=== PATIENT | male | born 1965 | race Caucasian/White ===

== ENCOUNTER 2020-12-07 13:44 | Observation (INO) | payer SELFPAY ==
[2020-12-07] VITALS (11 sets, daily range): BP systolic 128–179; BP diastolic 92–122; PULSE 101–128; RESP 17–23; TEMP 36.9–37.1; O2SAT 93–97; BMI 30.9; BMI 31.1
--- NOTE | 2020-12-07 13:50 | CM.ED ---
SOCIAL WORK Referral Source: [place] [employer] Informed by Officer Yamile, police were called for welfare check due to foul odor coming from the home. When officer entered home there was a dog that had been there for 3 weeks. Patient not caring for self, dog feces and flies throughout the home. Patient fell while officer in the home, unsteady gait, and infections to legs. Nursing staff has been updated. Plan: Anticipate admission Gentry Lowery MSW, PARTS CLERK
--- NOTE | 2020-12-07 14:25 | EX.ED.DYSGE1 ---
HPI History of Present Illness Chief Complaint: Fall Informant: patient and EMS Narrative Narrative: Patient is a 55-year-old male with no known past medical history who presents to the emergency department for wounds on his bilateral lower legs. Somebody called the police because a foul odor was coming from his apartment. They thought that somebody in there. It turns out that the patient's dog and he did not get rid of the body yet. He states that due to the leg pain he has not been doing much for the past 2 to 3 weeks. He has not been bathing either. The police state that the floor the house was covered in feces. Patient otherwise denies any other symptoms. He denies any fevers or chills. No chest pain or shortness of breath. No abdominal pain or nausea/vomiting. No change in moving bowels. He states he did have wounds on his legs before in the past but has been many years. He has not been doing anything for them. Patient does admit to drinking and smoking but states he has not done this over the past few weeks. PFSH PFS Medical History Migraines Smoker Home Medications NK 12/07/20 [History Last Taken Unknown] Allergy/AdvReac Type Severity Reaction Status Date / Time No Known Allergies Allergy Verified 12/07/20 13:50 Family History (Updated 12/07/20 @ 17:31 by Ashlyn Conley NP, CAN REFORMING MACHINE OPERATOR-C) Father Cancer Mother Cancer Brother Hypertension Surgical History (Updated 12/07/20 @ 17:32 by Ashlyn Conley NP, CAN REFORMING MACHINE OPERATOR-C) S/P tonsillectomy Social History (Updated 12/07/20 @ 17:37 by Ashlyn Conley NP, CAN REFORMING MACHINE OPERATOR-C) household members: other details: alone housing: apartment Smoking Status: Current every day smoker tobacco type: cigarettes alcohol intake: current substance use type: does not use ROS ROS ED Constitutional Constitutional ED: Denies chills or fever(s) Eyes Eyes: Denies change in vision ENT ENT ED: Denies epistaxis or rhinorrhea Cardiovascular Cardiovascular: Denies chest pain or palpitations Respiratory/Chest Respiratory/Chest: Denies cough, dyspnea or dyspnea on exertion Gastrointestinal Gastrointestinal: Denies abdominal pain, diarrhea, nausea or vomiting Genitourinary Genitourinary ED: Denies dysuria, hematuria or urinary frequency Musculoskeletal Musculoskeletal: Denies back pain or neck pain Integumentary Reports rash Neurologic Neurologic: Denies dizziness, headache(s) or weakness EXAM Physical Exam Const Vital Signs: 12/07/20 13:44 12/07/20 13:48 12/07/20 14:48 Temperature 98.7 F 98.7 F 98.6 F Temperature Source Oral Temporal Oral Pulse Rate 128 H 127 H 111 H Respiratory Rate 20 H 20 H 19 H Blood Pressure 158/117 H 158/117 H 162/121 H Blood Pressure Mean 130 130 134 Pulse Ox 94 94 95 Oxygen Delivery Method Room Air Room Air Room Air 12/07/20 15:44 12/07/20 15:48 12/07/20 16:00 Temperature 98.5 F 98.5 F Temperature Source Oral Oral Pulse Rate 115 H 109 H 115 H Respiratory Rate 22 H 21 H 23 H Blood Pressure 164/121 H 164/121 H 158/117 H Blood Pressure Mean 135 135 130 Pulse Ox 96 95 97 Oxygen Delivery Method Room Air Room Air Room Air 12/07/20 17:00 Temperature 98.6 F Temperature Source Oral Pulse Rate 106 H Respiratory Rate 17 Blood Pressure 179/122 H Blood Pressure Mean 141 Pulse Ox 97 Oxygen Delivery Method Room Air Positive well nourished and well developed General Appearance ED: well developed and NAD HEENT Reports normocephalic, head/scalp atraumatic and moist mucous membranes Eyes PERRL and EOMs intact bilaterally Neck supple Chest Wall inspection of chest normal Resp normal respiratory effort and clear to auscultation bilaterally Auscultation: Negative for rales, rhonchi or wheezes Cardio regular rhythm and no murmurs Rate: tachycardic GI normal to inspection, nondistended, normoactive bowel sounds and non-tender Palpation: soft; Negative for guarding or rebound tenderness present Extremity Extremity Narrative: There is mild edema of bilateral lower extremities. There are ulcerations with some surrounding area of erythema. There are plaques present as well. Patient's feet are very dirty and unkempt. He otherwise is neurovascularly intact. Neuro no sensory deficits noted Sensorium / Orientation: alert Motor Exam: strength 5/5 throughout Psych mental status grossly normal Skin Skin Narrative: Except for lower extremities no other rashes or lesions noted. MDM MDM MDM Narrative Medical decision making narrative: Patient presents to the emergency department for wounds to his lower legs bilaterally. On arrival to the ED he is mildly hypertensive and tachycardic. The rest of vital signs within normal limits. Apparently patient had a very foul odor coming from his house and a dog was there. There is feces covering the floor of the house as well. Patient denies bathing recently. He has not been taking care of himself for the past few weeks. Patient is agreeable to getting lab work checked at this time. We will start IV fluids given his tachycardia. Patient's lab work did not reveal a high white blood cell count. His lactic acid is high. He is tachycardic and this all could be related dehydration as opposed to sepsis. Patient's blood pressure is severely elevated. He does not follow with a physician regularly. Given the fact he has multiple issues as well as a poor home situation patient will be admitted for further evaluation and management. He understands and is agreeable this plan. He otherwise has remained stable throughout ED stay. Lab Data Labs: Laboratory Results - last 24 hr 12/07/20 12/07/20 12/07/20 13:00 13:00 13:00 WBC 10.7 RBC 4.93 Hgb 16.0 Hct 48.9 MCV 99.2 H MCH 32.5 H MCHC 32.7 RDW Std Deviation 48.0 H RDW Coeff of Flor 13.2 Plt Count 344 MPV 10.3 Immature Gran % (Auto) 1.800 H Neut % (Auto) 77.4 H Lymph % (Auto) 11.4 L [place] % (Auto) 7.2 Eos % (Auto) 1.4 Baso % (Auto) 0.8 Absolute Neuts (auto) 8.3 H Absolute Lymphs (auto) 1.22 Nucleated RBC % 0 Sodium 135 L Potassium 3.9 Chloride 100 Carbon Dioxide 29.0 Anion Gap 6 BUN 17 Creatinine 1.49 H Estim Creat Clear Calc 55.47 Est GFR (MDRD) Af Amer 63 Est GFR (MDRD) Non-Af 52 L BUN/Creatinine Ratio 11.4 Glucose 138 H Lactic Acid 5.0 H* Calcium 9.3 Total Bilirubin 0.40 AST 16 ALT 18 Alkaline Phosphatase 100 Total Protein 8.4 H Albumin 2.9 L Globulin 5.5 H Albumin/Globulin Ratio 0.5 L Radiography Diagnostic Testing: Radiology Impression Chest X-Ray 12/07/20 17:08 IMPRESSION: Normal x-ray examination of the chest. Electronically Signed: Eliu Chaudhary MD at 17:22 EDT Tel , Service support , Discharge Plan Dx/Rx/DC Orders Clinical Impression: Leg wound, right, Leg wound, left, Hypertension, uncontrolled, Adult failure to thrive, Dehydration Disposition Disposition: Acute Care [facility] Discharge Date/Time: 12/07/20 17:37
[2020-12-07 14:29] LABS: Absolute Lymphocyte Count 1.22 X10^3/uL (0.83-4.51); Absolute Neutrophil Count 8.3 X10^3/uL (2.0-7.7); Basophil# 0.09 X10^3/uL; Basophil% 0.8 % (0-1); Eosinophil# 0.15 X10^3/uL; Eosinophils% 1.4 % (0-5); Hematocrit 48.9 % (40-54); Lymphocyte # 1.22 X10^3/ul (0.83-4.51); Lymphocyte % 11.4 % (19-41); Mean Corp Hgb Conc 32.7 g/dL (32-36); Mean Corpuscular Hgb 32.5 pg (27.0-32.0); Mean Corpuscular Volume 99.2 fL (80-94); Mean Platelet Vol. 10.3 fl (6.2-12.0); Monocyte# 0.77 X10^3/uL; Monocyte% 7.2 % (0-10); NRBC Flagged by Analyzer 0 % (0-5); Neutrophil # 8.25 X10^3/uL (2.7-7.7); Neutrophil % 77.4 % (47-70); Platelet Count 344 K/mm3 (150-450); RBC Distribution Width CV 13.2 % (11.6-14.6); Red Blood Count 4.93 M/mm3 (4.6-6.2); White Blood Count 10.7 K/mm3 (4.4-11.0)
[2020-12-07 14:45] LABS: ALB/GLOB Ratio 0.5 RATIO (0.9-2.4); AST(SGOT) 16 U/L (15-37); Alanine Aminotransfer ALT/SGPT 18 U/L (16-61); Albumin, Serum 2.9 g/dL (3.2-5.0); Alkaline Phosphatase 100 U/L (45-117); Anion Gap 6 (5-15); BUN 17 mg/dL (7-18); BUN/Creat Ratio 11.4 RATIO (10-20); Calcium,Total 9.3 mg/dL (8.5-10.1); Chloride 100 mmol/L (98-107); Creatinine, Serum 1.49 mg/dL (0.70-1.30); EST Glomerular Filtration Rate 52 mL/min (>60); Est Glom Filt Rate - Afr Amer 63 mL/min (>60); Estimated Creatinine Clearance 55.47 ml/min; Globulin 5.5 g/dL (2.2-4.2); Glucose 138 mg/dL (74-106); Potassium 3.9 mmol/L (3.5-5.1); Protein, Total 8.4 g/dL (6.4-8.2); Sodium Level 135 mmol/L (136-145)
[2020-12-07] MEDS: 0.9% Normal Saline 1,000 ML 1000 ML IV ×2 (15:00→16:23)
[2020-12-07] MEDS: Cefazolin 2 GM in 0.9% Normal Saline 100 ML IV (15:58)
--- NOTE | 2020-12-07 17:04 | NURSING ---
MED SURG OBS DR TITUS UNCONTROLLED HTN, DEHYDRATION
--- NOTE | 2020-12-07 17:08 | RAD_ITS ---
STUDY: X-RAY CHEST REASON FOR EXAM: Male, 55 years old. elev lactic TECHNIQUE: Single AP portable view of the chest. COMPARISON: None. FINDINGS: The lungs are clear and expanded. There is no demonstrated pleural abnormality. Normal size heart. Normal mediastinum and mateo. Normal visualized pulmonary arteries. Normal visualized aortic arch and descending thoracic aorta. Normal visualized thoracic spine. Normal visualized ribs, clavicles, and shoulders. There is no demonstrated abnormality of the visualized soft tissue structures of the upper abdomen. RAD/Chest 1 View (Portable) IMPRESSION: Normal x-ray examination of the chest. Electronically Signed: Eliu Chaudhary MD at 17:22 EDT Tel , Service support ,
--- NOTE | 2020-12-07 17:16 | PCM.HP.STD ---
Documented by User: Ashlyn Conley NP, ELECTRICAL CONSTRUCTION PROJECT MANAGER-C 12/07/20 17:45 HPI - General General Date of Admission: 12/07/20 Date of Service: 12/07/20 Chief Complaint: Unable to care for self. HPI Narrative DAYAMI BHAT, is a 55 M who presents to the emergency room due to difficulty caring for self. Patient's neighbor called EMS for a well check due to foul smell coming from patient's apartment. Upon arrival, EMS found a dog that had approximately 3 weeks prior, dog feces on the floor. Patient was found very unkempt with feces on his feet and underneath his toenails, lower extremity wounds. Discussed with patient in the emergency room why he has not been taking care of himself and he says he has been lazy. He had not taking care of the dog due to procrastinating. He denies any history of mental illness or prior medical history. He is not on any medications. States he has not followed with a doctor for many years. He reports the past few weeks he has been feeling weak and has been using a cane to walk around the house. He has not been able to leave the house in a few weeks. He has not been bathing or taking care of himself at home. He does report a history of alcohol use although states it is not in excess and tobacco dependence however he has not used either in 2 weeks due to unable to leave the house due to lower extremity weakness. He states he has been unemployed for approximately 1 year. He does not have any family or friends locally to help take care of him. He reports his parents are and he is a twin brother who lives in [place]. He states his lower extremity wounds have been there for a few weeks. He denies fever, chills. Denies other presenting symptoms or complaints with the exception of lower extremity weakness. PFSH Medical History Migraines Smoker no medical history Home Medications NK 12/07/20 [History Last Taken Unknown] Allergy/AdvReac Type Severity Reaction Status Date / Time No Known Allergies Allergy Verified 12/07/20 13:50 Family History (Updated 12/07/20 @ 17:31 by Ashlyn Conley NP, ELECTRICAL CONSTRUCTION PROJECT MANAGER-C) Father Cancer Mother Cancer Brother Hypertension Surgical History (Updated 12/07/20 @ 17:32 by Ashlyn Jarvis ELECTRICAL CONSTRUCTION PROJECT MANAGER, ELECTRICAL CONSTRUCTION PROJECT MANAGER-C) S/P tonsillectomy Social History (Updated 12/07/20 @ 17:37 by Ashlyn Conley NP, ELECTRICAL CONSTRUCTION PROJECT MANAGER-C) household members: other details: alone housing: apartment Smoking Status: Current every day smoker tobacco type: cigarettes alcohol intake: current substance use type: does not use ROS Constitutional Constitutional: Denies change in weight, chills, fatigue, fever(s) or weakness Cardiovascular Cardiovascular: Denies chest pain, edema, lightheadedness, palpitations or syncope Respiratory/Chest Respiratory/Chest: Denies cough, dyspnea, productive cough, shortness of breath at rest, shortness of breath with exertion or wheezing Gastrointestinal Gastrointestinal: Denies abdominal pain, constipation, diarrhea, nausea or vomiting Genitourinary Genitourinary: Denies burning urination, difficulty urinating, dysuria, hematuria, urinary frequency, urinary incontinence or urinary urgency Musculoskeletal Musculoskeletal: Denies back pain, joint pain or muscle weakness Integumentary Integumentary: Reports erythema, wounds and other Details: lower extremity wounds ; Denies lesions or rash Neurologic Neurologic: Denies abnormal speech, confusion, dizziness, focal weakness, numbness, paresthesias, seizure-like activity or syncope Psychiatric Psychiatric: Denies anxiety or depression Hematologic/Lymphatic Hematologic/Lymphatic: Denies anemia, easy bleeding or easy bruising Allergic/Immunologic Allergic/Immunologic: Denies hives or asthma Vital Signs Vital Signs Vital Signs: 12/07/20 13:44 12/07/20 13:48 12/07/20 14:48 Temperature 98.7 F 98.7 F 98.6 F Temperature Source Oral Temporal Oral Pulse Rate 128 H 127 H 111 H Respiratory Rate 20 H 20 H 19 H Blood Pressure 158/117 H 158/117 H 162/121 H Blood Pressure Mean 130 130 134 Pulse Ox 94 94 95 Oxygen Delivery Method Room Air Room Air Room Air 12/07/20 15:44 12/07/20 15:48 12/07/20 16:00 Temperature 98.5 F 98.5 F Temperature Source Oral Oral Pulse Rate 115 H 109 H 115 H Respiratory Rate 22 H 21 H 23 H Blood Pressure 164/121 H 164/121 H 158/117 H Blood Pressure Mean 135 135 130 Pulse Ox 96 95 97 Oxygen Delivery Method Room Air Room Air Room Air Weight Weight: 203 lb 4.259 oz Body Mass Index (BMI) 30.9 Physical Exam Const alert, oriented x3 and no apparent distress Orientation / Consciousness: awake, oriented to person, oriented to place and oriented to time HEENT normocephalic and moist oral mucous membranes Eyes PERRL, EOMs intact bilaterally and conjunctivae normal Neck no lymphadenopathy Resp normal respiratory effort and clear to auscultation bilaterally Cardio regular rate, regular rhythm and no murmurs Peripheral Pulses: pulses 2+ throughout GI normal to inspection, nondistended, normoactive bowel sounds, non-tender and non-distended Extremity normal to inspection Skin Skin Narrative: Lower extremity extensive venous stasis skin changes with skin crusting, erythema and edema. Stool under toenails and on feet. Lesions: no lesions Rashes: no rashes Trauma: no lacerations or abrasions Neuro CN's II-XII intact bilaterally, no focal motor deficits, no sensory deficits noted and deep tendon reflexes 2+ bilaterally Psych mental status grossly normal Mood & Affect: flat affect Results Lab / Micro Data Result Diagrams: 12/07/20 13:00 12/07/20 13:00 Labs: Laboratory Results - last 24 hr 12/07/20 13:00: WBC 10.7, RBC 4.93, Hgb 16.0, Hct 48.9, MCV 99.2 H, MCH 32.5 H, MCHC 32.7, RDW Std Deviation 48.0 H, RDW Coeff of Flor 13.2, Plt Count 344, MPV 10.3, Immature Gran % (Auto) 1.800 H, Neut % (Auto) 77.4 H, Lymph % (Auto) 11.4 L, [place] % (Auto) 7.2, Eos % (Auto) 1.4, Baso % (Auto) 0.8, Absolute Neuts (auto) 8.3 H, Absolute Lymphs (auto) 1.22, Nucleated RBC % 0 12/07/20 13:00: Sodium 135 L, Potassium 3.9, Chloride 100, Carbon Dioxide 29.0, Anion Gap 6, BUN 17, Creatinine 1.49 H, Estim Creat Clear Calc 55.47, Est GFR (MDRD) Af Amer 63, Est GFR (MDRD) Non-Af 52 L, BUN/Creatinine Ratio 11.4, Glucose 138 H, Calcium 9.3, Total Bilirubin 0.40, AST 16, ALT 18, Alkaline Phosphatase 100, Total Protein 8.4 H, Albumin 2.9 L, Globulin 5.5 H, Albumin/Globulin Ratio 0.5 L 12/07/20 13:00: Lactic Acid 5.0 H* Assessment & Plan Assessment/Plan (1) Failure to thrive: (2) HTN (hypertension): PLAN: 1. Elevated blood pressure without known history of hypertension-suspect longstanding history of hypertension, patient has not been to the doctor in many years. Begin lisinopril 20 mg twice daily and Lopressor 25 mg twice daily. As needed hydralazine. Obtain echocardiogram. 2. Elevated creatinine-CKD versus AG. Unknown baseline. Possibly CKD related to uncontrolled blood pressure. Will hydrate and repeat BMP. 3. Bilateral lower extremity stasis dermatitis-wash lower extremities with soap and water, Adaptic to scabbed areas followed by Deirdre and Thomas nguyen. Podiatry consult for toenail management. 4. Failure to thrive-patient found to have dog in his apartment for 3 weeks. Has not been bathing or taking care of himself. Suspect underlying mental illness. Will obtain behavioral health consult/social work consult. PT/OT. DVT prophylaxis-Heparin subcu This patient was seen by ISAIAS Corbett under the supervision of Dr. Holden. Documented by User: Dr. Kirit Holden DO 12/07/20 18:19 HPI - General General Date of Admission: 12/07/20 [facility] Medical History Migraines Smoker Home Medications NK 12/07/20 [History Last Taken Unknown] Allergy/AdvReac Type Severity Reaction Status Date / Time No Known Allergies Allergy Verified 12/07/20 13:50 Family History (Updated 12/07/20 @ 17:31 by Ashlyn Conley NP, ELECTRICAL CONSTRUCTION PROJECT MANAGER-C) Father Cancer Mother Cancer Brother Hypertension Surgical History (Updated 12/07/20 @ 17:32 by Ashlyn Conley NP, ELECTRICAL CONSTRUCTION PROJECT MANAGER-C) S/P tonsillectomy Social History (Updated 12/07/20 @ 17:37 by Ashlyn Conley ELECTRICAL CONSTRUCTION PROJECT MANAGER, ELECTRICAL CONSTRUCTION PROJECT MANAGER-C) household members: other details: alone housing: apartment Smoking Status: Current every day smoker tobacco type: cigarettes alcohol intake: current substance use type: does not use Results Lab / Micro Data Result Diagrams: 12/07/20 13:00 12/07/20 13:00 Charges/Coding Addendum Addendum: Patient was seen and examined today independently of Ashlyn Conley, he was brought to the emergency room today after neighbors at his apartment complex complained of a smell coming from his apartment, it was noted that he had a dad dog in the apartment for several weeks. Patient was unkempt, his apartment was dirty with dog feces on the floor. Work-up in the ER included labs which showed an elevated lactic acid-this was felt to be secondary to dehydration, patient's white blood cell count was unremarkable, he was afebrile, creatinine was slightly elevated. On examination, patient had lower extremity edema along with areas of eschars over his nava areas and lower legs. These areas do not appear infected, there is no discharge from the areas. Patient's toenail care is poor. Lungs were clear to auscultation bilaterally, heart rate and rhythm was regular without evidence of murmurs, normal S1 and S2 was noted. Abdomen is soft, nontender, bowel sounds are present in all 4 quadrants. HEENT-no carotid bruits were noted, no evidence of JVD was noted. Neuro-cranial nerves II through XII are grossly intact, no focal motor deficits were noted. Psych: Patient is alert and oriented x3, he does not appear anxious or depressed. I asked the patient if he had any history of psychiatric disorder and he denied it, I asked him why he kept a animal in his apartment and he stated that I am procrastinator, I asked him why he did not take better care of himself and the patient stated that he was lazy. Patient's blood pressure was noted to be highly elevated in the emergency room, he states he has not seen a doctor in years, he has never been diagnosed with any medical problems. I believe the patient has uncontrolled blood pressure, there may be an element of dehydration present, patient will be placed in [facility], I will begin blood pressure medication and give the patient IV fluids, labs will be monitored. Patient will be seen by PT and OT. I believe the patient probably has some sort of psychiatric disorder-exact type is unknown at this time, he has at least self-neglect. We have reviewed Ashlyn Conley's history and physical including her medical assessment and plan of care and endorse it. Visit Charges OBSV E&M: 25646 Initial observation care L3
[2020-12-07 18:09] LABS: Lactic Acid 1.4 mmol/L (0.4-1.9)
[2020-12-07 18:26] LABS: Reflex Lactate? Y
--- NOTE | 2020-12-07 18:35 | ECHOCS_ITS ---
Reason For Study: HTN Procedure This was a 2D Doppler, Color Flow transthoracic echocardiogram. The study was technically difficult. Contrast injection was performed. Exam performed portable in patient room. Left Ventricle Normal LV size. Moderate concentric left ventricular hypertrophy. Left ventricular systolic function is normal. The estimated ejection fraction is 65 %. Transmitral doppler flow suggestive of impaired relaxation of left ventricle. No regional wall motion abnormalities noted. Right Ventricle Normal RV size. Normal systolic function. Atria Normal left atrium. Normal right atrium. No doppler evidence for ASD. Mitral Valve There is no mitral annular calcification. Normal mitral valve. Trivial mitral valve insufficiency. Tricuspid Valve Normal tricuspid valve. Trivial tricuspid valve insufficiency. Unable to estimate RV systolic pressure/pulmonary artery pressure due to technically difficult study. Aortic Valve Trisinus/trileaflet aortic valve. Normal aortic valve. Trivial aortic valve insufficiency. Pulmonic Valve The pulmonic valve is not well visualized. Great Vessels The aortic root is not well visualized. Pericardium/Pleural No pericardial effusion. Medication Diluted definity 3ml given slow IV push to enhance endocardial definition. MMode/2D Measurements & Calculations LVIDd: 5.0 cm IVSd: 1.5 cm LA dimension: 3.7 cm LVIDs: 2.9 cm LVPWd: 1.4 cm FS: 42.3 % LAV(MOD-bp): 54.4 ml LA A4 area: 19.2 cm2 RA A4 area: 19.9 cm2 LAV(MOD-bp) Indexed: 26.3 ml/m2 LAV(MOD-sp2): 57.9 ml LAV(MOD-sp4): 47.3 ml Time Measurements MV dec time: 0.16 sec Doppler Measurements & Calculations MV E max omar: 58.6 cm/sec Lat Peak E' Omar: 7.6 cm/sec Med Peak E' Omar: 6.3 cm/sec MV A max omar: 82.0 cm/sec E/E' lat: 7.8 E/E' med: 9.3 MV E/A: 0.72 Ao V2 max: 128.4 cm/sec AI max omar: 432.9 cm/sec LV V1 max: 117.8 cm/sec Ao max P.6 mmHg AI max P.0 mmHg LV V1 max P.5 mmHg AI dec slope: 190.9 cm/sec2 AI P1/2t: 664.2 msec PA V2 max: 79.0 cm/sec ECHO/Echo Complete W/ Contrast Interpretation Summary The study was technically difficult. Contrast injection was performed. Left ventricular systolic function is normal. The estimated ejection fraction is 65 %. Moderate concentric left ventricular hypertrophy. Trivial mitral valve insufficiency. Trivial tricuspid valve insufficiency. Trivial aortic valve insufficiency. Unable to estimate RV systolic pressure/pulmonary artery pressure due to techni brenna difficult study. Transmitral doppler flow suggestive of impaired relaxation of left ventricle Ordering Physician: Ashlyn Conley Referring Physician: Maryanne PCP Performed By: Robe Madrigal RCS
[2020-12-07] MEDS: 0.9% Normal Saline 1,000 ML 100 ML IV (19:47)
[2020-12-07] MEDS: 0.9% Saline Lock 10 ML Syringe IV (19:48)
[2020-12-07] MEDS: Metoprolol Tartrate 25 MG Tablet PO (19:55)
[2020-12-07] MEDS: Lisinopril 20 MG Tablet PO (19:55)
[2020-12-07] MEDS: Heparin Injection (Vial) 5,000 UNIT/ML VIAL 5000 UNIT SC (22:03)
[2020-12-08 04:09] VITALS: BP 126/90; PULSE 103; RESP 16; TEMP 36.9; O2SAT 94
[2020-12-08] MEDS: 0.9% Normal Saline 1,000 ML 100 ML IV (04:11)
[2020-12-08 07:49] LABS: Anion Gap 5 (5-15); BUN 10 mg/dL (7-18); BUN/Creat Ratio 10.3 RATIO (10-20); Calcium,Total 8.3 mg/dL (8.5-10.1); Chloride 108 mmol/L (98-107); Creatinine, Serum 0.97 mg/dL (0.70-1.30); EST Glomerular Filtration Rate 86 mL/min (>60); Est Glom Filt Rate - Afr Amer 104 mL/min (>60); Estimated Creatinine Clearance 85.21 ml/min; Glucose 82 mg/dL (74-106); Potassium 3.6 mmol/L (3.5-5.1); Sodium Level 141 mmol/L (136-145)
--- NOTE | 2020-12-08 08:55 | PCM.CONS.GEN ---
Assessment & Plan Assessment/Plan (1) Ulcers of both lower legs with fat layer exposed: (2) Adult failure to thrive: (3) Pain in both lower legs: (4) Left foot pain: (5) Cellulitis of left foot: (6) Cellulitis of right foot: (7) Nail dystrophy: (8) Toe pain, left: (9) Toe pain, right: (10) Ulcer of left heel and midfoot with fat layer exposed: PLAN: Patient seen and examined bedside Patient noted to be unable to take care of himself properly. Patient was found at his house after EMS was called for was that order and patient was found with a dog in his apartment and feces all over the floor in his feet. Feet were cleaned by nursing staff and were noted to have bilateral lower extremity leg ulcerations and left plantar heel ulcer. Patient also has extremity elongated thickened discoloration toenails. We will proceed with palliative care, as well as monitoring. Foot care and footgear has been discussed[place] [address] [place] toenails, with a nail nipper and both length and thickness by angling nail nippers. This was done without incident. Discussed proper wound care with the patient. Patient refused to have wounds debrided. Discussed importance of smoking cessation, blood sugar control, weight management, offloading, proper nutrition, infection control and hygiene to optimize healing potential. Prescription for surgical shoe was given to offload left heel wound. No heel weightbearing to the left foot can put pressure through the forefoot. Cultures were obtained of right leg ulceration. No noted increase in white blood cell count. Patient denies any systemic signs of illness Noted cellulitis marked with a marker on bilateral lower extremities this is improved since patient has been admitted. To continue daily wound care with Santyl to the fibrotic ulcerations bilateral lower extremities and Adaptic to the eschars covered with ABDs, Kerlix, Thomas wraps from toes to knees. All questions answered. Upon discharge patient will need to follow-up at the wound care center with any provider. Thank you for the consult. Please contact if any questions or concerns. Latosha Baptiste DPM [facility] [phone] This note was generated with [employer] dictation software. It may contain incorrect words, spelling, and punctuation that were not noted in checking the note before signing. HPI Consult Data Date of Consult: 12/08/20 HPI Narrative HPI Narrative: DAYAMI BHAT, is a 55 M who presents for failure to thrive. He was noted to have EMS called for wellness check by neighbors after smell was noted from apartment. It was noted that his dog was 3 week on his floor. There was feces on the floor. Patient relates he couldn't take care of the dog nor himself. He denies N/F/V/C/CP/SOB. Podiatry was consulted to assess lower extremity eschars and toenail care. [facility] Medical History Migraines Smoker Home Medications NK 12/07/20 [History Last Taken Unknown] Allergy/AdvReac Type Severity Reaction Status Date / Time No Known Allergies Allergy Verified 12/07/20 13:50 Family History (Updated 12/07/20 @ 17:31 by Ashlyn Conley NP, PRODUCTION PAINTER-C) Father Cancer Mother Cancer Brother Hypertension Surgical History (Updated 12/07/20 @ 17:32 by Ashlyn Conley NP, PRODUCTION PAINTER-C) S/P tonsillectomy Social History (Updated 12/07/20 @ 17:37 by Ashlyn Conley NP, PRODUCTION PAINTER-C) household members: other details: alone housing: apartment Smoking Status: Current every day smoker tobacco type: cigarettes alcohol intake: current substance use type: does not use ROS Constitutional Constitutional: Denies chills or fever(s) Cardiovascular Cardiovascular: Denies chest pain Respiratory/Chest Respiratory/Chest: Denies cough Gastrointestinal Gastrointestinal: Denies nausea or vomiting Musculoskeletal Musculoskeletal: Denies muscle cramps or muscle weakness Neurologic Neurologic: Reports numbness and tingling Physical Exam Const alert and no apparent distress General Appearance: cooperative and comfortable HEENT Head and Scalp: atraumatic Lymph Lymphatic: no lymphedema noted Resp normal respiratory effort Effort and Inspection: able to speak in complete sentences Extremity normal capillary refill and no calf tenderness General Extremity: edema bilateral lower extremity, no tenderness to palpation of joints or extremities and other findings Other Details: Capillary refill time less than 3 seconds noted to digits ; Negative for clubbing or cyanosis Peripheral Pulses: Yes posterior tibial pulses present bilateral diminished and dorsalis pedis pulses present bilateral diminished Skin General Skin Exam: atrophy and dry skin; Negative for ecchymosis, pallor or dermatitis Rashes: no rashes Wounds: wounds noted Wound Narrative: ulcers noted to multiple large bilateral lower legs anterior medial and lateral and plantar left heel No malodor, purulence, probing to bone, fluctuation, crepitus. There is surrounding erythema noted to bilateral leg ulcerations. Majority of wound sites are noted to have eschar noted without pain. There are a couple spots that have fibrotic base. Patient relates pain with palpation of these sites. Skin is atrophic and hairless. There is no erythema noted to plantar left heel wounds. Plantar heel wounds have a fibrotic base. Toenails 28622 bilateral are noted to be thickened elongated dystrophic discolored with feces noted under the nails. These are also causing patient pain to palpation. No pain to ATFL or CFL bilaterally no pain to lateral malleolus. Neuro Gait (Neuro): assistive device used cane Sensory Exam: extremities light-touch: decreased Psych Appearance: appropriate Attitude: calm Lab / Micro Data Result Diagrams: 12/07/20 13:00 12/08/20 06:54 Labs: Laboratory Results - last 24 hr 12/07/20 13:00: WBC 10.7, RBC 4.93, Hgb 16.0, Hct 48.9, MCV 99.2 H, MCH 32.5 H, MCHC 32.7, RDW Std Deviation 48.0 H, RDW Coeff of Flor 13.2, Plt Count 344, MPV 10.3, Immature Gran % (Auto) 1.800 H, Neut % (Auto) 77.4 H, Lymph % (Auto) 11.4 L, [place] % (Auto) 7.2, Eos % (Auto) 1.4, Baso % (Auto) 0.8, Absolute Neuts (auto) 8.3 H, Absolute Lymphs (auto) 1.22, Nucleated RBC % 0 12/07/20 13:00: Sodium 135 L, Potassium 3.9, Chloride 100, Carbon Dioxide 29.0, Anion Gap 6, BUN 17, Creatinine 1.49 H, Estim Creat Clear Calc 55.47, Est GFR (MDRD) Af Amer 63, Est GFR (MDRD) Non-Af 52 L, BUN/Creatinine Ratio 11.4, Glucose 138 H, Calcium 9.3, Total Bilirubin 0.40, AST 16, ALT 18, Alkaline Phosphatase 100, Total Protein 8.4 H, Albumin 2.9 L, Globulin 5.5 H, Albumin/Globulin Ratio 0.5 L 12/07/20 13:00: Lactic Acid 5.0 H* 12/07/20 17:28: Lactic Acid 1.4 12/08/20 06:54: Sodium 141, Potassium 3.6, Chloride 108 H, Carbon Dioxide 28.0, Anion Gap 5, BUN 10, Creatinine 0.97, Estim Creat Clear Calc 85.21, Est GFR (MDRD) Af Amer 104, Est GFR (MDRD) Non-Af 86, BUN/Creatinine Ratio 10.3, Glucose 82, Calcium 8.3 L Radiology Impression Chest X-Ray 12/07/20 17:08 IMPRESSION: Normal x-ray examination of the chest. Electronically Signed: Eliu Chaudhary MD at 17:22 EDT Tel , Service support ,
[2020-12-08 10:05] VITALS: BP 155/101; PULSE 94; RESP 16; TEMP 36.8; O2SAT 97
[2020-12-08 10:51] VITALS: BP 155/101; PULSE 94
[2020-12-08] MEDS: Metoprolol Tartrate 25 MG Tablet PO (10:51)
[2020-12-08] MEDS: Lisinopril 20 MG Tablet PO (10:51)
[2020-12-08] MEDS: Heparin Injection (Vial) 5,000 UNIT/ML VIAL 5000 UNIT SC (10:52)
[2020-12-08] MEDS: Menthol/Lanolin/Calamine/Znox 113 GM Tube 1 APPLIC TOPICAL (10:52)
[2020-12-08 10:54] LABS: M R Staph aureus DNA By PCR Negative (Negative); Probe Check PASS; Specimen Processing Control PASS; Staph aureus DNA By PCR NEGATIVE (Negative)
--- NOTE | 2020-12-08 11:44 | PCM.DC ---
Discharge Instructions Diet Discharge Diet: No restrictions Activity Discharge Activity: Return to Normal Activity Additional Activity Instructions:: Keep lower extremities elevated. Dressing / Incision Call your doctor if you observe: Fever of 101 or Higher, Shortness of breath, Dizziness and Chest pain Follow Up Care Test Results: Test results from this visit will be discussed in further detail at your follow-up appointment, if applicable. Discharge Plan Admission Admit Date/Time: 12/07/20 17:22 Primary Reason for Your Visit: Weakness, lower extremity wounds Attending Provider: Kirit Holden Primary Care Provider: Care Physician,No Primary Consulting Providers: Latosha Baptiste Instructions Additional Instructions / Restrictions: Continue wound care at home to lower extremities. Apply Santyl to ulcerations of lower extremities and Adaptic to the darkened areas, cover with ABDs, Kerlix and Thomas wraps from toes to knees. Recommend follow-up with wound center Discharge Orders/Prescriptions Prescriptions: New lisinopril 20 mg Tablet 20 mg PO BID Qty: 60 RF: 0 Santyl 250 unit/gram Ointment 1 applic topical DAILY Qty: 0 RF: 0 metoprolol tartrate 25 mg Tablet 25 mg PO BID Qty: 60 RF: 0 Referrals / Follow Up: Wound Health [Outside] (Any provider, 1 to 2 weeks after discharge) Care Physician,No Primary [Primary Care Provider] - See Referral Note (Established with PCP and follow-up in 1 week.) Disposition Disposition (needs filled in before D/C Order can be placed): Home, Self Care
--- NOTE | 2020-12-08 11:59 | DS.PCM_ITS ---
Documented by User: Ashlyn Conley NP, STAFF PHYSICAL THERAPY ASSISTANT-C 12/08/20 12:08 Providers Date of Admission: 12/07/20 Date of Discharge: 12/08/20 Primary Care Physician: Maryanne Primary Care Phys Consultations 12/07/20 18:35 Consult: Onc/Wound/abalone sheller Routine Comment: Consult: Podiatry Routine Consulting Provider: Latosha Baptiste Reason for Consult: Toenail care EMERGENT Consult: No MD Notified: Yes Date Notified: 12/07/20 Time Notified: 18:38 Method of Notification: Text Reason For Visit: FAILURE TO THRIVE Diagnosis Discharge Diagnosis (1) Ulcers of both lower legs with fat layer exposed: Status: Acute Code(s): L97.912 - Non-pressure chronic ulcer of unspecified part of right lower leg with fat layer exposed; L97.922 - Non-pressure chronic ulcer of unspecified part of left lower leg with fat layer exposed (2) Adult failure to thrive: Status: Acute Code(s): R62.7 - Adult failure to thrive (3) Pain in both lower legs: Status: Acute Code(s): M79.661 - Pain in right lower leg; M79.662 - Pain in left lower leg (4) Left foot pain: Status: Acute Code(s): M79.672 - Pain in left foot (5) Cellulitis of left foot: Status: Acute Code(s): L03.116 - Cellulitis of left lower limb (6) Cellulitis of right foot: Status: Acute Code(s): L03.115 - Cellulitis of right lower limb (7) Nail dystrophy: Status: Acute Code(s): L60.3 - Nail dystrophy (8) Toe pain, left: Status: Acute Code(s): M79.675 - Pain in left toe(s) (9) Toe pain, right: Status: Acute Code(s): M79.674 - Pain in right toe(s) (10) Ulcer of left heel and midfoot with fat layer exposed: Status: Acute Code(s): L97.422 - Non-pressure chronic ulcer of left heel and midfoot with fat layer exposed Medications at Discharge Home Medications collagenase clostridium histo. [Santyl] 1 applic TOPICAL DAILY #0 g 12/08/20 lisinopril 20 mg PO BID #60 tab 12/08/20 metoprolol tartrate 25 mg PO BID #60 tab 12/08/20 Hospital Course Operations None Procedures 2-D Echocardiogram Summary of Care Provided Minutes Spent on Discharge: 35 Hospital Course: Patient is a 55-year-old male admitted 12/07/2020 due to weakness and difficulty caring for self. 1. Elevated blood pressure without known history of hypertension-suspect longstanding history of hypertension, patient has not been to the doctor in many years. Initiated on lisinopril 20 mg twice daily and Lopressor 25 mg twice daily. Blood pressure improved. Will need further BP monitoring at home. Echocardiogram completed, report pending and will be reviewed prior to discharge. Follow-up with PCP in 1 week. 2. Acute kidney injury-resolved with IV fluids. 3. Bilateral lower extremity stasis dermatitis with stasis ulcerations-podiatry consulted, toenail care provided. Continue wound care at home with Santyl to fibrotic ulcerations bilateral extremities and Adaptic to eschars, cover with ABDs, Kerlix and Thomas wraps. Referred to wound center for follow-up. 4. Failure to thrive-patient found to have dog in his apartment for 3 weeks. Has not been bathing or taking care of himself. Suspect underlying mental illness. Social work consulted during admission. Patient is not found to be a threat to himself or others at this time. Referred to behavioral health for outpatient follow-up. Declines further needs. Physical Exam Const alert, oriented x3 and no apparent distress Orientation / Consciousness: awake, oriented to person, oriented to place and oriented to time HEENT normocephalic and moist oral mucous membranes Eyes PERRL, EOMs intact bilaterally and conjunctivae normal Neck no lymphadenopathy Resp normal respiratory effort and clear to auscultation bilaterally Cardio regular rate, regular rhythm and no murmurs Peripheral Pulses: pulses 2+ throughout GI normal to inspection, nondistended, normoactive bowel sounds, non-tender and non-distended Extremity normal to inspection Skin Skin Narrative: Lower extremity extensive venous stasis skin changes with skin crusting, erythema and edema. Stool under toenails and on feet. Lesions: no lesions Rashes: no rashes Trauma: no lacerations or abrasions Neuro CN's II-XII intact bilaterally, no focal motor deficits, no sensory deficits noted and deep tendon reflexes 2+ bilaterally Psych mental status grossly normal Mood & Affect: flat affect Patient seen and examined prior to discharge. Physical assessment as noted above. Patient is stable for discharge with follow up recommendations as noted above. This patient was seen by ISAIAS Corbett under the supervision of Dr. Holden. Weight / BMI Weight Weight: 205 lb Body Mass Index (BMI) 31.1 ABG / Lab / Microbiology Data Result Diagrams: 12/07/20 13:00 12/08/20 06:54 Laboratory: Laboratory Results - last 24 hr 12/07/20 13:00: WBC 10.7, RBC 4.93, Hgb 16.0, Hct 48.9, MCV 99.2 H, MCH 32.5 H, MCHC 32.7, RDW Std Deviation 48.0 H, RDW Coeff of Flor 13.2, Plt Count 344, MPV 10.3, Immature Gran % (Auto) 1.800 H, Neut % (Auto) 77.4 H, Lymph % (Auto) 11.4 L, [place] % (Auto) 7.2, Eos % (Auto) 1.4, Baso % (Auto) 0.8, Absolute Neuts (auto) 8.3 H, Absolute Lymphs (auto) 1.22, Nucleated RBC % 0 12/07/20 13:00: Sodium 135 L, Potassium 3.9, Chloride 100, Carbon Dioxide 29.0, Anion Gap 6, BUN 17, Creatinine 1.49 H, Estim Creat Clear Calc 55.47, Est GFR (MDRD) Af Amer 63, Est GFR (MDRD) Non-Af 52 L, BUN/Creatinine Ratio 11.4, Glucose 138 H, Calcium 9.3, Total Bilirubin 0.40, AST 16, ALT 18, Alkaline Phosphatase 100, Total Protein 8.4 H, Albumin 2.9 L, Globulin 5.5 H, Albumin/Globulin Ratio 0.5 L 12/07/20 13:00: Lactic Acid 5.0 H* 12/07/20 17:28: Lactic Acid 1.4 12/08/20 06:54: Sodium 141, Potassium 3.6, Chloride 108 H, Carbon Dioxide 28.0, Anion Gap 5, BUN 10, Creatinine 0.97, Estim Creat Clear Calc 85.21, Est GFR (MDRD) Af Amer 104, Est GFR (MDRD) Non-Af 86, BUN/Creatinine Ratio 10.3, Glucose 82, Calcium 8.3 L 12/08/20 09:00: S.aureus Protein A PCR NEGATIVE, MRSA (PCR) Negative Radiography Diagnostic Testing: Radiology Impression Chest X-Ray 12/07/20 17:08 IMPRESSION: Normal x-ray examination of the chest. Electronically Signed: Eliu Chaudhary MD at 17:22 EDT Tel , Service support , D/C Instructions Discharge Diet: No restrictions Additional Activity Instructions: Keep lower extremities elevated. Call your doctor if you observe: Fever of 101 or Higher, Shortness of breath, Dizziness and Chest pain Meaningful Use Info Meaningful Use Diagnoses (Choose all that apply): None applicable Discharge Plan Admission Admit Date/Time: 12/07/20 17:22 Primary Reason for Your Visit: Weakness, lower extremity wounds Attending Provider: Kirit Holden Primary Care Provider: Care Physician,No Primary Consulting Providers: Latosha Baptiste Instructions Additional Instructions / Restrictions: Continue wound care at home to lower extremities. Apply Santyl to ulcerations of lower extremities and Adaptic to the darkened areas, cover with ABDs, Kerlix and Thomas wraps from toes to knees. Recommend follow-up with wound center Discharge Orders/Prescriptions Prescriptions: New Santyl 250 unit/gram Ointment 1 applic topical DAILY Qty: 0 RF: 0 metoprolol tartrate 25 mg tablet 25 mg PO BID Qty: 60 RF: 1 lisinopril 20 mg tablet 20 mg PO BID Qty: 60 RF: 1 Referrals / Follow Up: Wound Health [Outside] (Any provider, 1 to 2 weeks after discharge) Care Physician,No Primary [Primary Care Provider] - See Referral Note (Established with PCP and follow-up in 1 week.) Disposition Disposition (needs filled in before D/C Order can be placed): Home, Self Care Documented by User: Dr. Kirit Holden DO 12/08/20 14:48 Providers Date of Admission: 12/07/20 Reason For Visit: FAILURE TO THRIVE Medications at Discharge Home Medications collagenase clostridium histo. [Santyl] 1 applic TOPICAL DAILY #0 g 12/08/20 lisinopril 20 mg PO BID #60 tab 12/08/20 metoprolol tartrate 25 mg PO BID #60 tab 12/08/20 ABG / Lab / Microbiology Data Result Diagrams: 12/07/20 13:00 12/08/20 06:54 Discharge Plan Admission Admit Date/Time: 12/07/20 17:22 Primary Reason for Your Visit: Weakness, lower extremity wounds Attending Provider: Kirit Holden Primary Care Provider: Care Physician,No Primary Consulting Providers: Latosha Baptiste Instructions Additional Instructions / Restrictions: Continue wound care at home to lower extremities. Apply Santyl to ulcerations of lower extremities and Adaptic to the darkened areas, cover with ABDs, Kerlix and Thomas wraps from toes to knees. Recommend follow-up with wound center Discharge Orders/Prescriptions Prescriptions: New Santyl 250 unit/gram Ointment 1 applic topical DAILY Qty: 0 RF: 0 metoprolol tartrate 25 mg tablet 25 mg PO BID Qty: 60 RF: 1 lisinopril 20 mg tablet 20 mg PO BID Qty: 60 RF: 1 Referrals / Follow Up: Wound Health [Outside] (Any provider, 1 to 2 weeks after discharge) Care Physician,No Primary [Primary Care Provider] - See Referral Note (Established with PCP and follow-up in 1 week.) Disposition Disposition (needs filled in before D/C Order can be placed): Home, Self Care Charges/Coding Addendum Addendum: Patient was seen and examined today independently of Ashlyn Conley, he voices no complaints this examiner, patient's creatinine has normalized, his blood pressure is improved on blood pressure medication. On examination he appeared in good health and spirits. Vital signs as documented. Skin-there are multiple eschared areas over the patient's lower legs , there is generalized lower leg edema-left worse than right. Neck without JVD, neck was supple, trachea midline, thyroid was normal. Lungs clear bilaterally, normal air movement was noted. Heart exam notable for regular rhythm, normal sounds and absence of murmurs, rubs or gallops. Abdomen unremarkable and without evidence of organomegaly, masses, or abdominal aortic enlargement. Bowel sounds are present, abdomen is not distended. Extremities nonedematous, no cyanosis was noted, no clubbing was noted. Neuro: Cranial nerves II through XII are grossly intact, no focal motor deficits were noted, sensation to light touch and pinprick intact, motor exam 5/5 throughout. Psych: Patient is alert and oriented x3, he does not appear anxious or depressed, he does not appear agitated. Patient appears stable for discharge at this time, I am not completely convinced the patient does not have some sort of a psychiatric disorder, he has given different answers to questions posed by nursing and social media specialist. nursing services manager talked with him about counseling available in the vicinity. Patient has been urged to follow-up with a PCP regarding his blood pressure. I have reviewed Ashlyn Conley's discharge summary including her medical assessment and plan of care and endorse it. Visit Charges OBSV E&M: 38490 Observation care discharge
--- NOTE | 2020-12-08 12:35 | CASEMGMT ---
NICHOLE Note Referral Source: RN CM Referral Reason: Reports that the patient's dog was in the apartment for 3 weeks, issues? SW met with patient in his room. Patients hygiene is appropriate. Good eye contact. SW asked about patient going home today and who is going to clean the apartment or is the apartment clean. Patient said that he has to contact the landlord as the apartment is not clean. Patient reports that the issue in his house is primarily dog feces. (Of note, patient told Dr. Lea that the landlord cleaned up his apartment). Patient said that his dog,that , was 18 years old. Patient said that the city disposed of the dog and stated he believes the dog was put in the dumpster. Patient said that he has had an difficult year as he moved to [place] for a job transfer ([employer] in [place]) and then was let go from his job. Patient said that his mom also within the past year. Patient said that he is living off his inheritance. Patient said that he feels comfortable going home. SW discussed the benefit of support from the counseling center or [place] ( [facility] )Behavioral Health. Patient said that he plans to take a cab home. Patient said that he does need clothes to go home. SW will speak to RN. Of note patient is inconsistent in his report of the circumstance as He told this bond underwriter his dog was 18 years old when the dog and told staff technologist the dog was 20 years old. Patient had told staff the dog was for 3 weeks but he told this bond underwriter the dog was for 1 1/2 weeks and that he didn't remove the dog as I was lying on the couch with this and pointed to his legs. In the ED he told staff he was laid off from his job and he told this bond underwriter he lost his job.Patient appears to be a poor historian due to varying reports he presents to individuals. NICHOLE provided the following Self Pay Packet which included information on [facility] and [facility] medicaid application. NICHOLE explained the location and purpose of [facility] SW provided handout on the location and contact for [facility] as well as their Crisis Contact number. NICHOLE provided handout on [facility]. SW offered to make referral to [facility] or any referrals but patient said I am ok and indicated he felt he could make the referrals. Patient voiced no additional concerns or issues. SW remains available. Plan: Home Anila GILBERT
[2020-12-08 14:04] VITALS: BP 148/100; PULSE 80; RESP 18; TEMP 36.8; O2SAT 97
== END 2020-12-08 15:08 | disposition home or self-care (01) ==
LOC: ED 15:49 → MS3 17:40
PROVIDERS: Nurse Practitioner Family; Podiatrist Foot & Ankle Surgery; Admitting Provider Internal Medicine; Emergency Provider Emergency Medicine; Visit Provider Internal Medicine
DX: R62.7 Adult failure to thrive (principal); I10 Essential (primary) hypertension; N17.9 Acute kidney failure, unspecified; F17.210 Nicotine dependence, cigarettes, uncomplicated; E86.0 Dehydration; I87.2 Venous insufficiency (chronic) (peripheral); L03.116 Cellulitis of left lower limb; L03.115 Cellulitis of right lower limb; L60.3 Nail dystrophy; L97.422 Non-pressure chronic ulcer of left heel and midfoot with fat layer exposed; L97.822 Non-pressure chronic ulcer of other part of left lower leg with fat layer exposed; L97.812 Non-pressure chronic ulcer of other part of right lower leg with fat layer exposed; M79.675 Pain in left toe(s); M79.674 Pain in right toe(s); I08.3 Combined rheumatic disorders of mitral, aortic and tricuspid valves
CPT/HCPCS: 36415; 71045; 80048; 80053; 83605; 85025; 87040; 87070; 87075; 87205; 87640; 93306; 96361; 96365; 96372; 99218; 99285; J7030; Q9957; A4216; C8929; G0378; J3490

== ENCOUNTER 2021-02-19 20:05 | Inpatient (IN) | payer MEDICAID, SELFPAY ==
[2021-02-19] VITALS (8 sets, daily range): BP systolic 157–223; BP diastolic 108–144; PULSE 108–136; RESP 17–33; TEMP 37.3–38.1; O2SAT 93–95; BMI 35.4
--- NOTE | 2021-02-19 21:20 | EKG12_ITS ---
Test Reason : DYSRHYTHMIA Blood Pressure : / mmHG Vent. Rate : 126 BPM Atrial Rate : 126 BPM P-R Int : 148 ms QRS Dur : 084 ms QT Int : 314 ms P-R-T Axes : 050 050 078 degrees QTc Int : 454 ms Sinus tachycardia Septal infarct , age undetermined Abnormal ECG Confirmed by HILLARY SCOTT, NICK ([id number]), instructional manager KAREEN MUÑIZ ([id number]) on 02/20/2021 9:11:28 AM Referred By: YUE Confirmed By:NCIK THORNTON MD
--- NOTE | 2021-02-19 21:24 | EX.ED.DYSGE1 ---
HPI History of Present Illness Chief Complaint: Weakness Narrative Narrative: 55-year-old male presenting with bilateral leg cellulitis which is foul-smelling with purulent drainage from bilateral legs. Patient states he has had this problem in the past and was previously admitted to [facility] for treatment. He states that he was not given any follow-up. He was on antibiotics when he left. He admits to sitting around his house a lot. He states he tries to keep his legs clean but cannot remember the last time he took his boots off. He has not had a fever. He has been eating and drinking. He states he sits around a lot and does not have a need to get up and walk around. Patient does state that he has pain in his legs when he ambulates but he can ambulate. He states he noticed maggots on his legs 3 days ago and tried to wash these off but they are not coming off. He states they keep coming back. He states he called EMS to come pick him up because he did not know the way to the hospital. 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 Home Medications NK 02/19/21 [History Last Taken Unknown] Allergy/AdvReac Type Severity Reaction Status Date / Time No Known Allergies Allergy Verified 02/19/21 20:07 Family History Father Cancer Mother Cancer Brother Hypertension Surgical History S/P tonsillectomy Social History household members: other details: alone housing: apartment Smoking Status: Current every day smoker tobacco type: cigarettes alcohol intake: current substance use type: does not use ROS ROS ED Constitutional Constitutional ED: Denies chills or fever(s) Eyes Eyes: Denies blurry vision or diplopia ENT ENT ED: Denies rhinorrhea or sore throat Cardiovascular Cardiovascular: Denies chest pain or palpitations Respiratory/Chest Respiratory/Chest: Denies cough, dyspnea or sputum Gastrointestinal Gastrointestinal: Denies abdominal pain, nausea or vomiting Genitourinary Genitourinary ED: Denies dysuria or hematuria Integumentary Reports rash Neurologic Neurologic: Denies headache(s) or paresthesias EXAM Physical Exam Const Vital Signs: 02/19/21 20:07 02/19/21 20:11 02/19/21 20:12 Temperature 99.1 F Temperature Source Oral Pulse Rate 133 H 133 H Respiratory Rate 33 H Respiratory Effort Normal Non-Labored Blood Pressure 177/108 H Blood Pressure Mean 131 Pulse Ox 93 Oxygen Delivery Method Nasal Cannula 02/19/21 21:54 02/19/21 22:11 02/19/21 22:13 Temperature 99.2 F H 100.6 F H Temperature Source Temporal Temporal Pulse Rate 136 H 108 H Respiratory Rate 27 H 17 Respiratory Effort Blood Pressure 223/133 H 217/144 H 184/117 H Blood Pressure Mean 163 168 139 Pulse Ox 95 Oxygen Delivery Method Room Air 02/19/21 22:20 02/19/21 23:06 02/19/21 23:43 Temperature 100.6 F H 99.1 F Temperature Source Temporal Oral Pulse Rate 113 H Respiratory Rate 26 H Respiratory Effort Blood Pressure 157/138 H Blood Pressure Mean 144 Pulse Ox 93 Oxygen Delivery Method Room Air 02/20/21 00:03 Temperature 99.1 F Temperature Source Oral Pulse Rate 110 H Respiratory Rate 20 H Respiratory Effort Blood Pressure 176/115 H Blood Pressure Mean 135 Pulse Ox 93 Oxygen Delivery Method Room Air Positive obese General Appearance ED: NAD Nutritional Appearance: obese HEENT Reports dry mucous membranes Negative for trauma Mouth ED: Yes dry mucous membranes Mouth: dry mucous membranes Eyes PERRL and EOMs intact bilaterally Chest Wall inspection of chest normal and palpation of chest normal Resp normal respiratory effort and clear to auscultation bilaterally Cardio regular rhythm Rate: tachycardic GI normal to inspection, nondistended, normoactive bowel sounds Neuro oriented x3 and CN's II-XII intact bilaterally Sensorium / Orientation: alert Motor Exam: strength 5/5 throughout Psych mental status grossly normal Skin Skin Narrative: Patient has bilateral lower extremity cellulitis extending from the feet all the way up to the mid calf bilaterally. There is purulent drainage from his wounds. There is sloughing of skin. There is a foul odor with maggots moving all over his legs. No crepitance is appreciated. MDM MDM MDM Narrative Medical decision making narrative: Patient presenting with bilateral leg pain and clear cellulitis with weeping and oozing. Patient does meet SIRS criteria so sepsis work-up was pursued. EKG on my interpretation shows a sinus tachycardia with a ventricular rate of 126 bpm without sign of ischemic change. Chest x-ray on my interpretation shows no acute cardiopulmonary process and the radiologist does agree. CBC shows a slight leukocytosis of 11.1. There is a left shift. Coagulation studies are normal. Renal function and electrolytes are normal. LFTs within normal limits. Urinalysis negative for infection. Lactic acid was 7.8 and therefore he was given 30 cc/kg of IV fluids. Wound cultures were obtained from the bilateral legs. Blood and urine cultures are also pending. After meeting his previous visit it does appear that he has issues caring for himself in the past. He does state that he tries to keep his legs as clean as possible however he told nursing he does not remember when he took his boots off last. Given the obvious source of infection patient was given vancomycin, Flagyl, gentamicin with his IV fluids. Bilateral lower extremity duplexes were obtained and he does have a blood clot in the right superficial gastrocnemius. There were no other clots noted. X-rays of the bilateral feet and tibia were obtained and then my interpretation there is no subcutaneous emphysema, fractures. The radiologist does agree. Patient's wounds were cleaned and dressed.Patient did have a fever of 100.6 and was given Tylenol. His heart rate is now coming down. I will give another dose of labetalol. Patient was discussed with hospitalist due to cellulitis and criteria meeting septic shock. Patient will be admitted to the ICU. Impression: 1. bilateral lower extremity cellulitis 2. Hypertension established?[id number] 3. Septic shock 4. failure to thrive Lab Data Attestation: I reviewed the patient's lab results. Labs: Laboratory Results - last 24 hr 02/19/21 02/19/21 02/19/21 20:30 20:30 20:30 WBC 11.1 H RBC 3.67 L Hgb 12.8 L Hct 38.6 L MCV 105.2 H MCH 34.9 H MCHC 33.2 RDW Std Deviation 58.9 H RDW Coeff of Flor 15.2 H Plt Count 301 MPV 9.8 Immature Gran % (Auto) 0.500 Neut % (Auto) 83.3 H Lymph % (Auto) 4.8 L [place] % (Auto) 11.0 H Eos % (Auto) 0.0 Baso % (Auto) 0.4 Absolute Neuts (auto) 9.3 H Absolute Lymphs (auto) 0.53 L Nucleated RBC % 0 Differential Comment SCANNED PT 13.7 INR 1.1 APTT 34.9 Sodium 140 Potassium 3.5 Chloride 103 Carbon Dioxide 21.0 Anion Gap 16 H BUN 10 Creatinine 0.93 Estim Creat Clear Calc 88.87 Est GFR (MDRD) Af Amer 109 Est GFR (MDRD) Non-Af 90 BUN/Creatinine Ratio 10.8 Glucose 126 H Lactic Acid Calcium 8.3 L Total Bilirubin 0.40 AST 77 H ALT 36 Alkaline Phosphatase 112 Troponin I High Sens 24 Total Protein 7.2 Albumin 2.3 L Globulin 4.9 H Albumin/Globulin Ratio 0.5 L Urine Color Urine Clarity Urine pH Ur Specific [place] Urine Protein Urine Glucose (UA) Urine Ketones Urine Occult Blood Urine Nitrite Urine Bilirubin Urine Urobilinogen Ur Leukocyte Esterase Urine RBC Urine WBC Ur Squamous Epith Cells Urine Bacteria Hyaline Casts Fine Granular Casts Urine Mucus 02/19/21 02/19/21 20:30 22:05 WBC RBC Hgb Hct MCV MCH MCHC RDW Std Deviation RDW Coeff of Flor Plt Count MPV Immature Gran % (Auto) Neut % (Auto) Lymph % (Auto) [place] % (Auto) Eos % (Auto) Baso % (Auto) Absolute Neuts (auto) Absolute Lymphs (auto) Nucleated RBC % Differential Comment PT INR APTT Sodium Potassium Chloride Carbon Dioxide Anion Gap BUN Creatinine Estim Creat Clear Calc Est GFR (MDRD) Af Amer Est GFR (MDRD) Non-Af BUN/Creatinine Ratio Glucose Lactic Acid 7.8 H* Calcium Total Bilirubin AST ALT Alkaline Phosphatase Troponin I High Sens Total Protein Albumin Globulin Albumin/Globulin Ratio Urine Color Yellow Urine Clarity Clear Urine pH 5.0 Ur Specific [place] 1.010 Urine Protein 15 H Urine Glucose (UA) Normal Urine Ketones Negative Urine Occult Blood 25 H Urine Nitrite Negative Urine Bilirubin Negative Urine Urobilinogen Normal Ur Leukocyte Esterase Negative Urine RBC 0 SEEN Urine WBC 0-5 SEEN Ur Squamous Epith Cells 0-5 SEEN Urine Bacteria RARE Hyaline Casts 10-25 SEEN Fine Granular Casts 0-5 SEEN Urine Mucus 0 SEEN Radiography Diagnostic Testing: Clinical Impression(s) from Imaging Studies Foot X-Ray 02/19/21 21:28 IMPRESSION: No acute osseous findings. Diffuse soft tissue swelling Electronically Signed: Neil Lino DO at 23:37 EDT Tel , Service support , Tibia/Fibula X-Ray 02/19/21 21:28 IMPRESSION: Soft tissue swelling without acute osseous finding Electronically Signed: Neil Lino DO at 23:38 EDT Tel , Service support , Venous Duplex 02/19/21 21:31 IMPRESSION: No evidence of DVT bilaterally however, limited exam for reasons above. There appears to be thrombosis of a right gastroc superficial vessel Electronically Signed: Neil Lino DO at 23:20 EDT Tel , Service support , Foot X-Ray 02/19/21 21:36 IMPRESSION: Diffuse soft tissue swelling without acute osseous finding Electronically Signed: Neil Lino DO at 23:37 EDT Tel , Service support , Tibia/Fibula X-Ray 02/19/21 21:36 IMPRESSION: Soft tissue swelling without acute osseous finding Electronically Signed: Neil Lino DO at 23:38 EDT Tel , Service support , Chest X-Ray 02/19/21 23:00 IMPRESSION: Normal x-ray examination of the chest. Electronically Signed: Neil Lino DO at 23:36 EDT Tel , Service support , Discharge Plan Triage Chief Complaint: Weakness ED Provider: Abelardo De La Garza Dx/Rx/DC Orders Prescriptions: No Action NK RF: 0 Primary Care Provider: Care Physician,No Primary
--- NOTE | 2021-02-19 21:28 | RAD_ITS ---
STUDY: X-RAY - LEFT TIBIA AND FIBULA REASON FOR EXAM: Male, 55 years old. swelling TECHNIQUE: 3 view(s) of the tibia and fibula were obtained. COMPARISON: None. FINDINGS: Normal visualized tibia. Normal visualized fibula. Diffuse soft tissue swelling RAD/Tibia & Fibula 2 Views IMPRESSION: Soft tissue swelling without acute osseous finding Electronically Signed: Neil Lino DO at 23:38 EDT Tel , Service support ,
--- NOTE | 2021-02-19 21:28 | RAD_ITS ---
STUDY: X-RAY - LEFT FOOT CLINICAL: Male, 55 years old. swelling TECHNIQUE: 30 view(s) of the foot. COMPARISON: None. FINDINGS: Normal talus, calcaneus, and tarsal bones. Normal visualized subtalar, talonavicular, calcaneocuboid, tarsal and tarsometatarsal articulations. Normal metatarsi. Normal metatarsophalangeal joint of the great toe. Normal tibial and fibular sesamoid bones. Normal interphalangeal joint of the great toe. Normal phalanges of the great toe. Normal second through fifth metatarsophalangeal joints. Normal interphalangeal joints and phalanges of the lesser toes. Diffuse soft tissue swelling RAD/Foot min 3 Views IMPRESSION: No acute osseous findings. Diffuse soft tissue swelling Electronically Signed: Neil Lino DO at 23:37 EDT Tel , Service support ,
[2021-02-19] MEDS: 0.9% Normal Saline 1,000 ML 999 ML IV ×3 (21:30→23:41)
--- NOTE | 2021-02-19 21:31 | US_ITS ---
STUDY: VENOUS DOPPLER ULTRASOUND - BILATERAL LOWER EXTREMITIES REASON FOR EXAM: Male, 55 years old. BILAT LEG SWELLING, HX CELLULITIS/ MAGGOTS/ OPEN SORES TECHNIQUE: Ultrasound evaluation of the deep vein system to include maier-scale imaging and compression was performed. Maier-scale imaging and Doppler sonographic evaluation, including duplex spectral analysis and qualitative color flow sonography, was performed. COMPARISON: None. FINDINGS: RIGHT LEG Common Femoral Vein: Normal compression, spontaneity and augmentation. Normal color Doppler. Common Femoral Vein/Greater Saphenous Junction: Normal compression, spontaneity and augmentation. Normal color Doppler. Deep Femoral Vein: Normal compression, spontaneity and augmentation. Normal color Doppler. Femoral Proximal: Normal compression, spontaneity and augmentation. Normal color Doppler. Femoral Middle: Normal compression, spontaneity and augmentation. Normal color Doppler. Femoral Distal: Normal compression, spontaneity and augmentation. Normal color Doppler. Popliteal Vein: Normal compression, spontaneity and augmentation. Normal color Doppler. Posterior Tibial Vein: Normal compression, spontaneity and augmentation. Normal color Doppler. Peroneal Vein: Normal compression, spontaneity and augmentation. Normal color Doppler. LEFT LEG Common Femoral Vein: Normal compression, spontaneity and augmentation. Normal color Doppler. Common Femoral Vein/Greater Saphenous Junction: Normal compression, spontaneity and augmentation. Normal color Doppler. Deep Femoral Vein: Normal compression, spontaneity and augmentation. Normal color Doppler. Femoral Proximal: Normal compression, spontaneity and augmentation. Normal color Doppler. Femoral Middle: Normal compression, spontaneity and augmentation. Normal color Doppler. Femoral Distal: Normal compression, spontaneity and augmentation. Normal color Doppler. Popliteal Vein: Normal compression, spontaneity and augmentation. Normal color Doppler. Posterior Tibial Vein: Normal compression, spontaneity and augmentation. Normal color Doppler. Peroneal Vein: Normal compression, spontaneity and augmentation. Normal color Doppler. Limited exam. Bilateral cellulitis with purulent drainage. Limited evaluation of the catheter. There appears to be a superficial thrombosed vessel in the right gastroc US/Venous Duplex Imag/Dagoberto Extrem IMPRESSION: No evidence of DVT bilaterally however, limited exam for reasons above. There appears to be thrombosis of a right gastroc superficial vessel Electronically Signed: Neil Lino DO at 23:20 EDT Tel , Service support ,
[2021-02-19 21:32] LABS: Absolute Lymphocyte Count 0.53 X10^3/uL (0.83-4.51); Absolute Neutrophil Count 9.3 X10^3/uL (2.0-7.7); Basophil# 0.05 X10^3/uL; Basophil% 0.4 % (0-1); Hematocrit 38.6 % (40-54); Hemoglobin 12.8 g/dL (13.0-16.5); Lymphocyte # 0.53 X10^3/ul (0.83-4.51); Lymphocyte % 4.8 % (19-41); Mean Corp Hgb Conc 33.2 g/dL (32-36); Mean Corpuscular Hgb 34.9 pg (27.0-32.0); Mean Corpuscular Volume 105.2 fL (80-94); Mean Platelet Vol. 9.8 fl (6.2-12.0); Monocyte# 1.22 X10^3/uL; NRBC Flagged by Analyzer 0 % (0-5); Neutrophil # 9.28 X10^3/uL (2.7-7.7); Neutrophil % 83.3 % (47-70); POSITIVE DIFFERENTIAL YES; Platelet Count 301 K/mm3 (150-450); RBC Distribution Width CV 15.2 % (11.6-14.6); RBC Distribution Width SD 58.9 fl (35.1-43.9); Red Blood Count 3.67 M/mm3 (4.6-6.2); White Blood Count 11.1 K/mm3 (4.4-11.0)
--- NOTE | 2021-02-19 21:36 | RAD_ITS ---
STUDY: X-RAY - RIGHT TIBIA AND FIBULA REASON FOR EXAM: Male, 55 years old. SWELLING TECHNIQUE: 3 view(s) of the tibia and fibula were obtained. COMPARISON: None. FINDINGS: Normal visualized tibia. Normal visualized fibula. Diffuse subcutaneous soft tissue swelling RAD/Tibia & Fibula 2 Views IMPRESSION: Soft tissue swelling without acute osseous finding Electronically Signed: Neil Lino DO at 23:38 EDT Tel , Service support ,
--- NOTE | 2021-02-19 21:36 | RAD_ITS ---
STUDY: X-RAY - RIGHT FOOT CLINICAL: Male, 55 years old. SWELLING TECHNIQUE: 3 view(s) of the foot. COMPARISON: None. FINDINGS: Normal talus, calcaneus, and tarsal bones. Normal visualized subtalar, talonavicular, calcaneocuboid, tarsal and tarsometatarsal articulations. Normal metatarsi. Normal metatarsophalangeal joint of the great toe. Normal tibial and fibular sesamoid bones. Normal interphalangeal joint of the great toe. Normal phalanges of the great toe. Normal second through fifth metatarsophalangeal joints. Normal interphalangeal joints and phalanges of the lesser toes. Diffuse soft tissue swelling RAD/Foot min 3 Views IMPRESSION: Diffuse soft tissue swelling without acute osseous finding Electronically Signed: Neil Lino DO at 23:37 EDT Tel , Service support ,
[2021-02-19 21:37] LABS: International Normalized Ratio 1.1; Prothrombin Time (Protime)PT. 13.7 SECONDS (11.7-14.9)
[2021-02-19 21:38] LABS: Partial Thromboplast Time 34.9 Seconds (24.1-36.2)
[2021-02-19 21:42] LABS: Differential Indicated SCAN CRITERIA MET
[2021-02-19 21:46] LABS: ALB/GLOB Ratio 0.5 RATIO (0.9-2.4); AST(SGOT) 77 U/L (15-37); Alanine Aminotransfer ALT/SGPT 36 U/L (16-61); Albumin, Serum 2.3 g/dL (3.2-5.0); Alkaline Phosphatase 112 U/L (45-117); Anion Gap 16 (5-15); BUN 10 mg/dL (7-18); BUN/Creat Ratio 10.8 RATIO (10-20); Calcium,Total 8.3 mg/dL (8.5-10.1); Chloride 103 mmol/L (98-107); Creatinine, Serum 0.93 mg/dL (0.70-1.30); EST Glomerular Filtration Rate 90 mL/min (>60); Est Glom Filt Rate - Afr Amer 109 mL/min (>60); Estimated Creatinine Clearance 88.87 ml/min; Globulin 4.9 g/dL (2.2-4.2); Glucose 126 mg/dL (74-106); Potassium 3.5 mmol/L (3.5-5.1); Protein, Total 7.2 g/dL (6.4-8.2); Sodium Level 140 mmol/L (136-145); Troponin-I HS 24 pg/mL (3.0-78.0)
[2021-02-19 21:50] LABS: Lactic Acid 7.8 mmol/L (0.4-1.9)
[2021-02-19] MEDS: Labetalol (Prefilled) 20 MG/4 ML IV (22:01)
[2021-02-19] MEDS: metroNIDAZOLE 500 MG/100 ML BAG 100 MG IV (22:08)
[2021-02-19] MEDS: Acetaminophen 500 MG Tablet 1000 MG PO (22:21)
[2021-02-19 22:41] LABS: Differential Comment SCANNED
[2021-02-19 22:49] LABS: Color, Urine Yellow (Yellow); Glucose, Dipstick Normal (Normal); Ketone-Dipstick Negative (Negative); Leukocyte Esterase-Dipstick Negative /ul (Negative); Mucous, Urine 0 SEEN /hpf (<or=2+); Nitrite-Dipstick Negative (Negative); Occult Blood-Urine 25 /ul (Negative); Protein-Dipstick 15 mg/dl (Negative); Red Blood Cells-Urine 0 SEEN /hpf (0-5); Urine Bilirubin Dipstick Negative (Negative); Urine Clarity Clear (Clear); Urine Urobilinogen Normal (Normal)
[2021-02-19 22:58] LABS: Hyaline Cast 10-25 SEEN /lpf (0-5)
[2021-02-19 22:59] LABS: Fine Granular Cast- Urine 0-5 SEEN /lpf (0-5)
[2021-02-19 23:00] LABS: Bacteria RARE /hpf (None Seen); Squamous Epithelial Cells - UA 0-5 SEEN /hpf (0-5); White Blood Cells 0-5 SEEN /hpf (0-5)
--- NOTE | 2021-02-19 23:00 | RAD_ITS ---
STUDY: X-RAY CHEST REASON FOR EXAM: Male, 55 years old. tachycardia TECHNIQUE: Single AP portable view of the chest. COMPARISON: None. FINDINGS: The lungs are clear and expanded. There is no demonstrated pleural abnormality. Normal size heart. Normal mediastinum and mateo. Normal visualized pulmonary arteries. Normal visualized aortic arch and descending thoracic aorta. Normal visualized thoracic spine. Normal visualized ribs, clavicles, and shoulders. There is no demonstrated abnormality of the visualized soft tissue structures of the upper abdomen. RAD/Chest 1 View (Portable) IMPRESSION: Normal x-ray examination of the chest. Electronically Signed: Neil Lino DO at 23:36 EDT Tel , Service support ,
[2021-02-20] VITALS (24 sets, daily range): BP systolic 140–202; BP diastolic 98–133; PULSE 89–116; RESP 18–29; TEMP 36.3–37.3; O2SAT 89–99; BMI 34.2
[2021-02-20] MEDS: Labetalol (Prefilled) 20 MG/4 ML IV (00:32)
--- NOTE | 2021-02-20 00:42 | HP.PCM.HOS_ITS ---
HPI - General General Date of Admission: 02/20/21 Date of Service: 02/20/21 Chief Complaint: Bilateral ankle pain HPI Narrative DAYAMI BHAT, is a 55 M with a significant history of venous stasis dermatitis; hypertension; HTN and failure to thrive who presents to the emergency department with bilateral ankle pain that began about a month ago. He described the pain as throbbing. The pain is nonradiating. There is no ameliorating or aggravating factors to the pain. Initially the pain was tolerable but now the pain is worse. Emergency Department doctor reports that upon examination maggots was found in patient's legs so nurses cleansed patient legs. Reportedly patient lives in a deplorable condition at home. In the past, patient was advised to follow-up with wound care but he did not. [facility] Medical History (Updated 02/20/21 @ 02:[address] 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 Home Medications NK 02/19/21 [History Last Taken Unknown] Allergy/AdvReac Type Severity Reaction Status Date / Time No Known Allergies Allergy Verified 02/19/21 20:07 Family History Father Cancer Mother Cancer Brother Hypertension Surgical History S/P tonsillectomy Social History (Updated 02/20/21 @ 01:47 by Adrianne Rivera) household members: none and other details: alone housing: apartment current occupational status: unemployed Smoking Status: Current every day smoker tobacco type: cigarettes alcohol intake: current substance use type: does not use ROS ROS Narrative Constitutional: Denies fever, chills, fatigue, anorexia and change in weight Eyes: Denies blurry vision, change in eye color, change in vision, discharge from eye(s), double vision, erythema, eye pain, loss of vision or other HEENT: Denies abnormal hearing, dysphagia, ear pain, epistaxis, headache(s), hearing loss, nasal congestion, nasal discharge, post nasal drip, sinus pressure, sore throat or other Cardiovascular: Denies chest pain or palpitations. Denies dyspnea on exertion, orthopnea and paroxysmal nocturnal dyspnea Respiratory/Chest: Denies cough, excessive phlegm production, shortness of breath with exertion and wheezing Gastrointestinal: Denies abdominal pain, coffee ground emesis, constipation, diarrhea, dyspepsia, hematemesis, hematochezia, loose stools, melena, nausea, vomiting or other Genitourinary: Denies burning urination, difficulty urinating, dysuria, hematur ia, nocturia, urinary frequency, urinary hesitancy, urinary incontinence, urinary urgency or other Musculoskeletal: Reports ankle pain; erythema of ankles; swollen ankles. Neurologic: Denies abnormal gait, abnormal speech, confusion, disequilibrium, dizziness, focal weakness, headache(s), numbness, paresthesias, seizure-like activity, seizures, syncope, tingling, tremor(s) or other Psychiatric: Denies anxiety, depression, homicidal ideation, suicidal ideation or other Endocrinology: Denies change in body appearance, cold intolerance, excessive sweating, heat intolerance, polydipsia, polyuria or other Hematologic/Lymphatic: Denies anemia, easy bleeding, easy bruising, lymphadenopathy or other Integumentary: Scaly rashes and blisters on bilateral legs and feet. Allergic/Immunologic: Denies rhinitis, hives, eczema, asthma or other Vital Signs Vital Signs Vital Signs: 02/19/21 20:07 02/19/21 20:11 02/19/21 20:12 Temperature 99.1 F Temperature Source Oral Pulse Rate 133 H 133 H Respiratory Rate 33 H Respiratory Effort Normal Non-Labored Blood Pressure 177/108 H Blood Pressure Mean 131 Pulse Ox 93 Oxygen Delivery Method Nasal Cannula 02/19/21 21:54 02/19/21 22:11 02/19/21 22:13 Temperature 99.2 F H 100.6 F H Temperature Source Temporal Temporal Pulse Rate 136 H 108 H Respiratory Rate 27 H 17 Respiratory Effort Blood Pressure 223/133 H 217/144 H 184/117 H Blood Pressure Mean 163 168 139 Pulse Ox 95 Oxygen Delivery Method Room Air 02/19/21 22:20 02/19/21 23:06 02/19/21 23:43 Temperature 100.6 F H 99.1 F Temperature Source Temporal Oral Pulse Rate 113 H Respiratory Rate 26 H Respiratory Effort Blood Pressure 157/138 H Blood Pressure Mean 144 Pulse Ox 93 Oxygen Delivery Method Room Air 02/20/21 00:03 Temperature 99.1 F Temperature Source Oral Pulse Rate 110 H Respiratory Rate 20 H Respiratory Effort Blood Pressure 176/115 H Blood Pressure Mean 135 Pulse Ox 93 Oxygen Delivery Method Room Air Weight Weight: 105.8 kg Body Mass Index (BMI) 35.4 Physical Exam Narrative Physical exam: General: Well-nourished, well-developed. Head: Normocephalic, atraumatic, no tenderness Eyes: PERRLA, EOMI ENT, no trauma, moist mucous membranes, no rhinorrhea Neck: Nontender, full range of motion, no spinal tenderness, deformities, step- off CVS: Tachycardia. S1-S2 present. No murmur, gallop or rub. Respiratory : Tachypnea; diminished., chest wall nontender, no wheezing Abdomen: Soft, nontender, nondistended, normal bowel sounds, no masses : Deferred Back: Nontender, no CVA tenderness, no midline spinal tenderness, deformities, step-offs Extremities: Nontender full range of motion, no trauma Skin: Bilateral legs and feet with swelling; blisters and erythema. Neuro: Alert, oriented, cranial nerves II through XII grossly intact. Psychiatry: Normal mood. Normal affect. Not depressed. Not anxious. Results Lab / Micro Data Result Diagrams: 02/19/21 20:30 02/19/21 20:30 Labs: Laboratory Results - last 24 hr 02/19/21 20:30: WBC 11.1 H, RBC 3.67 L, Hgb 12.8 L, Hct 38.6 L, MCV 105.2 H, MCH 34.9 H, MCHC 33.2, RDW Std Deviation 58.9 H, RDW Coeff of Flor 15.2 H, Plt Count 301, MPV 9.8, Immature Gran % (Auto) 0.500, Neut % (Auto) 83.3 H, Lymph % (Auto) 4.8 L, [place] % (Auto) 11.0 H, Eos % (Auto) 0.0, Baso % (Auto) 0.4, Absolute Neuts (auto) 9.3 H, Absolute Lymphs (auto) 0.53 L, Nucleated RBC % 0, Differential Comment SCANNED 02/19/21 20:30: PT 13.7, INR 1.1, APTT 34.9 02/19/21 20:30: Sodium 140, Potassium 3.5, Chloride 103, Carbon Dioxide 21.0, Anion Gap 16 H, BUN 10, Creatinine 0.93, Estim Creat Clear Calc 88.87, Est GFR (MDRD) Af Amer 109, Est GFR (MDRD) Non-Af 90, BUN/Creatinine Ratio 10.8, Glucose 126 H, Calcium 8.3 L, Total Bilirubin 0.40, AST 77 H, ALT 36, Alkaline Phosph atase 112, Troponin I High Sens 24, Total Protein 7.2, Albumin 2.3 L, Globulin 4.9 H, Albumin/Globulin Ratio 0.5 L 02/19/21 20:30: Lactic Acid 7.8 H* 02/19/21 22:05: Urine Color Yellow, Urine Clarity Clear, Urine pH 5.0, Ur Specific [place] 1.010, Urine Protein 15 H, Urine Glucose (UA) Normal, Urine Ketones Negative, Urine Occult Blood 25 H, Urine Nitrite Negative, Urine Bilirubin Negative, Urine Urobilinogen Normal, Ur Leukocyte Esterase Negative, Urine RBC 0 SEEN, Urine WBC 0-5 SEEN, Ur Squamous Epith Cells 0-5 SEEN, Urine Bacteria RARE, Hyaline Casts 10-25 SEEN, Fine Granular Casts 0-5 SEEN, Urine Mucus 0 SEEN Radiology Impression Foot X-Ray 02/19/21 21:28 IMPRESSION: No acute osseous findings. Diffuse soft tissue swelling Electronically Signed: Neil Lino DO at 23:37 EDT Tel , Service support , Tibia/Fibula X-Ray 02/19/21 21:28 IMPRESSION: Soft tissue swelling without acute osseous finding Electronically Signed: Neil Lino DO at 23:38 EDT Tel , Service support , Venous Duplex 02/19/21 21:31 IMPRESSION: No evidence of DVT bilaterally however, limited exam for reasons above. There appears to be thrombosis of a right gastroc superficial vessel Electronically Signed: Neil Lino DO at 23:20 EDT Tel , Service support , Foot X-Ray 02/19/21 21:36 IMPRESSION: Diffuse soft tissue swelling without acute osseous finding Electronically Signed: Neil Lino DO at 23:37 EDT Tel , Service support , Tibia/Fibula X-Ray 02/19/21 21:36 IMPRESSION: Soft tissue swelling without acute osseous finding Electronically Signed: Neil Lino DO at 23:38 EDT Tel , Service support , Chest X-Ray 02/19/21 23:00 IMPRESSION: Normal x-ray examination of the chest. Electronically Signed: Neil Lino DO at 23:36 EDT Tel , Service support , Assessment & Plan Assessment/Plan (1) Septic shock: (2) Cellulitis: QUALIFIERS: Laterality: unspecified laterality Site of cellulitis: extremity Site of cellulitis of extremity: lower extremity Qualified Code(s): L03.119 - Cellulitis of unspecified part of limb (3) Failure to thrive: (4) Hypertension, uncontrolled: PLAN: Septic shock secondary to bilateral leg cellulitis SIRS criteria: Respiratory rate of more than 20; heart rate of more than 90. Tmax 100.6F. qSOFA: 1 (respiratory rate of more than 22). Lactic acid of 7.8; trend. Blood culture obtained in the emergency department; follow. Wound culture obtained at emergency department; follow. Received normal saline 30 mL/kg bolus per septic shock protocol. Foot x-rays; tibia/fibula x-ray with soft tissue swelling without acute osseous findings. Chest x-ray image was independently interpreted and agree radiologist interpre tation as above. Likely venous stasis dermatitis degenerating into cellulitis Ultrasound with a possible right gastrocnemius superficial vessel. Received vancomycin; Flagyl and gentamicin the emergency department. Vancomycin and cefepime ordered. Admit to intensive care unit and consult electrocardiograph technician. Venostasis dermatitis Adaptic dressing started emergency department and continued. Bilateral Thomas wraps to legs. Wound care consult Uncontrolled hypertension On presentation blood pressure was not within goal with systolic blood pressure in the 200s. Reportedly he was supposed to be on home antihypertensive medication that is not taking. Received labetalol IV at the emergency department.. Labetalol continued. Failure to thrive Patient unable to take care of himself in deplorable home condition. Case management consult. DVT prophylaxis Subcutaneous Lovenox ordered. Charges/Coding Visit Charges Inpatient E&M: 50169 Init Hosp L3
[2021-02-20 01:29] LABS: Reflex Lactate? Y
[2021-02-20 02:30] LABS: Lactic Acid 2.2 mmol/L (0.4-1.9)
--- NOTE | 2021-02-20 03:40 | PCM.RX.CS ---
Consult Pharmacy has been consulted to manage selected antiobiotic: Vancomycin Type of Consult: New start Labs: Sodium 140 mmol/L (136-145) 02/19/21 20:30 Potassium 3.5 mmol/L (3.5-5.1) 02/19/21 20:30 Chloride 103 mmol/L (98-107) 02/19/21 20:30 Carbon Dioxide 21.0 mmol/L (21.0-32.0) 02/19/21 20:30 Anion Gap 16 (5-15) H 02/19/21 20:30 BUN 10 mg/dL (7-18) 02/19/21 20:30 Creatinine 0.93 mg/dL (0.70-1.30) 02/19/21 20:30 Est GFR (MDRD) Af Amer 109 mL/min (>60) 02/19/21 20:30 Est GFR (MDRD) Non-Af 90 mL/min (>60) 02/19/21 20:30 BUN/Creatinine Ratio 10.8 RATIO (10-20) 02/19/21 20:30 Glucose 126 mg/dL (74-106) H 02/19/21 20:30 Weight used for dosin kg Estimated Creatinine Clearance: 106 Goal Trough: 15-20 mcg/mL Pharmacy Plan for Drug Dosing: Pharmacy Service will continue to monitor and adjust dosing as required. Medications Vancomycin HCl 1,250 mg/ (Sodium Chloride) 275 mls @ 167 mls/hr IV Q8H AYAZ Discontinued Medications Vancomycin HCl 1,500 mg/ (Sodium Chloride) 530 mls @ 250 mls/hr IV X1 ONE Stop: 02/19/21 23:27 Last Admin: 02/20/21 00:31 Dose: Infused Documented by: Follow-Up Labs: Trough Vancomycin Labs to be done on [date and time ordered]: 02/20 @3166
--- NOTE | 2021-02-20 03:49 | SEPSISNOTE ---
Sepsis Note Physical Exam/Vitals Objective: Foot X-Ray 02/19/21 21:28 IMPRESSION: No acute osseous findings. Diffuse soft tissue swelling Electronically Signed: Neil Lino at 23:37 EDT Tel , Service support , Tibia/Fibula X-Ray 02/19/21 21:28 IMPRESSION: Soft tissue swelling without acute osseous finding Electronically Signed: Neil FlakoDO ren at 23:38 EDT Tel , Service support , Venous Duplex 02/19/21 21:31 IMPRESSION: No evidence of DVT bilaterally however, limited exam for reasons above. There appears to be thrombosis of a right gastroc superficial vessel Electronically Signed: Neil Lino DO at 23:20 EDT Tel , Service support , Foot X-Ray 02/19/21 21:36 IMPRESSION: Diffuse soft tissue swelling without acute osseous finding Electronically Signed: Neil ArriolaDO ren at 23:37 EDT Tel , Service support , Tibia/Fibula X-Ray 02/19/21 21:36 IMPRESSION: Soft tissue swelling without acute osseous finding Electronically Signed: Neil Lino DO at 23:38 EDT Tel , Service support , Chest X-Ray 02/19/21 23:00 IMPRESSION: Normal x-ray examination of the chest. Electronically Signed: Neil ArriolaDO ren at 23:36 EDT Tel , Service support , Temp Pulse Resp BP Pulse Ox 98.4 F 104 H 20 H 156/101 H 95 02/20/21 01:16 02/20/21 02:00 02/20/21 01:16 02/20/21 01:16 02/20/21 01:16 02/20/21 02/19/21 02/19/21 01:48 22:05 20:30 WBC RBC Hgb Hct MCV MCH MCHC RDW Std Deviation RDW Coeff of Flor Plt Count MPV Immature Gran % (Auto) Neut % (Auto) Lymph % (Auto) [place] % (Auto) Eos % (Auto) Baso % (Auto) Absolute Neuts (auto) Absolute Lymphs (auto) Nucleated RBC % Differential Comment PT INR APTT Sodium Potassium Chloride Carbon Dioxide Anion Gap BUN Creatinine Estim Creat Clear Calc Est GFR (MDRD) Af Amer Est GFR (MDRD) Non-Af BUN/Creatinine Ratio Glucose Lactic Acid 2.2 H* 7.8 H* Calcium Total Bilirubin AST ALT Alkaline Phosphatase Troponin I High Sens Total Protein Albumin Globulin Albumin/Globulin Ratio Urine Color Yellow Urine Clarity Clear Urine pH 5.0 Ur Specific [place] 1.010 Urine Protein 15 H Urine Glucose (UA) Normal Urine Ketones Negative Urine Occult Blood 25 H Urine Nitrite Negative Urine Bilirubin Negative Urine Urobilinogen Normal Ur Leukocyte Esterase Negative Urine RBC 0 SEEN Urine WBC 0-5 SEEN Ur Squamous Epith Cells 0-5 SEEN Urine Bacteria RARE Hyaline Casts 10-25 SEEN Fine Granular Casts 0-5 SEEN Urine Mucus 0 SEEN 02/19/21 02/19/21 02/19/21 20:30 20:30 20:30 WBC 11.1 H RBC 3.67 L Hgb 12.8 L Hct 38.6 L MCV 105.2 H MCH 34.9 H MCHC 33.2 RDW Std Deviation 58.9 H RDW Coeff of Flor 15.2 H Plt Count 301 MPV 9.8 Immature Gran % (Auto) 0.500 Neut % (Auto) 83.3 H Lymph % (Auto) 4.8 L [place] % (Auto) 11.0 H Eos % (Auto) 0.0 Baso % (Auto) 0.4 Absolute Neuts (auto) 9.3 H Absolute Lymphs (auto) 0.53 L Nucleated RBC % 0 Differential Comment SCANNED PT 13.7 INR 1.1 APTT 34.9 Sodium 140 Potassium 3.5 Chloride 103 Carbon Dioxide 21.0 Anion Gap 16 H BUN 10 Creatinine 0.93 Estim Creat Clear Calc 88.87 Est GFR (MDRD) Af Amer 109 Est GFR (MDRD) Non-Af 90 BUN/Creatinine Ratio 10.8 Glucose 126 H Lactic Acid Calcium 8.3 L Total Bilirubin 0.40 AST 77 H ALT 36 Alkaline Phosphatase 112 Troponin I High Sens 24 Total Protein 7.2 Albumin 2.3 L Globulin 4.9 H Albumin/Globulin Ratio 0.5 L Urine Color Urine Clarity Urine pH Ur Specific [place] Urine Protein Urine Glucose (UA) Urine Ketones Urine Occult Blood Urine Nitrite Urine Bilirubin Urine Urobilinogen Ur Leukocyte Esterase Urine RBC Urine WBC Ur Squamous Epith Cells Urine Bacteria Hyaline Casts Fine Granular Casts Urine Mucus Attestation Sepsis Attestation: Sepsis re-evaluation was performed
[2021-02-20 05:24] LABS: Absolute Neutrophil Count 6.9 X10^3/uL (2.0-7.7); Basophil# 0.05 X10^3/uL; Basophil% 0.6 % (0-1); Eosinophil# 0.01 X10^3/uL; Eosinophils% 0.1 % (0-5); Hematocrit 34.9 % (40-54); Hemoglobin 11.8 g/dL (13.0-16.5); Mean Corp Hgb Conc 33.8 g/dL (32-36); Mean Corpuscular Hgb 35.5 pg (27.0-32.0); Mean Corpuscular Volume 105.1 fL (80-94); Mean Platelet Vol. 9.6 fl (6.2-12.0); Monocyte# 1.05 X10^3/uL; Monocyte% 12.1 % (0-10); NRBC Flagged by Analyzer 0 % (0-5); Neutrophil # 6.87 X10^3/uL (2.7-7.7); Neutrophil % 78.9 % (47-70); Platelet Count 238 K/mm3 (150-450); RBC Distribution Width CV 15.3 % (11.6-14.6); RBC Distribution Width SD 59.7 fl (35.1-43.9); Red Blood Count 3.32 M/mm3 (4.6-6.2); White Blood Count 8.7 K/mm3 (4.4-11.0)
[2021-02-20 05:37] LABS: Anion Gap 7 (5-15); BUN 8 mg/dL (7-18); BUN/Creat Ratio 10.7 RATIO (10-20); Calcium,Total 7.6 mg/dL (8.5-10.1); Chloride 105 mmol/L (98-107); Creatinine, Serum 0.75 mg/dL (0.70-1.30); EST Glomerular Filtration Rate 115 mL/min (>60); Est Glom Filt Rate - Afr Amer 140 mL/min (>60); Glucose 105 mg/dL (74-106); Potassium 3.4 mmol/L (3.5-5.1); Sodium Level 141 mmol/L (136-145)
[2021-02-20] MEDS: Potassium Chloride Oral Tablet 20 MEQ 40 MEQ PO ×2 (06:45→21:19)
[2021-02-20] MEDS: Carvedilol 12.5 MG Tablet PO ×2 (06:45→21:20)
--- NOTE | 2021-02-20 07:28 | PCS.PANDOC ---
PANDEMIC DOCUMENTATION INITIATED: Date: 12/24/2020 Time: 190
--- NOTE | 2021-02-20 08:21 | CON.PCM.CC_ITS ---
Assessment & Plan Assessment/Plan (1) Septic shock: (2) Cellulitis: QUALIFIERS: Site of cellulitis: extremity Site of cellulitis of extremity: lower extremity Laterality: unspecified laterality Qualified Code(s): L03.119 - Cellulitis of unspecified part of limb (3) Hypertension, uncontrolled: PLAN: RECOMMENDATIONS: 1. Continue empiric antibiotics 2. Initiate Coreg therapy 3. Wound nurse to evaluate lower extremities 4. Okay to transfer from the intensive care unit 5. Hemodynamically stable on room air. Will sign off from a critical care perspective IMPRESSIONS: 1. Cellulitis bilateral lower extremities Patient does not appear to have endorgan damage to constitute septic shock from the available data. Patient did have an elevated lactate, but this has normalized. Patient is hypertensive and did receive fluid resuscitation. Agree with broad-spectrum antibiotics. Will need wound nurse to evaluate lower extremities. Okay to leave the intensive care unit from my perspective. Given that he is hemodynamically stable on room air, will sign off from a critical care perspective. 2. Hypertensive urgency Patient with severely elevated blood pressures. Clinical suspicion is patient has a history of hypertension has not been compliant with medications. Will start with Coreg, but BRUNA inhibitor can be added in the future. 3. Obesity/poor insight/poor primary care follow-up Complicates care, management, recovery and prognosis. It does not appear patient is following up as an outpatient and has little insight into the severity of his lower extremities. May need to consult social work for Adult Protective Services. HPI Consult Data Date of Consult: 02/20/21 HPI Narrative HPI Narrative: DAYAMI BHAT is a 55 M, with past medical history listed bel ow, who presents to [facility] on 02/19/2021 secondary to being found on the ground. Patient reportedly was previously admitted at [facility] for similar type illness, but was noted to have foul-smelling purulent drainage of bilateral lower legs. Patient admits to having decreased mobility and had attempted to keep his legs clean, but was unaware of the last time he was able to take off his boots. Patient had not reported any fever, but had been eating and drinking. Patient did report pain, but this did not keep him from ambulating. Patient had noted maggots 3 days prior to presentation. Patient had called EMS because he did not know how else to get to the hospital. In the ER, patient was febrile to 100.6 ?F. Patient was noted to be hypertensive at 177/108 with tachycardia at 133. Patient was initially on nasal cannula, but was able to be weaned to room air. Laboratory work-up showed a white blood cell count of 11.1, hemoglobin of 12.8 and platelets of 301. Coagulation studies were within normal limits. CMP was relatively unremarkable, along with UA. However, patient's lactate was elevated at 7.8, so he was given IV fluids and admitted to the intensive care unit under the sepsis protocol. Imaging studies of the lower extremities showed swelling with no obvious osteo. Patient did have to have his clothing removed with scissors. Patient states he feels subjectively improved since being admitted to the hospital. Patient denies any current chest pain, abdominal pain, nausea or vomiting. Patient states he does struggle to deal with his lower extremities. Patient reports his sensation is normal, but has been having pain with am bulation. Patient denies any trauma. Patient does not report a history of hypertension, but has been given lisinopril and metoprolol in the past. Review of systems otherwise negative from a constitutional, HEENT, respiratory, cardiovascular, GI, genitourinary, musculoskeletal, skin, neurologic, p sychiatric and hematologic system unless stated above. [facility] Medical History (Updated 02/20/21 @ 02:[address] 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 Home Medications NK 02/19/21 [History Last Taken Unknown] Allergy/AdvReac Type Severity Reaction Status Date / Time No Known Allergies Allergy Verified 02/19/21 20:07 Family History Father Cancer Mother Cancer Brother Hypertension Surgical History S/P tonsillectomy Social History (Updated 02/20/21 @ 01:47 by Adrianne Rivera) household members: none and other details: alone housing: apartment current occupational status: unemployed Smoking Status: Current every day smoker tobacco type: cigarettes alcohol intake: current substance use type: does not use ROS ROS Narrative See HPI Physical Exam Const alert and no apparent distress General Appearance: cooperative and comfortable HEENT Head and Scalp: atraumatic Eyes PERRL, EOMs intact bilaterally, conjunctivae normal and no scleral icterus Lymph Lymphatic: no lymphedema noted Chest inspection of chest normal Chest: symmetrical chest wall rise; Negative for crepitus Resp normal respiratory effort and normal air movement Effort and Inspection: able to speak in complete sentences Auscultation: clear to auscultation bilaterally; Negative for rales, rhonchi or wheezes Cardio regular rate, regular rhythm, S1 normal heart sound, S2 normal heart sound, no murmurs, no rub and no gallops Extremity normal capillary refill and no calf tenderness General Extremity: edema bilateral lower extremity, no tenderness to palpation of joints or extremities and other findings Other Details: Capillary refill time less than 3 seconds noted to digits ; Negative for clubbing or cyanosis Peripheral Pulses: Yes posterior tibial pulses present bilateral diminished and dorsalis pedis pulses present bilateral diminished Skin General Skin Exam: atrophy and dry skin; Negative for ecchymosis, pallor or dermatitis Rashes: no rashes Wounds: wounds noted Wound Narrative: Bilateral lower extremities wrapped at this time. Good capillary refill noted of the toes. Psych Appearance: appropriate Attitude: calm Lab / Micro Data Result Diagrams: 02/20/21 05:00 02/20/21 05:00 Labs: Laboratory Results - last 24 hr 02/19/21 20:30: WBC 11.1 H, RBC 3.67 L, Hgb 12.8 L, Hct 38.6 L, MCV 105.2 H, MCH 34.9 H, MCHC 33.2, RDW Std Deviation 58.9 H, RDW Coeff of Flor 15.2 H, Plt Count 301, MPV 9.8, Immature Gran % (Auto) 0.500, Neut % (Auto) 83.3 H, Lymph % (Auto) 4.8 L, Cavalier % (Auto) 11.0 H, Eos % (Auto) 0.0, Baso % (Auto) 0.4, Absolute Neuts (auto) 9.3 H, Absolute Lymphs (auto) 0.53 L, Nucleated RBC % 0, Differential Comment SCANNED 02/19/21 20:30: PT 13.7, INR 1.1, APTT 34.9 02/19/21 20:30: Sodium 140, Potassium 3.5, Chloride 103, Carbon Dioxide 21.0, Anion Gap 16 H, BUN 10, Creatinine 0.93, Estim Creat Clear Calc 88.87, Est GFR (MDRD) Af Amer 109, Est GFR (MDRD) Non-Af 90, BUN/Creatinine Ratio 10.8, Glucose 126 H, Calcium 8.3 L, Total Bilirubin 0.40, AST 77 H, ALT 36, Alkaline Phosphatase 112, Troponin I High Sens 24, Total Protein 7.2, Albumin 2.3 L, Globulin 4.9 H, Albumin/Globulin Ratio 0.5 L 02/19/21 20:30: Lactic Acid 7.8 H* 02/19/21 22:05: Urine Color Yellow, Urine Clarity Clear, Urine pH 5.0, Ur Specific Casper 1.010, Urine Protein 15 H, Urine Glucose (UA) Normal, Urine Ketones Negative, Urine Occult Blood 25 H, Urine Nitrite Negative, Urine Bilirubin Negative, Urine Urobilinogen Normal, Ur Leukocyte Esterase Negative, Urine RBC 0 SEEN, Urine WBC 0-5 SEEN, Ur Squamous Epith Cells 0-5 SEEN, Urine Bacteria RARE, Hyaline Casts 10-25 SEEN, Fine Granular Casts 0-5 SEEN, Urine Mucus 0 SEEN 02/20/21 01:48: Lactic Acid 2.2 H* 02/20/21 05:00: WBC 8.7, RBC 3.32 L, Hgb 11.8 L, Hct 34.9 L, MCV 105.1 H, MCH 35.5 H, MCHC 33.8, RDW Std Deviation 59.7 H, RDW Coeff of Flor 15.3 H, Plt Count 238, MPV 9.6, Immature Gran % (Auto) 0.300, Neut % (Auto) 78.9 H, Lymph % (Auto) 8.0 L, Cavalier % (Auto) 12.1 H, Eos % (Auto) 0.1, Baso % (Auto) 0.6, Absolute Neuts (auto) 6.9, Absolute Lymphs (auto) 0.70 L, Nucleated RBC % 0 02/20/21 05:00: Sodium 141, Potassium 3.4 L, Chloride 105, Carbon Dioxide 29.0, Anion Gap 7, BUN 8, Creatinine 0.75, Estim Creat Clear Calc 110.20, Est GFR (MDRD) Af Amer 140, Est GFR (MDRD) Non-Af 115, BUN/Creatinine Ratio 10.7, Glucose 105, Calcium 7.6 L Radiology Impression Foot X-Ray 02/19/21 21:28 IMPRESSION: No acute osseous findings. Diffuse soft tissue swelling Electronically Signed: Neil Lino at 23:37 EDT Tel , Service support , Tibia/Fibula X-Ray 02/19/21 21:28 IMPRESSION: Soft tissue swelling without acute osseous finding Electronically Signed: Neil Lino at 23:38 EDT Tel , Service support , Venous Duplex 02/19/21 21:31 IMPRESSION: No evidence of DVT bilaterally however, limited exam for reasons above. There appears to be thrombosis of a right gastroc superficial vessel Electronically Signed: Neil FlakoDO ren at 23:20 EDT Tel , Service support , Foot X-Ray 02/19/21 21:36 IMPRESSION: Diffuse soft tissue swelling without acute osseous finding Electronically Signed: Neil LinoDO at 23:37 EDT Tel , Service support , Tibia/Fibula X-Ray 02/19/21 21:36 IMPRESSION: Soft tissue swelling without acute osseous finding Electronically Signed: Neil ArriolaDO ren at 23:38 EDT Tel , Service support , Chest X-Ray 02/19/21 23:00 IMPRESSION: Normal x-ray examination of the chest. Electronically Signed: Neil Arriolaren at 23:36 EDT Tel , Service support , Charges/Coding Visit Charges Inpatient E&M: 65826 Init Hosp L3
--- NOTE | 2021-02-20 09:44 | WOUNDNOTE ---
wound photo: left lower leg
--- NOTE | 2021-02-20 09:44 | WOUNDNOTE ---
wound photo: right lower leg
--- NOTE | 2021-02-20 09:46 | WOUNDNOTE ---
wound photo: right posterolateral lower leg
[2021-02-20] MEDS: Enoxaparin 40 MG/0.4 ML Syringe SC (10:05)
[2021-02-20] MEDS: 0.9% Saline Lock 10 ML Syringe IV (10:06)
[2021-02-20] MEDS: Labetalol (Prefilled) 20 MG/4 ML 10 MG IV (10:06)
--- NOTE | 2021-02-20 10:47 | CASEMGMT ---
SW met w/pt in room, reviewed prior level of function and anticipated discharge plan. PCP: None Insurance: None Pharmacy: [facility] LW/POA: Has not completed, states cannot think of anybody to put down LNOK: Pt has 2 brothers, he does not have phone numbers here as he lost his cell phone somewhere between home and the hospital Prior living arrangements/level of function: Pt lives home alone, states is fully independent with all ADLs. Pt has transportation. DME/SNF/HHC: None Mental Health: Pt denies any formal diagnoses of mental health. Pt did speak w/SW last time was here and was given mental health referrals. Pt states did not follow up, and does not feel he needs mental health services at this time. Substance use/abuse: Pt denies any history of this. SW met w/pt in room, pt anticipates returning home at discharge. Pt does not have insurance, SW gave pt resources including information on Shay[facility] Nelson, [employer], prescription assist programs, [facility] assist, 211, counseling agencies if needed, and [facility] Resources. Pt states access to food is not an issue, nor is transportation. SW also gave pt a Medicaid application and care assurance application. Pt states is not up for completing these at this time. Pt also states lost cell phone, SW called both the ED and Fire Department to see if it was found, they are to call SW back should they find it. Plan: Home, pt may need assist with medications at discharge. ANN MARIE Mendez
[2021-02-20] MEDS: Lisinopril 20 MG Tablet PO (10:52)
--- NOTE | 2021-02-20 13:52 | CHAPLAIN ---
Type of Pastoral Visit _x__ Initial Visit ___ Follow-up Visit ___ On-call Visit ___ General Patient Visit ___ Spiritual Assessment ___ Family Conference ___ Bereavement ___ Rapid Response ___ Code Blue ___ Other (describe below) Pastoral Care Referral From ___ Patient ___ Family _x__ Nurse ___ Physician ___ Drum Filler ___ Plunger Scoop Operator ___ Other (describe below) Sacrament/Intervention _x__ Active listening ___ Anointing ___ Pentecostal ___ Bereavement ___ Communion ___ Blessing exploration ___ ___ Life review ___ Prayer ___ Reconciliation ___ Sacrament of Sick ___ Supportive presence ___ Wedding ___ Other (describe below) Pastoral Comments introduced self and role at hospital; offer of support given; sat at bedside for short casual conversation
--- NOTE | 2021-02-20 19:49 | PCM.HOSP.N ---
Hospitalist Note Patient was seen and examined this morning in ICU, he does not have evidence of septic shock, I do not think that this was the patient's admission diagnosis, rather I think he does have cellulitis of the lower extremities. Patient is also hypertensive at this time, he is noncompliant with his medications at home and he told me today that he does not have a primary care physician which I asked him to establish the last time he was in the hospital. Patient will be moved out to PCU today, he is currently stable for transfer.
[2021-02-20] MEDS: hydroCHLOROthiazide 25 MG Tablet PO (21:20)
[2021-02-20 21:43] LABS: Vancomycin, Trough Level 22.9 ug/mL (5.0-15.0)
[2021-02-21] VITALS (7 sets, daily range): BP systolic 128–157; BP diastolic 93–110; PULSE 69–98; RESP 16; TEMP 36.3–37.2; O2SAT 94–97
--- NOTE | 2021-02-21 01:14 | PCM.RX.CS ---
Consult Pharmacy has been consulted to manage selected antiobiotic: Vancomycin Type of Consult: Follow-up Suspected Infection: Skin/Soft tissue Prior Doses of Antibiotics Received/Current Regimen: Medications Discontinued Medications Vancomycin HCl 1,250 mg/ (Sodium Chloride) 275 mls @ 167 mls/hr IV Q8H AYAZ Last Admin: 02/20/21 22:17 Dose: Not Given Labs: Sodium 141 mmol/L (136-145) 02/20/21 05:00 Potassium 3.4 mmol/L (3.5-5.1) L 02/20/21 05:00 Chloride 105 mmol/L (98-107) 02/20/21 05:00 Carbon Dioxide 29.0 mmol/L (21.0-32.0) 02/20/21 05:00 Anion Gap 7 (5-15) 02/20/21 05:00 BUN 8 mg/dL (7-18) 02/20/21 05:00 Creatinine 0.75 mg/dL (0.70-1.30) 02/20/21 05:00 Est GFR (MDRD) Af Amer 140 mL/min (>60) 02/20/21 05:00 Est GFR (MDRD) Non-Af 115 mL/min (>60) 02/20/21 05:00 BUN/Creatinine Ratio 10.7 RATIO (10-20) 02/20/21 05:00 Glucose 105 mg/dL (74-106) 02/20/21 05:00 Vancomycin Trough 22.9 ug/mL (5.0-15.0) H 02/20/21 21:09 Microbiology: Microbiology 02/19/21 22:05 Urine, Random Urine Culture - Preliminary Culture exhibits no growth. 02/19/21 22:15 Wound - Leg Gram Stain - Final 02/19/21 22:15 Wound - Leg Wound Culture - Preliminary Mixed Gram Pos & Gram Neg Org Weight used for dosin.2 kg Estimated Creatinine Clearance: 110 Goal Trough: 15-20 mcg/mL Pharmacy Plan for Drug Dosing: Vancomycin trough level of 22.9 was above the target range of 15-20. The 02/20 evening dose was held, and a random level will be drawn with a.m. labs. Further dosing will be calculated from that result. Pharmacy Service will continue to monitor and adjust dosing as required. Follow-Up Labs: Trough Vancomycin - random Labs to be done on [date and time ordered]: 02/21/21 @7835
[2021-02-21] MEDS: MELATONIN 3 MG TABLET PO ×2 (01:32→21:38)
[2021-02-21 06:02] LABS: Vancomycin, Random Level 14.7 ug/mL (0.0-15.0)
[2021-02-21] MEDS: Vancomycin IV 1,000 MG/200 ML BAG 200 MG IV ×3 (07:03→22:38)
[2021-02-21] MEDS: Carvedilol 12.5 MG Tablet PO ×2 (08:15→21:42)
[2021-02-21] MEDS: Potassium Chloride Oral Tablet 20 MEQ PO (08:15)
[2021-02-21] MEDS: Enoxaparin 40 MG/0.4 ML Syringe SC (08:15)
[2021-02-21] MEDS: hydroCHLOROthiazide 25 MG Tablet PO (08:15)
[2021-02-21] MEDS: Lisinopril 20 MG Tablet PO (08:16)
[2021-02-21] MEDS: 0.9% Saline Lock 10 ML Syringe IV (14:03)
--- NOTE | 2021-02-21 14:32 | CASEMGMT ---
NICHOLE met with patient. Introduced self and role at [facility]. NICHOLE asked patient if he completed the Medicaid application or if he needed help completing it. He said he can complete it he is just procrastinating, but he would need a writing utensil. NICHOLE told him SW can get one for him. NICHOLE asked patient how he is doing. He said he thinks he is doing better. His ankles still hurt a bit. He said he still needs assistance with walking. He said that is part of the reason he came in because he was having problems walking. NICHOLE asked him he if feels he needs to go to a alf facility short term for rehab. He said he does not think so. He thinks he will bounce back before he has to go. NICHOLE then obtained a pen for patient and gave it to him. Cara WATSON
--- NOTE | 2021-02-21 19:10 | PN.HOSP_ITS ---
Subjective Subjective Patient was seen and examined today, his blood pressures are better, he is afebrile. Patient states he has less discomfort in his legs. Objective Data Objective Data Vital Signs: Vital Signs Temp Pulse Resp BP Pulse Ox 97.8 F 95 16 128/93 H 95 02/21/21 14:00 02/21/21 15:10 02/21/21 14:00 02/21/21 14:00 02/21/21 14:00 Oxygen Flow Rate (L/min) 2 Oxygen Delivery Method Room Air Weight: 99.881 kg Body Mass Index (BMI) 34.2 Intake & Output: Intake and Output for Last 24 Hours 02/19/21 02/20/21 02/21/21 23:59 23:59 23:59 Intake Total 2158.5 / 2158.5 3460 / 3460 1810 / 1810 Output Total 1750 / 1750 1850 / 1850 Balance 2158.5 / 2158.5 1710 / 1710 -40 / -40 Lab / Micro Data Result Diagrams: 02/20/21 05:00 02/20/21 05:00 Labs: Laboratory Results - last 24 hr 02/20/21 21:09: Vancomycin Trough 22.9 H 02/21/21 05:32: Random Vancomycin 14.7 Micro: Microbiology 02/19/21 22:15 Wound - Leg Gram Stain - Final 02/19/21 22:15 Wound - Leg Wound Culture - Preliminary Gram negative avtar Mixed Gram Positive Organisms 02/19/21 22:05 Urine, Random Urine Culture - Preliminary Culture exhibits no growth. Physical Exam Const alert, oriented x3 and no apparent distress General Appearance: cooperative, well kempt and well developed Orientation / Consciousness: awake, oriented to person, oriented to place and oriented to time HEENT normocephalic, head/scalp atraumatic and moist oral mucous membranes Head and Scalp: normocephalic Eyes PERRL, EOMs intact bilaterally and conjunctivae normal Neck nuchal rigidity, supple, no JVD, thyroid normal and no carotid bruits General: trachea midline Resp normal respiratory effort, no retractions, no use of accessory muscles and clear to auscultation bilaterally Auscultation: Negative for rales, rhonchi or wheezes Cardio regular rate, regular rhythm, S1 normal heart sound, S2 normal heart sound, no murmurs, no rub and no gallops GI normal to inspection, nondistended, normoactive bowel sounds, soft to palpation, non-tender and non-distended Extremity Extremity Narrative: Generalized redness and edema is noted over both lower extremity Skin Skin Narrative: Patient has stasis dermatitis changes over both lower extremities along with generalized redness and areas of excoriation. General Skin Exam: no breakdown Neuro oriented x3, CN's II-XII intact bilaterally, no focal motor deficits and no sensory deficits noted Sensorium / Orientation: awake and alert Speech: speech normal Psych thought process normal and affect normal Assessment & Plan Assessment/Plan (1) Cellulitis: QUALIFIERS: Site of cellulitis: extremity Site of cellulitis of extremity: lower extremity Laterality: unspecified laterality Qualified Code(s): L03.119 - Cellulitis of unspecified part of limb PLAN: 1. Cellulitis of the lower legs-continue present antibiotic coverage #2 essential hypertension-blood pressure is better today, patient remains on medication #3 noncompliance with medical regimen-patient was not taking his medications as directed and had not followed up with a physician after his last hospitaliz ation, I am suspicious that he has an underlying psych disorder #4 hypokalemia-patient's BMP will be repeated tomorrow #5 stasis dermatitis of the lower legs Patient has no evidence of septic shock, I do not believe patient had septic shock on admission to the hospital Charges/Coding Visit Charges Inpatient E&M: 20150 Subs Hosp L2
[2021-02-22] VITALS (10 sets, daily range): BP systolic 133–148; BP diastolic 95–103; PULSE 62–98; RESP 16; TEMP 36.7–36.8; O2SAT 92–96
[2021-02-22] MEDS: Vancomycin IV 1,000 MG/200 ML BAG 200 MG IV (06:37)
[2021-02-22 07:43] LABS: Anion Gap 5 (5-15); BUN 8 mg/dL (7-18); BUN/Creat Ratio 9.8 RATIO (10-20); Calcium,Total 8.7 mg/dL (8.5-10.1); Chloride 98 mmol/L (98-107); Creatinine, Serum 0.81 mg/dL (0.70-1.30); EST Glomerular Filtration Rate 105 mL/min (>60); Est Glom Filt Rate - Afr Amer 127 mL/min (>60); Estimated Creatinine Clearance 102.04 ml/min; Glucose 93 mg/dL (74-106); Potassium 3.7 mmol/L (3.5-5.1); Sodium Level 137 mmol/L (136-145); Vancomycin, Trough Level 25.3 ug/mL (5.0-15.0)
--- NOTE | 2021-02-22 08:53 | PCM.RX.CS ---
Consult Pharmacy has been consulted to manage selected antiobiotic: Vancomycin Type of Consult: Follow-up Suspected Infection: Skin/Soft tissue Prior Doses of Antibiotics Received/Current Regimen: current dose is 1000mg IV q8h and a dose was given this morning at 06:37 Labs: Sodium 137 mmol/L (136-145) 02/22/21 06:25 Potassium 3.7 mmol/L (3.5-5.1) 02/22/21 06:25 Chloride 98 mmol/L (98-107) 02/22/21 06:25 Carbon Dioxide 34.0 mmol/L (21.0-32.0) H 02/22/21 06:25 Anion Gap 5 (5-15) 02/22/21 06:25 BUN 8 mg/dL (7-18) 02/22/21 06:25 Creatinine 0.81 mg/dL (0.70-1.30) 02/22/21 06:25 Est GFR (MDRD) Af Amer 127 mL/min (>60) 02/22/21 06:25 Est GFR (MDRD) Non-Af 105 mL/min (>60) 02/22/21 06:25 BUN/Creatinine Ratio 9.8 RATIO (10-20) L 02/22/21 06:25 Glucose 93 mg/dL (74-106) 02/22/21 06:25 Vancomycin Trough 25.3 ug/mL (5.0-15.0) H 02/22/21 06:25 Random Vancomycin 14.7 ug/mL (0.0-15.0) 02/21/21 05:32 Microbiology: Microbiology 02/19/21 22:15 Wound - Leg Gram Stain - Final 02/19/21 22:15 Wound - Leg Wound Culture - Preliminary Proteus mirabilis Mixed Gram Positive Organisms 02/19/21 22:20 Blood Culture (Wb) #2 - Right Hand Blood Culture - Preliminary No growth in 48 hours. 02/19/21 20:30 Blood Culture (Wb) - Left Hand Blood Culture - Preliminary No growth in 48 hours. 02/19/21 22:05 Urine, Random Urine Culture - Preliminary Culture exhibits no growth. Weight used for dosin.9 kg Estimated Creatinine Clearance: >100ml/min Goal Trough: 15-20 mcg/mL Pharmacy Plan for Drug Dosing: The vanc trough drawn before this morning's dose (drawn approximately 8 hours after the previous dose) came back as 25.3. This is back up above 20 so will hold further dosing at this time. This morning's dose was given after the trough was drawn so will check a vanc random level about 16 hours after that which will be tonight at 22:00. Pharmacy will evaluate further dosing at that time. Pharmacy Service will continue to monitor and adjust dosing as required. Follow-Up Labs: Trough Vancomycin - random Labs to be done on [date and time ordered]: 02/22/21 22:00
[2021-02-22] MEDS: Potassium Chloride Oral Tablet 20 MEQ PO (09:15)
[2021-02-22] MEDS: Carvedilol 12.5 MG Tablet PO (09:16)
[2021-02-22] MEDS: hydroCHLOROthiazide 25 MG Tablet PO (09:16)
[2021-02-22] MEDS: Enoxaparin 40 MG/0.4 ML Syringe SC (09:16)
[2021-02-22] MEDS: Lisinopril 20 MG Tablet PO (09:17)
--- NOTE | 2021-02-22 11:39 | NURSING ---
Walking pulse oximetry requested for patient discharge instructions. Patient ambulated down the hallway and back to the room approximately 150 feet, while maintaining an oxygen level of 90% or greater. Patient stated that he had no shortness of breath during ambulation. Patient tolerated ambulation well. Junior VILLA ST[facility] JO[facility]PH MEDICAL CENTERMeghan
--- NOTE | 2021-02-22 11:51 | PCM.DC ---
Discharge Instructions Diet Discharge Diet: No restrictions Activity Discharge Activity: Return to Normal Activity Weight Bearing Status: Full weight bearing Dressing / Incision Call your doctor if you observe: Fever of 101 or Higher Change Dressing in: 1 day (Remove your leg dressing tomorrow, wash her legs with soap and water daily, do not redress your legs and less they are weeping with discharge.) Follow Up Care Test Results: Test results from this visit will be discussed in further detail at your follow-up appointment, if applicable. Discharge Plan Admission Admit Date/Time: 02/20/21 00:34 Primary Reason for Your Visit: cellulitis Attending Provider: Kirit Holden Primary Care Provider: Care Physician,No Primary Consulting Providers: Balbir Motta Discharge Orders/Prescriptions Prescriptions: New carvedilol 12.5 mg Tablet 12.5 mg PO BID Qty: 60 RF: 1 lisinopril 20 mg Tablet 20 mg PO DAILY Qty: 30 RF: 1 potassium chloride [Klor-Con M20] 20 mEq Tablet,Er Particles/Crystals 20 meq PO DAILYCM Qty: 30 RF: 1 hydrochlorothiazide 25 mg Tablet 25 mg PO DAILY Qty: 30 RF: 1 amoxicillin-pot clavulanate [Augmentin] 875-125 mg tablet 1 tab PO BID Qty: 20 RF: 0 No Action NK RF: 0 Referrals / Follow Up: Care Physician,No Primary [Primary Care Provider] - See Referral Note (in 2-3 weeks) Disposition Disposition (needs filled in before D/C Order can be placed): Home, Self Care
--- NOTE | 2021-02-22 13:38 | CASEMGMT ---
Patient completed Medicaid application. He did not fill in any information about his income. SW is aware he is not working, but he is living off an inheritance. JFS will want to know how much he has in the bank and in leal. NICHOLE spoke with patient and he said he does not know exactly how much his inheritance is off the top of his head. SW told him we need to put something down or they may not process the application. He guessed around $30,000. NICHOLE put this on the application. Medicaid application was faxed to [facility]. Patient also completed an HCAP form for [facility] Patient Financial Services. NICHOLE put this in an interoffice envelope and sent to [employer]. NICHOLE also asked patient if he will be able to get his medications at discharge. He said he will be fine. They are being filled at [facility] so they can bring him his medications. Cara WATSON
--- NOTE | 2021-02-22 14:24 | NURSING ---
Read and reviewed SN documentation. Reviewed plan of care with SN
--- NOTE | 2021-02-22 19:54 | DS.PCM_ITS ---
Providers Date of Admission: 02/20/21 Date of Discharge: 02/22/21 Primary Care Physician: Maryanne Primary Care Phys Consultations 02/20/21 00:58 Consult: Onc/Wound/transport aide Routine Comment: Reason for Consult:: Bilateral legs swelling 02/20/21 01:38 Consult: Nnps / Pulmonary Medicine Routine Consulting Provider: Balbir Motta Reason for Consult: Septic shock EMERGENT Consult: No MD Notified: Yes Date Notified: 02/20/21 Time Notified: 00:40 Method of Notification: Text Reason For Visit: SEPTIC SHOCK Diagnosis Discharge Diagnosis (1) Cellulitis: Status: Acute Code(s): L03.90 - Cellulitis, unspecified Qualifiers: Laterality: unspecified laterality Site of cellulitis: extremity Site of cellulitis of extremity: lower extremity Qualified Code(s): L03.119 - Cellulitis of unspecified part of limb Plan: 1. Cellulitis of the lower legs #2 essential hypertension #3 noncompliance with medical regimen #4 hypokalemia #5 stasis dermatitis changes of the lower legs There was no evidence for septic shock at the time of admission, hospitalization, or discharge Medications at Discharge Home Medications NK 02/19/21 amoxicillin-pot clavulanate [Augmentin] 1 tab PO BID #20 tab 02/22/21 carvedilol 12.5 mg PO BID #60 tab 02/22/21 hydrochlorothiazide 25 mg PO DAILY #30 tab 02/22/21 lisinopril 20 mg PO DAILY #30 tab 02/22/21 potassium chloride [Klor-Con M20] 20 meq PO DAILYCM #30 tab 02/22/21 Hospital Course Operations None Procedures None Summary of Care Provided Minutes Spent on Discharge: 31 Hospital Course: This 55-year-old white male was seen in the emergency room at [facility] with a chief complaint of lower extremity edema, lower extremity redness, and foul-smelling discharge from his lower legs. 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 Patient lives alone. Evaluation in the ER showed the patient's hygiene to be poor with severe redness of the lower legs and swelling. Work-up in the emergency room included a CBC which showed an elevated white blood cell count at 11.1, patient's lactic acid was highly elevated at 7.8 and it was felt that he might be in septic shock. He was given IV antibiotics and fluids and admitted to ICU, this examiner did not feel the patient had septic shock, the etiology of the elevated lactic acid was unknown. Patient was maintained on IV antibiotics and he was transferred to PCU, he was seen by PT and OT and the wound care nurse. Patient freely admitted being noncompliant with medical instructions, this examiner felt that the patient has an underlying psych disorder but it was unclear the actual disorder. On 02/22/2021, patient was seen and examined:alert, oriented x3 and no apparent distress General Appearance: cooperative, well kempt and well developed Orientation / Consciousness: awake, oriented to person, oriented to place and oriented to time HEENT normocephalic, head/scalp atraumatic and moist oral mucous membranes Head and Scalp: normocephalic Eyes PERRL, EOMs intact bilaterally and conjunctivae normal Neck nuchal rigidity, supple, no JVD, thyroid normal and no carotid bruits General: trachea midline Resp normal respiratory effort, no retractions, no use of accessory muscles and clear to auscultation bilaterally Auscultation: Negative for rales, rhonchi or wheezes Cardio regular rate, regular rhythm, S1 normal heart sound, S2 normal heart sound, no murmurs, no rub and no gallops GI normal to inspection, nondistended, normoactive bowel sounds, soft to palpation, non-tender and non-distended Extremity Extremity Narrative: Generalized redness and edema is noted over both lower ex tremity areas Skin Skin Narrative: Patient has stasis dermatitis changes over both lower extremities along with generalized redness and areas of excoriation. General Skin Exam: no breakdown Neuro oriented x3, CN's II-XII intact bilaterally, no focal motor deficits and no sensory deficits noted Sensorium / Orientation: awake and alert Speech: speech normal Psych thought process normal and affect becky On 02/22/2021, patient was felt to be stable for discharge home. L Weight / BMI Weight Weight: 99.881 kg Body Mass Index (BMI) 34.2 ABG / Lab / Microbiology Data Result Diagrams: 02/20/21 05:00 02/22/21 06:25 Laboratory: Laboratory Results - last 24 hr 02/22/21 06:25: Vancomycin Trough 25.3 H 02/22/21 06:25: Sodium 137, Potassium 3.7, Chloride 98, Carbon Dioxide 34.0 H, Anion Gap 5, BUN 8, Creatinine 0.81, Estim Creat Clear Calc 102.04, Est GFR (MDRD) Af Amer 127, Est GFR (MDRD) Non-Af 105, BUN/Creatinine Ratio 9.8 L, Glucose 93, Calcium 8.7 Microbiology: Microbiology 02/19/21 22:05 Urine, Random Urine Culture - Final Culture exhibits no growth. 02/19/21 22:15 Wound - Leg Gram Stain - Final 02/19/21 22:15 Wound - Leg Wound Culture - Preliminary Proteus mirabilis Mixed Gram Positive Organisms 02/19/21 22:20 Blood Culture (Wb) #2 - Right Hand Blood Culture - Preliminary No growth in 48 hours. 02/19/21 20:30 Blood Culture (Wb) - Left Hand Blood Culture - Preliminary No growth in 48 hours. D/C Instructions Discharge Diet: No restrictions Weight Bearing Status: Full weight bearing Call your doctor if you observe: Fever of 101 or Higher Meaningful Use Info Meaningful Use Diagnoses (Choose all that apply): None applicable Discharge Plan Admission Admit Date/Time: 02/20/21 00:34 Primary Reason for Your Visit: cellulitis Attending Provider: Kirit Holden Primary Care Provider: Care Physician,No Primary Consulting Providers: Balbir Motta Instructions Additional Instructions / Restrictions: Patient Problems: Altered Health Status related to Hospitalization Patient Goals: *Optimal Level of Health *Keep Appointments *Medication Compliance *Remain Safe Discharge Orders/Prescriptions Prescriptions: New carvedilol 12.5 mg Tablet 12.5 mg PO BID Qty: 60 RF: 1 lisinopril 20 mg Tablet 20 mg PO DAILY Qty: 30 RF: 1 potassium chloride [Klor-Con M20] 20 mEq Tablet,Er Particles/Crystals 20 meq PO DAILYCM Qty: 30 RF: 1 hydrochlorothiazide 25 mg Tablet 25 mg PO DAILY Qty: 30 RF: 1 amoxicillin-pot clavulanate [Augmentin] 875-125 mg tablet 1 tab PO BID Qty: 20 RF: 0 No Action NK RF: 0 Referrals / Follow Up: Care Physician,No Primary [Primary Care Provider] - See Referral Note (in 2-3 weeks) Disposition Disposition (needs filled in before D/C Order can be placed): Home, Self Care Charges/Coding Visit Charges Inpatient E&M: 22085 Disch Hosp
== END 2021-02-22 15:10 | disposition home or self-care (01) | DRG 603 ==
LOC: ED 23:51 → ICU 02-20 07:06 → PCU 02-21 02:31
PROVIDERS: Admitting Provider Hospitalist; Emergency Provider Student in an Organized Health Care Education/Training Program; Visit Provider Internal Medicine
DX: L03.115 Cellulitis of right lower limb (principal); L03.116 Cellulitis of left lower limb; B96.4 Proteus (mirabilis) (morganii) as the cause of diseases classified elsewhere; I87.2 Venous insufficiency (chronic) (peripheral); I16.0 Hypertensive urgency; I10 Essential (primary) hypertension; E87.6 Hypokalemia; E66.9 Obesity, unspecified; F17.210 Nicotine dependence, cigarettes, uncomplicated; R62.7 Adult failure to thrive; Z68.35 Body mass index [BMI] 35.0-35.9, adult; Z91.14 Patient's other noncompliance with medication regimen; Z91.19 Patient's noncompliance with other medical treatment and regimen; Z59.1 Inadequate housing; Z79.899 Other long term (current) drug therapy
CPT/HCPCS: 36415; 71045; 73590; 73630; 80048; 80053; 80202; 81001; 83605; 84484; 85025; 85610; 85730; 87040; 87070; 87077; 87086; 87101; 87186; 87205; 93005; 93970; 97110; 97162; 97166; 97530; 97535; 97802; 99285; 99406; J7030; J7040; J7050; A4216

== ENCOUNTER 2021-11-20 13:30 | Inpatient (IN) | payer SELFPAY ==
[2021-11-20] VITALS (12 sets, daily range): BP systolic 143–184; BP diastolic 67–115; PULSE 75–129; RESP 14–24; TEMP 36.6–37.2; O2SAT 89–97; BMI 36.9; BMI 35.7
--- NOTE | 2021-11-20 13:43 | EKG12_ITS ---
Test Reason : WOUND Blood Pressure : / mmHG Vent. Rate : 130 BPM Atrial Rate : 130 BPM P-R Int : 112 ms QRS Dur : 088 ms QT Int : 392 ms P-R-T Axes : 000 035 078 degrees QTc Int : 576 ms Sinus tachycardia Septal infarct , age undetermined ST & T wave abnormality, consider lateral ischemia Abnormal ECG Confirmed by FAB SCOTT, SINTIA ([id number]), sound editor KAREEN MUÑIZ ([id number]) on 11/21/2021 9:25:33 AM Referred By: MARY ANNE Confirmed By:SINTIA SANON MD
--- NOTE | 2021-11-20 13:45 | EX.ED.DYSGE1 ---
HPI History of Present Illness Chief Complaint: Wound Detail of Chief Complaint: Generalized weakness and wound to right leg Informant: patient Narrative Narrative: Patient presents to the emergency department with a fall that occurred while [place] sto[place]. 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 Patient could not get back up. His neighbor called the squad. Patient states that he sits a lot and he feels like he is deconditioned. On EMS arrival they noted that patient had wounds to the lower extremities with foul odor emanating and maggots noted on his flush. Patient denies any fever or recent illness otherwise. He denies chest pain or shortness of breath. Patient denies any injury during the fall. Patient is adamant he did not hit his head. Patient does state that he had an injury to his shins a few weeks ago. Prior similar symptoms: No [facility] Medical History (Updated 11/20/21 @ 15:[address] 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 Home Medications NK 11/20/21 [History Last Taken Unknown] Allergy/AdvReac Type Severity Reaction Status Date / Time No Known Allergies Allergy Verified 11/20/21 13:33 Family History Father Cancer Mother Cancer Brother Hypertension Surgical History S/P tonsillectomy Social History (Updated 02/20/21 @ 01:47 by Adrianne Rivera) household members: none and other details: alone housing: apartment current occupational status: unemployed Smoking Status: Current every day smoker tobacco type: cigarettes alcohol intake: current substance use type: does not use ROS ROS ED Review of Systems ROS Unobtainable: other Constitutional Constitutional ED: Reports lethargy; Denies chills, fever(s), sweats or weight loss Eyes Eyes: Denies blurry vision, change in vision or diplopia ENT ENT ED: Denies rhinorrhea or sore throat Cardiovascular Cardiovascular: Reports chest pain and racing heartbeat; Denies orthopnea Respiratory/Chest Respiratory/Chest: Reports dyspnea and dyspnea on exertion; Denies cough, orthopnea or sputum Gastrointestinal Gastrointestinal: Denies abdominal pain, diarrhea, nausea or vomiting Genitourinary Genitourinary ED: Denies dysuria, hematuria or urinary frequency Musculoskeletal Musculoskeletal: Denies arthralgias, back pain, myalgias or neck pain Integumentary Reports other Details: Wounds to lower extremities ; Denies abscess, Abrasions or rash Neurologic Neurologic: Denies headache(s) or weakness Psychiatric Psychiatric: Denies anxiety, depression or suicidal thoughts Endocrine Endocrinology: Denies polydipsia, polyphagia or polyuria Hematologic/Lymphatic Hematologic/Lymphatic: Denies easy bleeding, easy bruising or lymphadenopathy Allergic/Immunologic Allergic/Immunologic ED: Denies mouth swelling, tongue swelling or urticaria EXAM Physical Exam Const Vital Signs: 11/20/21 13:30 11/20/21 13:35 11/20/21 14:35 Temperature 98.6 F 98.9 F 98.9 F Temperature Source Temporal Temporal Temporal Pulse Rate 129 H 113 H 120 H Respiratory Rate 20 H 18 20 H Blood Pressure 156/93 H 159/89 H 143/72 H Blood Pressure Mean 114 112 95 Pulse Ox 89 92 97 Oxygen Delivery Method Room Air Nasal Cannula Nasal Cannula Oxygen Flow Rate (L/min) 2 2 11/20/21 15:00 Temperature 98.9 F Temperature Source Temporal Pulse Rate 122 H Respiratory Rate 16 Blood Pressure 149/67 H Blood Pressure Mean 94 Pulse Ox 97 Oxygen Delivery Method Nasal Cannula Oxygen Flow Rate (L/min) 2 Positive well nourished and well developed General Appearance ED: well developed and NAD HEENT Reports TM's clear and moist mucous membranes normocephalic and atraumatic; Negative for trauma or tenderness Tympanic Membrane ED: Yes TM's clear Eyes PERRL and EOMs intact bilaterally General Eye ED: Negative for pale conjunctiva or scleral icterus Neck no lymphadenopathy, supple and no JVD General: Negative for tenderness Chest Wall inspection of chest normal and palpation of chest normal Chest: Negative for tenderness Resp normal respiratory effort and clear to auscultation bilaterally Effort and Inspection: Negative for respiratory distress or pain with movement Auscultation: Negative for rhonchi, wheezes or diminished lung sounds Cardio regular rate, regular rhythm, S1 normal heart sound, S2 normal heart sound and no murmurs Peripheral Pulses: pulses 2+ throughout GI normal to inspection, nondistended, normoactive bowel sounds, soft to palpation, non-tender, non-distended and no masses Back/Spine no CVA tenderness and no thoracic nor lumbar tenderness Extremity Extremity Narrative: Evaluation of the right lower extremity reveals that he has lymphedema with diffuse erythema and cellulitic changes to the right lower extremity. Patient did have maggots on his pants and skin that is macerated. Patient also with lymphedema of the left lower extremity. General Extremety ED: Negative for edema General Extremity: Negative for edema Neuro oriented x3, CN's II-XII intact bilaterally, no sensory deficits noted and gait normal Sensorium / Orientation: awake, alert, oriented to person, oriented to place and oriented to time Motor Exam: strength 5/5 throughout and strength abnormal Psych mental status grossly normal Skin no rashes or lesions noted and no wounds MDM MDM MDM Narrative Medical decision making narrative: IV line established on arrival. Patient initially placed on 2 L nasal cannula O2. On EMS arrival to patient's home his O2 sat was 93% on room air however on arrival to ER his pulse ox dropped into the 88 to 89% range and was placed on 2 L nasal cannula O2. Patient's pants were removed and his lower extremities were cleansed and debrided of maggots and tissue by nursing staff. Patient was started empirically on Unasyn and vancomycin given suspicion for infectious process especially to the right lower extremity. Patient was noted to have a lactic acidosis. Patient's white blood cell count however was normal. Case will be discussed with hospitalist evaluate patient for admission. Recommended evaluation by social work as well given that he is now here with similar condition x2 in the last year and there is concern about whether or not patient can care for self. Lab Data Attestation: I reviewed the patient's lab results. Labs: Laboratory Results - last 24 hr 11/20/21 11/20/21 11/20/21 13:55 13:55 13:55 WBC 9.5 RBC 4.41 L Hgb 14.4 Hct 43.8 MCV 99.3 H MCH 32.7 H MCHC 32.9 RDW Std Deviation 50.7 H RDW Coeff of Flor 13.7 Plt Count 416 MPV 9.6 Immature Gran % (Auto) 4.100 H Neut % (Auto) 75.3 H Lymph % (Auto) 8.4 L [place] % (Auto) 10.1 H Eos % (Auto) 1.3 Baso % (Auto) 0.8 Absolute Neuts (auto) 7.2 Absolute Lymphs (auto) 0.80 L Nucleated RBC % 0 Sodium 139 Potassium 3.4 L Chloride 103 Carbon Dioxide 26.0 Anion Gap 10 BUN 15 Creatinine 1.18 Estim Creat Clear Calc 69.24 Est GFR (MDRD) Af Amer 83 Est GFR (MDRD) Non-Af 68 BUN/Creatinine Ratio 12.7 Glucose 96 Lactic Acid 6.1 H* Calcium 8.7 Radiography Diagnostic Testin view chest x-ray obtained interpreted by myself as no acute disease process. Radiology felt there was bibasilar scarring. 2 view x-rays of right tib-fib obtained interpreted by myself as no evidence of osteomyelitis or gas gangrene. Radiology in agreement felt there was some soft tissue swelling diffusely. EKG Initial EKG: Attestation: I personally reviewed and interpreted this EKG as follows: Comments: Sinus rhythm with a rate of [address] changes Discharge Plan Triage Chief Complaint: Wound Other Complaint: Fall ED Provider: Toribio Ayala Dx/Rx/DC Orders Clinical Impression: Cellulitis of leg, right, Weakness, Acidosis, lactic Prescriptions: No Action NK Primary Care Provider: Care Physician,No Primary Referrals: Care Physician,No Primary [Primary Care Provider] - Disposition Disposition: [facility]
[2021-11-20 14:08] LABS: Absolute Neutrophil Count 7.2 X10^3/uL (2.0-7.7); Basophil# 0.08 X10^3/uL; Basophil% 0.8 % (0-1); Eosinophil# 0.12 X10^3/uL; Eosinophils% 1.3 % (0-5); Hematocrit 43.8 % (40-54); Hemoglobin 14.4 g/dL (13.0-16.5); Lymphocyte % 8.4 % (19-41); Mean Corp Hgb Conc 32.9 g/dL (32-36); Mean Corpuscular Hgb 32.7 pg (27.0-32.0); Mean Corpuscular Volume 99.3 fL (80-94); Mean Platelet Vol. 9.6 fl (6.2-12.0); Monocyte# 0.96 X10^3/uL; Monocyte% 10.1 % (0-10); NRBC Flagged by Analyzer 0 % (0-5); Neutrophil # 7.18 X10^3/uL (2.7-7.7); Neutrophil % 75.3 % (47-70); Platelet Count 416 K/mm3 (150-450); RBC Distribution Width CV 13.7 % (11.6-14.6); RBC Distribution Width SD 50.7 fl (35.1-43.9); Red Blood Count 4.41 M/mm3 (4.6-6.2); White Blood Count 9.5 K/mm3 (4.4-11.0)
[2021-11-20 14:21] LABS: Anion Gap 10 (5-15); BUN 15 mg/dL (7-18); BUN/Creat Ratio 12.7 RATIO (10-20); Calcium,Total 8.7 mg/dL (8.5-10.1); Chloride 103 mmol/L (98-107); Creatinine, Serum 1.18 mg/dL (0.70-1.30); EST Glomerular Filtration Rate 68 mL/min (>60); Est Glom Filt Rate - Afr Amer 83 mL/min (>60); Estimated Creatinine Clearance 69.24 ml/min; Glucose 96 mg/dL (74-106); Potassium 3.4 mmol/L (3.5-5.1); Sodium Level 139 mmol/L (136-145)
[2021-11-20 14:29] LABS: Lactic Acid 6.1 mmol/L (0.4-1.9)
[2021-11-20] MEDS: 0.9% Normal Saline 1,000 ML 150 ML IV (14:45)
--- NOTE | 2021-11-20 15:13 | RAD_ITS ---
STUDY: X-RAY CHEST REASON FOR EXAM: Male, 56 years old. Hypoxia . Sepsis workup. TECHNIQUE: Single AP portable view of the chest. COMPARISON: Comparison is made with prior study dated 02/19/2021. FINDINGS: EKG electrodes are seen. Stable mild degree of increased markings at the lung base suggestive of basilar scarring. Hyperinflation. There is no demonstrated pleural abnormality. Normal size heart. Normal mediastinum and mateo. Normal visualized pulmonary arteries. Normal visualized aortic arch and descending thoracic aorta. Normal visualized thoracic spine. Normal visualized ribs, clavicles, and shoulders. There is no demonstrated abnormality of the visualized soft tissue structures of the upper abdomen. RAD/Chest 1 View (Portable) IMPRESSION: Hyperinflation. Mild increased linear markings at the lung bases suggestive of mild bibasilar scarring. Electronically Signed: Alex Brownlee MD at 15:36 EDT ,
--- NOTE | 2021-11-20 15:18 | RAD_ITS ---
STUDY: X-RAY - RIGHT TIBIA AND FIBULA REASON FOR EXAM: Male, 56 years old. Cellulitis TECHNIQUE: 4 view(s) of the tibia and fibula were obtained. COMPARISON: Comparison is made with prior study dated 02/20/2020 FINDINGS: Normal visualized tibia. Normal visualized fibula. Marked degree of diffuse soft tissue swelling. RAD/Tibia & Fibula 2 Views IMPRESSION: Moderate degree of diffuse soft tissue swelling. Electronically Signed: Alex Brownlee MD at 15:36 EDT ,
--- NOTE | 2021-11-20 15:36 | NURSING ---
DR MARLENE SLADE
--- NOTE | 2021-11-20 15:46 | NURSING ---
dr pedraza in er
--- NOTE | 2021-11-20 16:01 | NURSING ---
PCU MARLENE CELLULITIS, LACTIC ACIDOSIS, WEAKNESS
--- NOTE | 2021-11-20 16:06 | CT_ITS ---
EXAM: CT ANGIOGRAPHY CHEST WITHOUT AND WITH INTRAVENOUS CONTRAST CLINICAL INDICATION: hypoxia, tachycardia TECHNIQUE: Helically acquired angiography images were obtained of the chest without and with intravenous contrast. This CT exam was performed using one or more of the following dose reduction techniques: automated exposure control, adjustment of the mA and/or kV according to patient size, and/or use of iterative reconstruction technique. This report was created using [employer] report generation technology. MIP reconstructed images were created and reviewed. CONTRAST: IV 100mL [id number]-[id number] COMPARISON: None. FINDINGS: PULMONARY ARTERIES: Unremarkable. Normal in caliber. No evidence of pulmonary embolism. AORTA: Unremarkable. Normal in caliber. No evidence of dissection. GREAT VESSELS OF AORTIC ARCH: Unremarkable. Normal in caliber. No evidence of dissection. LUNGS AND PLEURAL SPACES: Mild fibrotic changes in the right lung. Mild paraseptal emphysema. No mass. No pleural effusion or thickening. No pneumothorax. HEART: Unremarkable. Heart size is normal. No pericardial effusion. No signs of right heart strain, ratio of right ventricle to left ventricle measures less than 1. MEDIASTINUM: Unremarkable. No mediastinal or hilar adenopathy. Esophagus is unremarkable. No hiatal hernia. THYROID: Unremarkable. No thyroid lesions. BONES/JOINTS: Unremarkable. No suspicious lytic or blastic abnormality. LIVER: Diffuse fatty infiltration of the liver. No focal lesion. CT/CTA Chest W/WO Contrast IMPRESSION: 1. No acute findings. 2. Hepatic steatosis. Electronically Signed: Stephanie Montes MD at 17:10 EDT Reading Location ID and State: [id number] / Tel , Service support ,
--- NOTE | 2021-11-20 16:38 | ED.RN ---
this nurse and paloma rn clean bilateral legs, maggots noted in wounds. legs swollen. extremely dry skin. foul odor
--- NOTE | 2021-11-20 17:12 | PCM.HP.STD ---
HPI - General General Date of Admission: 11/20/21 Date of Service: 11/20/21 Chief Complaint: Weakness/leg wounds HPI Narrative DAYAMI BHAT, is a 56 M who presented to the emergency department [facility] on 11/20/2021 after suffering a fall that occurred on the front stoop of his home. The patient reported that he went out to rock picker a package and his legs gave out and he fell onto his buttocks while trying to rock picker the package. He unfortunate was unable to get back up and his neighbor called the squad. The patient states he sits a lot and feels like he is deconditioned. Upon EMS arrival they noted that the patient had wounds on his lower extremities with a foul order and emanating and maggots noted on his lower extremities. The patient reports that he has had increased swelling for approximately 2 to 3 weeks however I note that he was admitted with a similar presentation in February 2021. At that time he refused to go to a facility. He states he takes no other medications at home and had no other complaints. He denies any chest pain, shortness of breath, nausea, vomiting, diarrhea, hematemesis, hematochezia, melena, fever or chills. Vital signs on presentation showed a temperature of 98.6, pulse rate was 113-129 while in the emergency department, his blood pressures were elevated throughout his ED course at 156/93 on presentation, respiratory rate was 20, oxygen saturations were initially 89% on room air. He was placed on 2 L nasal cannula at which time his oxygen saturation improved to 92 to 97% CBC was fairly unremarkable. His white count was normal and he had a mild left shift at 75.3% neutrophils. His chemistry panel showed only mild hypokalemia with a potassium of 3.4. Lactic acid was obtained and was found to be 6.1. His chest x-ray showed hyperinflation and mild increased linear markings at the bases suggestive of bibasilar scarring. Given the presentation of his legs films of his tibia and fibula were performed and showed only moderate degree of diffuse soft tissue swelling. A CT of his chest was performed given his tachycardia and hepatic steatosis. In the emergency department he was started on antibiotics and blood cultures were obtained. [facility] Medical History Failure to thrive HTN (hypertension) Leg wound, left Leg wound, right Migraines Smoker Ulcer of left heel and midfoot with fat layer exposed Ulcers of both lower legs with fat layer exposed Home Medications NK 11/20/21 [History Last Taken Unknown] Allergy/AdvReac Type Severity Reaction Status Date / Time No Known Allergies Allergy Verified 11/20/21 13:33 Family History Father Cancer Mother Cancer Brother Hypertension Surgical History S/P tonsillectomy Social History (Updated 11/20/21 @ 17:[address] Nina Mccollum DO) household members: none and other details: alone housing: apartment current occupational status: unemployed Smoking Status: Current every day smoker tobacco type: cigarettes alcohol intake: current details: Periodic binge drinking usually on a weekly basis but not a daily drinker substance use type: does not use ROS Constitutional Constitutional: Denies anorexia, change in weight, chills, fatigue, fever(s), malaise, night sweats, weakness or other Eyes Eyes: Denies blurry vision, change in eye color, change in vision, discharge from eye(s), double vision, erythema, eye pain, loss of vision or other ENT HEENT: Denies abnormal hearing, dysphagia, ear pain, epistaxis, headache(s), hearing loss, nasal congestion, nasal discharge, post nasal drip, sinus pressure, sore throat or other Cardiovascular Cardiovascular: Denies chest pain, claudication, dyspnea on exertion, edema, lightheadedness, orthopnea, palpitations, paroxysmal nocturnal dyspnea, rapid heart rate, syncope or other Respiratory/Chest Respiratory/Chest: Reports cough; Denies dyspnea, excessive phlegm production, hemoptysis, productive cough, shortness of breath at rest, shortness of breath with exertion, wheezing or other Gastrointestinal Gastrointestinal: Denies abdominal pain, coffee ground emesis, constipation, diarrhea, dyspepsia, hematemesis, hematochezia, loose stools, melena, nausea, vomiting or other Genitourinary Genitourinary: Denies burning urination, difficulty urinating, dysuria, hematuria, nocturia, urinary frequency, urinary hesitancy, urinary incontinence, urinary urgency or other Musculoskeletal Musculoskeletal: Reports other Details: Bilateral lower extremity swelling Psychiatric Psychiatric: Denies anxiety, depression, homicidal ideation, suicidal ideation or other Endocrine Endocrinology: Denies change in body appearance, cold intolerance, excessive sweating, heat intolerance, polydipsia, polyuria or other Hematologic/Lymphatic Hematologic/Lymphatic: Denies anemia, easy bleeding, easy bruising, lymphadenopathy or other Allergic/Immunologic Allergic/Immunologic: Denies rhinitis, hives, eczemia, asthma or other Vital Signs Vital Signs Vital Signs: 11/20/21 13:30 11/20/21 13:35 11/20/21 14:35 Temperature 98.6 F 98.9 F 98.9 F Temperature Source Temporal Temporal Temporal Pulse Rate 129 H 113 H 120 H Respiratory Rate 20 H 18 20 H Blood Pressure 156/93 H 159/89 H 143/72 H Blood Pressure Mean 114 112 95 Pulse Ox 89 92 97 Oxygen Delivery Method Room Air Nasal Cannula Nasal Cannula Oxygen Flow Rate (L/min) 2 2 11/20/21 15:00 11/20/21 16:09 Temperature 98.9 F 98.9 F Temperature Source Temporal Temporal Pulse Rate 122 H 122 H Respiratory Rate 16 14 Blood Pressure 149/67 H 155/100 H Blood Pressure Mean 94 118 Pulse Ox 97 92 Oxygen Delivery Method Nasal Cannula Room Air Oxygen Flow Rate (L/min) 2 Weight Weight: 110.223 kg Body Mass Index (BMI) 36.9 Physical Exam Const alert, oriented x3, no apparent distress and well nourished Constitutional Narrative: Obese, middle-age male who appears stated age, sitting up in bed, appears comfortable and nontoxic General Appearance: cooperative HEENT normocephalic, head/scalp atraumatic, hearing grossly normal bilaterally and moist oral mucous membranes HEENT Narrative: Mallampati 3, no thrush, dentition is fair Eyes PERRL, EOMs intact bilaterally and conjunctivae normal Eyes Narrative: No scleral icterus Neck no lymphadenopathy, supple, no JVD and no carotid bruits Neck Narrative: Trachea midline, no thyroid enlargement Resp normal respiratory effort, no retractions and no use of accessory muscles Resp Narrative: Scattered end expiratory wheezes worse at the bases bilaterally, no rales or rhonchi Auscultation: wheezes; Negative for crackles, rales or rhonchi Cardio regular rhythm, S1 normal heart sound, S2 normal heart sound, no murmurs, no rub, no gallops, no clicks and no JVD Cardio Narrative: Tachycardia, positive S4 GI normal to inspection, nondistended, normoactive bowel sounds, soft to palpation, non-tender and non-distended Extremity Extremity Narrative: Bilateral lower extremity lymphedema, no clubbing or cyanosis Skin No no rashes or lesions noted, No no wounds, skin turgor normal, no jaundice, no petechiae and no mottling Skin Narrative: Bilateral lower extremities with diffuse wounds up to the knees, maggots found upon presentation, onychomycosis bilateral lower extremities, cap refill is 2+ Neuro oriented x3, CN's II-XII intact bilaterally, moves all extremities and no focal motor deficits Neuro Narrative: No sensory abnormalities Psych affect normal Psych Narrative: Very pleasant and appropriate Results Lab / Micro Data Attestation: I reviewed the patient's lab results. Result Diagrams: 11/20/21 13:55 11/20/21 13:55 Labs: Laboratory Results - last 24 hr 11/20/21 13:55: WBC 9.5, RBC 4.41 L, Hgb 14.4, Hct 43.8, MCV 99.3 H, MCH 32.7 H, MCHC 32.9, RDW Std Deviation 50.7 H, RDW Coeff of Flor 13.7, Plt Count 416, MPV 9.6, Immature Gran % (Auto) 4.100 H, Neut % (Auto) 75.3 H, Lymph % (Auto) 8.4 L, [place] % (Auto) 10.1 H, Eos % (Auto) 1.3, Baso % (Auto) 0.8, Absolute Neuts (auto) 7.2, Absolute Lymphs (auto) 0.80 L, Nucleated RBC % 0 11/20/21 13:55: Sodium 139, Potassium 3.4 L, Chloride 103, Carbon Dioxide 26.0, Anion Gap 10, BUN 15, Creatinine 1.18, Estim Creat Clear Calc 69.24, Est GFR (MDRD) Af Amer 83, Est GFR (MDRD) Non-Af 68, BUN/Creatinine Ratio 12.7, Glucose 96, Calcium 8.7 11/20/21 13:55: Lactic Acid 6.1 H* Micro: Microbiology 11/20/21 15:22 Nasal Secretion SARS-CoV-2 Antigen (Rapid) - Final Radiology Impression Chest X-Ray 11/20/21 15:13 IMPRESSION: Hyperinflation. Mild increased linear markings at the lung bases suggestive of mild bibasilar scarring. Electronically Signed: Alex Brownlee MD at 15:36 EDT , Tibia/Fibula X-Ray 11/20/21 15:18 IMPRESSION: Moderate degree of diffuse soft tissue swelling. Electronically Signed: Alex Brownlee MD at 15:36 EDT , Chest CTA 11/20/21 16:06 IMPRESSION: 1. No acute findings. 2. Hepatic steatosis. Electronically Signed: Stephanie Montes MD at 17:10 EDT Reading Location ID and State: [id number] / Tel , Service support , Assessment & Plan Assessment/Plan (1) Cellulitis of leg, right: (2) Weakness: (3) Acidosis, lactic: (4) Hypertension, uncontrolled: (5) Cellulitis: QUALIFIERS: Site of cellulitis: extremity Site of cellulitis of extremity: lower extremity Laterality: unspecified laterality Qualified Code(s): L03.119 - Cellulitis of unspecified part of limb (6) Hypokalemia: (7) Lymphedema: (8) Hypoxia: PLAN: Plan Bilateral lower extremity cellulitis -Patient appears to have chronic lymphedema although his history is fairly poor and he reports its only been present for approximately 2 to 3 weeks -It looks like he had a recent admission with the same presentation about 9 months ago so I am unclear how long he has had this bilateral lower extremity edema -Echocardiogram was done at that time and only showed diastolic dysfunction -Culture wounds -Blood cultures are pending -Check MRSA wound -Patient with polymicrobial infection previously--> organisms were sensitive -Start vancomycin and Zosyn -Consult podiatry -May need to consider infectious disease consult depending on cultures -Consult wound care Acute hypoxia -Etiology is unclear -Suspect COPD at baseline with ongoing tobacco abuse -Wheezing on exam -As needed and scheduled nebulizers -Incentive spirometry -We will give one-time dose of Solu-Medrol now and then start prednisone tomorrow morning given wheezing on exam -Wean oxygen as able--> currently requiring 2 L nasal cannula -CTA of the chest pending given hypoxia and tachycardia on presentation Lactic acidosis -May be related to hypoxia and tachycardia -Bicarb and anion gap are normal -Patient has presented with this previously and it resolves quickly -No sepsis -We will give IV fluids for now and reevaluate tomorrow morning -Patient currently not on any medications that would cause a type B lactic acidosis Elevated blood pressures -Patient is not on any medication at baseline however I do anticipate he needs to be on medication -Recent echocardiogram from 12/07/2020 showed an EF of 65% with moderate concentric LVH and trivial valvular insufficiency -As needed labetalol available Hypokalemia -Potassium 3.4 admission -Replete -Recheck in a.m. Tobacco abuse -Patient indicates he has cut back to approximately 1/2 pack daily -Denies the need for nicotine replacement therapy -Recommend cessation -I do suspect the patient has baseline COPD based on physical exam DVT prophylaxis -Lovenox CODE STATUS -Full code Charges/Coding Visit Charges Inpatient E&M: 97498 Init Hosp L3
[2021-11-20] MEDS: 0.9% Normal Saline 1,000 ML 75 ML IV (17:24)
--- NOTE | 2021-11-20 17:53 | PCM.RX.CS ---
Consult Pharmacy has been consulted to manage selected antiobiotic: Vancomycin Type of Consult: New start Suspected Infection: Skin/Soft tissue Labs: Sodium 139 mmol/L (136-145) 11/20/21 13:55 Potassium 3.4 mmol/L (3.5-5.1) L 11/20/21 13:55 Chloride 103 mmol/L (98-107) 11/20/21 13:55 Carbon Dioxide 26.0 mmol/L (21.0-32.0) 11/20/21 13:55 Anion Gap 10 (5-15) 11/20/21 13:55 BUN 15 mg/dL (7-18) 11/20/21 13:55 Creatinine 1.18 mg/dL (0.70-1.30) 11/20/21 13:55 Est GFR (MDRD) Af Amer 83 mL/min (>60) 11/20/21 13:55 Est GFR (MDRD) Non-Af 68 mL/min (>60) 11/20/21 13:55 BUN/Creatinine Ratio 12.7 RATIO (10-20) 11/20/21 13:55 Glucose 96 mg/dL (74-106) 11/20/21 13:55 Microbiology: Microbiology 11/20/21 15:22 Nasal Secretion SARS-CoV-2 Antigen (Rapid) - Final Goal Trough: 15-20 mcg/mL Pharmacy Plan for Drug Dosing: NEW START IV VANCOMYCIN Consulting Physician: Dr. Chioma Mccollum Indication: SSTI Goal Trough: 15-20 SrCr: 1.18 CrCl: 84 mL/min (using adjBW to calculate) Comments: 1750mg IV x1 ordered and administered in ED 11/20/21 @1724 Vancomcyin Dose: 1750mg IV Q12hr to start 11/21/21 @0500 Pending Level: 11/22/21 @0430, prior to 4th total dose per protocol Pharmacy Service will continue to monitor and adjust dosing as required.
[2021-11-20 18:04] LABS: Reflex Lactate? Y
[2021-11-20 18:39] LABS: Lactic Acid 4.6 mmol/L (0.4-1.9)
[2021-11-20] MEDS: Ipratropium/Albuterol Sulfate 3 ML AMPUL.NEB INHALATION (18:53)
--- NOTE | 2021-11-20 18:58 | CON.PCM_ITS ---
Assessment & Plan Assessment/Plan (1) Cellulitis of right lower extremity: (2) Lymphedema of lower extremity: (3) Maggot infestation: (4) Xerosis cutis: (5) Chronic ulcer of right leg, limited to breakdown of skin: PLAN: Plan I reviewed and discussed his case today. Lichenified skin plaques, residual maggots were removed with pickup and 15 blade scalpel. The following work up and care recommendations were made: Dressing: Right lower extremity daily with Dakin wet-to-dry, gauze abdominal pad Kerlix. No dressing required for the left. Wash: Initial with antibacterial soap and water scrub brush cleanse to further remove additional skin plaques I also recommend application of Lac-Hydrin to left leg to improve and reduce xerosis. Offload: To avoid laying directly on the right posterior lateral leg ulcer site of possible. To further offload with edema reduction Edema: Bilateral lower extremity Thomas wraps recommended with bilateral limb elevation. He also has lymphedema suspected and potentially concurrent venous insufficiency. In the outpatient setting I recommend further work-up for venous insufficiency with reflux test. I also recommend more aggressive compression garments, routine daily exercise and diet with salt management. Infection: His vitals are stable. White blood cell count 9.5. Lactic acid was elevated. He was started on IV vancomycin and Zosyn. Blood cultures obtained while in ER and these are pending. I obtained an aerobic, anaerobic, MRSA PCR swab from the right skin discontinuity. Podiatric surgery is not necessary at this time. Hygiene improvement was discussed. Pain: His pain is controlled. Healing optimization: Smoking cessation was recommended. Nutritional supplementation was also optimize healing and this will be ordered, Devan. Medical management per hospitalist team is noted and appreciated. I answered all the patient's questions. I will continue to follow him closely while in house. Thank you for the consultation. Please do not hesitate to call if you have any questions. I will also plan on debriding his nails when I bring it appropriate instrumentation at his follow-up tomorrow. Demi Tineo DPM, [facility] [phone] HPI Consult Data Date of Consult: 11/20/21 HPI Narrative Reason for Consultation: Leg cellulitis HPI Narrative: DAYAMI BHAT, is a 56 M who was admitted for bilateral leg cellulitis this was seen bedside this evening. It appears she has excessive swelling that has been chronic. He reports he fell on a cement stoop over a month ago which exacerbated the swelling caused a nava wound on the right side. He also reports he saw maggots on the right leg a few days ago and he got rid of them with bug spray and soap and water. He denies fever, chill, nausea, vomiting or lower extremity pain. He denies routine dressing care or compression management. He denies known odor. [facility] Medical History Failure to thrive HTN (hypertension) Leg wound, left Leg wound, right Migraines Smoker Ulcer of left heel and midfoot with fat layer exposed Ulcers of both lower legs with fat layer exposed Home Medications NK 11/20/21 [History Last Taken Unknown] Allergy/AdvReac Type Severity Reaction Status Date / Time No Known Allergies Allergy Verified 11/20/21 13:33 Family History Father Cancer Mother Cancer Brother Hypertension Surgical History S/P tonsillectomy Social History (Updated 11/20/21 @ 17:[address] Nina Mccollum DO) household members: none and other details: alone housing: apartment current occupational status: unemployed Smoking Status: Current every day smoker tobacco type: cigarettes alcohol intake: current details: Periodic binge drinking usually on a weekly basis but not a daily drinker substance use type: does not use ROS Cardiovascular Cardiovascular: Reports erythema on extremities Gastrointestinal Gastrointestinal: Denies nausea or vomiting Musculoskeletal Musculoskeletal: Denies numbness or tingling Integumentary Integumentary: Reports skin swelling and wounds Neurologic Neurologic: Denies tingling Physical Exam Const alert and oriented x3 General Appearance: cooperative HEENT normocephalic Extremity Extremity Narrative: No calf tenderness Diminished pulses secondary to edema Feet are warm to touch from heel extends to toe without evidence of critical limb ischemia bilateral lower extremities Muscle wasting noted Active range of motion digits and ankles are challenging for this patient bilateral General Extremity: edema and no tenderness to palpation of joints or extremities; Negative for cyanosis Skin Skin Narrative: no purulence, no streaking, no odor. Lymphedema bilateral lower extremities right more than left with lichenification and skin plaques. There is some invagination of the right ankle and posterior leg with some serous drainage. The tissue exposes some hemorrhagic and there is no distinct subcutaneous tissue or deep tissue or necrosis noted. There is evidence of nonactive maggots to the right leg only. Nails are long, thick dystrophic and with subungual debris bilateral 1, 2, 3, 4, 5 bilateral General Skin Exam: erythema Neuro Neuro Narrative: epicritic sensation intact via light touch bilateral lower extremities Psych cooperative and affect normal Lab / Micro Data Result Diagrams: 11/20/21 13:55 11/20/21 13:55 Labs: Laboratory Results - last 24 hr 11/20/21 13:55: WBC 9.5, RBC 4.41 L, Hgb 14.4, Hct 43.8, MCV 99.3 H, MCH 32.7 H, MCHC 32.9, RDW Std Deviation 50.7 H, RDW Coeff of Flor 13.7, Plt Count 416, MPV 9.6, Immature Gran % (Auto) 4.100 H, Neut % (Auto) 75.3 H, Lymph % (Auto) 8.4 L, [place] % (Auto) 10.1 H, Eos % (Auto) 1.3, Baso % (Auto) 0.8, Absolute Neuts (auto) 7.2, Absolute Lymphs (auto) 0.80 L, Nucleated RBC % 0 11/20/21 13:55: Sodium 139, Potassium 3.4 L, Chloride 103, Carbon Dioxide 26.0, Anion Gap 10, BUN 15, Creatinine 1.18, Estim Creat Clear Calc 69.24, Est GFR (MDRD) Af Amer 83, Est GFR (MDRD) Non-Af 68, BUN/Creatinine Ratio 12.7, Glucose 96, Calcium 8.7 11/20/21 13:55: Lactic Acid 6.1 H* 11/20/21 17:30: Lactic Acid 4.6 H* Micro: Microbiology 11/20/21 15:22 Nasal Secretion SARS-CoV-2 Antigen (Rapid) - Final Radiology Impression Chest X-Ray 11/20/21 15:13 IMPRESSION: Hyperinflation. Mild increased linear markings at the lung bases suggestive of mild bibasilar scarring. Electronically Signed: Alex Brownlee MD at 15:36 EDT , Tibia/Fibula X-Ray 11/20/21 15:18 IMPRESSION: Moderate degree of diffuse soft tissue swelling. Electronically Signed: Alex Brownlee MD at 15:36 EDT , Chest CTA 11/20/21 16:06 IMPRESSION: 1. No acute findings. 2. Hepatic steatosis. Electronically Signed: Stephanie Montes MD at 17:10 EDT Reading Location ID and State: [id number] / Tel , Service support ,
[2021-11-20] MEDS: MethylPREDNISolone 125 MG/2 ML Vial 60 MG IV (19:38)
[2021-11-20] MEDS: Labetalol (Prefilled) 20 MG/4 ML IV (19:38)
[2021-11-20] MEDS: oxyCODONE 5 MG Tablet PO (20:56)
[2021-11-20] MEDS: Ammonium Lactate 225 gm Bottle 1 APPLIC TOPICAL (21:39)
[2021-11-20] MEDS: hydrALAZINE 20 MG/ML Vial 10 MG IV (22:51)
[2021-11-21] VITALS (16 sets, daily range): BP systolic 139–180; BP diastolic 92–115; PULSE 85–104; RESP 16–18; TEMP 36.3–36.8; O2SAT 92–99
[2021-11-21 00:05] LABS: M R Staph aureus DNA By PCR Negative (Negative); Probe Check PASS; Specimen Processing Control PASS; Staph aureus DNA By PCR NEGATIVE (Negative)
[2021-11-21 00:05] LABS: M R Staph aureus DNA By PCR Negative (Negative); Probe Check PASS; Specimen Processing Control PASS; Staph aureus DNA By PCR NEGATIVE (Negative)
[2021-11-21] MEDS: Labetalol (Prefilled) 20 MG/4 ML IV ×2 (00:23→05:17)
[2021-11-21] MEDS: hydrALAZINE 20 MG/ML Vial 10 MG IV (02:57)
[2021-11-21 06:00] LABS: Absolute Lymphocyte Count 0.37 X10^3/uL (0.83-4.51); Absolute Neutrophil Count 8.1 X10^3/uL (2.0-7.7); Basophil# 0.03 X10^3/uL; Basophil% 0.3 % (0-1); Hematocrit 41.3 % (40-54); Hemoglobin 13.2 g/dL (13.0-16.5); Lymphocyte # 0.37 X10^3/ul (0.83-4.51); Lymphocyte % 4.1 % (19-41); Mean Corpuscular Hgb 32.2 pg (27.0-32.0); Mean Corpuscular Volume 100.7 fL (80-94); Mean Platelet Vol. 9.6 fl (6.2-12.0); Monocyte# 0.29 X10^3/uL; Monocyte% 3.2 % (0-10); NRBC Flagged by Analyzer 0 % (0-5); Neutrophil # 8.11 X10^3/uL (2.7-7.7); Neutrophil % 90.8 % (47-70); POSITIVE DIFFERENTIAL YES; Platelet Count 386 K/mm3 (150-450); RBC Distribution Width CV 13.8 % (11.6-14.6); RBC Distribution Width SD 51.2 fl (35.1-43.9); White Blood Count 8.9 K/mm3 (4.4-11.0)
[2021-11-21 06:07] LABS: Differential Indicated SCAN CRITERIA MET
[2021-11-21 06:35] LABS: Anisocytosis 1+; Macrocytosis 2+
[2021-11-21 06:43] LABS: Lactic Acid 2.8 mmol/L (0.4-1.9)
[2021-11-21 06:45] LABS: ALB/GLOB Ratio 0.5 RATIO (0.9-2.4); AST(SGOT) 17 U/L (15-37); Alanine Aminotransfer ALT/SGPT 13 U/L (16-61); Albumin, Serum 2.5 g/dL (3.2-5.0); Alkaline Phosphatase 91 U/L (45-117); Anion Gap 6 (5-15); BUN 11 mg/dL (7-18); BUN/Creat Ratio 10.9 RATIO (10-20); Calcium,Total 8.2 mg/dL (8.5-10.1); Chloride 102 mmol/L (98-107); Creatinine, Serum 1.01 mg/dL (0.70-1.30); EST Glomerular Filtration Rate 82 mL/min (>60); Est Glom Filt Rate - Afr Amer 99 mL/min (>60); Estimated Creatinine Clearance 80.89 ml/min; Globulin 4.9 g/dL (2.2-4.2); Glucose 159 mg/dL (74-106); Magnesium 1.9 mg/dL (1.6-2.6); Phosphorus 3.8 mg/dL (2.5-4.9); Protein, Total 7.4 g/dL (6.4-8.2); Sodium Level 136 mmol/L (136-145)
--- NOTE | 2021-11-21 07:02 | PCM.PROGNOTE ---
Subjective Subjective This 56-year-old patient was seen bedside for follow-up of bilateral lower extremity lymphedema and right lower extremity cellulitis with wound. He denies fever, chill, nausea, vomiting. He reports his dressing has been off over night and he did not elevate. He denies pain. He also has for help safely trimming his toenails when she is unable to safely perform on his own. They are painful to touch and are long intact. Objective Data Objective Data Vital Signs: Vital Signs Temp Pulse Resp BP Pulse Ox O2 Del Method O2 Flow Rate 97.6 F L 87 18 172/109 H 99 Nasal Cannula 3 11/21/21 04:58 11/21/21 04:58 11/21/21 04:58 11/21/21 06:06 11/21/21 04:58 11/21/21 04:58 11/21/21 04:58 Oxygen Flow Rate (L/min) 3 Oxygen Delivery Method Nasal Cannula Weight: 106.594 kg Body Mass Index (BMI) 35.7 Intake & Output: Intake and Output for Last 24 Hours 11/19/21 11/20/21 11/21/21 23:59 23:59 23:59 Intake Total 1507.5 / 1507.5 937.5 / 937.5 Output Total 700 / 700 800 / 800 Balance 807.5 / 807.5 137.5 / 137.5 Lab / Micro Data Result Diagrams: 11/21/21 05:50 11/21/21 05:50 Labs: Laboratory Results - last 24 hr 11/20/21 13:55: WBC 9.5, RBC 4.41 L, Hgb 14.4, Hct 43.8, MCV 99.3 H, MCH 32.7 H, MCHC 32.9, RDW Std Deviation 50.7 H, RDW Coeff of Flor 13.7, Plt Count 416, MPV 9.6, Immature Gran % (Auto) 4.100 H, Neut % (Auto) 75.3 H, Lymph % (Auto) 8.4 L, Randall % (Auto) 10.1 H, Eos % (Auto) 1.3, Baso % (Auto) 0.8, Absolute Neuts (auto) 7.2, Absolute Lymphs (auto) 0.80 L, Nucleated RBC % 0 11/20/21 13:55: Sodium 139, Potassium 3.4 L, Chloride 103, Carbon Dioxide 26.0, Anion Gap 10, BUN 15, Creatinine 1.18, Estim Creat Clear Calc 69.24, Est GFR (MDRD) Af Amer 83, Est GFR (MDRD) Non-Af 68, BUN/Creatinine Ratio 12.7, Glucose 96, Calcium 8.7 11/20/21 13:55: Lactic Acid 6.1 H* 11/20/21 17:30: Lactic Acid 4.6 H* 11/20/21 20:30: S.aureus Protein A PCR NEGATIVE, MRSA (PCR) Negative 11/20/21 : S.aureus Protein A PCR NEGATIVE, MRSA (PCR) Negative 11/21/21 05:50: Lactic Acid 2.8 H* 11/21/21 05:50: WBC 8.9, RBC 4.10 L, Hgb 13.2, Hct 41.3, MCV 100.7 H, MCH 32.2 H, MCHC 32.0, RDW Std Deviation 51.2 H, RDW Coeff of Flor 13.8, Plt Count 386, MPV 9.6, Immature Gran % (Auto) 1.600 H, Neut % (Auto) 90.8 H, Lymph % (Auto) 4.1 L, Randall % (Auto) 3.2, Eos % (Auto) 0.0, Baso % (Auto) 0.3, Absolute Neuts (auto) 8.1 H, Absolute Lymphs (auto) 0.37 L, Nucleated RBC % 0, Anisocytosis 1+, Macrocytosis 2+ 11/21/21 05:50: Sodium 136, Potassium 4.0, Chloride 102, Carbon Dioxide 28.0, Anion Gap 6, BUN 11, Creatinine 1.01, Estim Creat Clear Calc 80.89, Est GFR (MDRD) Af Amer 99, Est GFR (MDRD) Non-Af 82, BUN/Creatinine Ratio 10.9, Glucose 159 H, Calcium 8.2 L, Phosphorus 3.8, Magnesium 1.9, Total Bilirubin 0.60, AST 17, ALT 13 L, Alkaline Phosphatase 91, Total Protein 7.4, Albumin 2.5 L, Globulin 4.9 H, Albumin/Globulin Ratio 0.5 L, TSH 2.50 Micro: Microbiology 11/20/21 15:22 Nasal Secretion SARS-CoV-2 Antigen (Rapid) - Final Radiography Diagnostic Testing: Radiology Impression Chest X-Ray 11/20/21 15:13 IMPRESSION: Hyperinflation. Mild increased linear markings at the lung bases suggestive of mild bibasilar scarring. Electronically Signed: Alex Brownlee MD at 15:36 EDT , Tibia/Fibula X-Ray 11/20/21 15:18 IMPRESSION: Moderate degree of diffuse soft tissue swelling. Electronically Signed: Alex Brownlee MD at 15:36 EDT , Chest CTA 11/20/21 16:06 IMPRESSION: 1. No acute findings. 2. Hepatic steatosis. Electronically Signed: Stephanie Montes MD at 17:10 EDT Reading Location ID and State: [id number] / Tel , Service support , Physical Exam Const alert and oriented x3 General Appearance: cooperative HEENT normocephalic Extremity Extremity Narrative: No calf tenderness Diminished pulses secondary to edema Feet are warm to touch from heel extends to toe without evidence of critical limb ischemia bilateral lower extremities Muscle wasting noted Active range of motion digits and ankles are challenging for this patient bilateral General Extremity: edema and no tenderness to palpation of joints or extremities; Negative for cyanosis Skin Skin Narrative: no purulence, no streaking, no odor. Lymphedema bilateral lower extremities right more than left with lichenification and skin plaques. There is some invagination of the right ankle and posterior leg with some serous drainage. The tissue exposes some hemorrhagic and there is no distinct subcutaneous tissue or deep tissue or necrosis noted. There is no evidence of maggots today. Nails are long, thick dystrophic and with subungual debris bilateral 1, 2, 3, 4, 5 bilateral and painful to touch and compress (moderate) General Skin Exam: erythema Neuro Neuro Narrative: epicritic sensation intact via light touch bilateral lower extremities Psych cooperative and affect normal Assessment & Plan Assessment/Plan (1) Cellulitis of right lower extremity: (2) Lymphedema of lower extremity: (3) Maggot infestation: (4) Xerosis cutis: (5) Chronic ulcer of right leg, limited to breakdown of skin: (6) Tinea unguium: (7) Toe pain, right: (8) Toe pain, left: PLAN: Plan I reviewed and discussed his case today. The following work up and care recommendations were made: Dressing: Right lower extremity daily with Dakin wet-to-dry, gauze abdominal pad Kerlix. No dressing required for the left. Wash: Initial with antibacterial soap and water scrub brush cleanse to further remove additional skin plaques I also recommend application of Lac-Hydrin to left leg to improve and reduce xerosis. Offload: To avoid laying directly on the right posterior lateral leg ulcer site of possible. To further offload with edema reduction Edema: Bilateral lower extremity Thomas wraps recommended with bilateral limb elevation. He also has lymphedema suspected and potentially concurrent venous insufficiency. In the outpatient setting I recommend further work-up for venous insufficiency with reflux test. I also recommend more aggressive compression garments, routine daily exercise and diet with salt management. Infection: His vitals are stable. White blood cell count decreased to 8.9. He was started on IV vancomycin and Zosyn. Blood cultures obtained while in ER and these are pending. I obtained an aerobic, anaerobic, MRSA PCR swab from the right skin discontinuity. The results are pending and he is mrsa negative. Podiatric surgery is not necessary at this time. Hygiene improvement was discussed. Pain: His pain is controlled. Healing optimization: Smoking cessation was recommended. Nutritional supplementation was also optimize healing and this will be ordered, Devan. Medical management per hospitalist team is noted and appreciated. The etiology of thickened toenails was briefly reviewed including fungus or microtrauma. The nails were debrided with a nail nipper after verbal consent was obtained without incident; bilateral 1,2,3,4,5. The nails were debrided in length and thickness to reduce pressure, potential fungal load, and to prevent wound formation. The patient tolerated this well. The patient elects proceed with palliative care only at this time with the nails and will hold off on further work-up. To follow-up with the [facility] if needed in the future for this condition. To wear protective and supportive shoes. To check feet daily and keep webspaces clean and dry. I answered all the patient's questions. The podiatry team will continue to follow him closely while in house. Please do not hesitate to call if you have any questions. Demi Tineo DPM, FACF[facility] [phone]
--- NOTE | 2021-11-21 08:06 | WOUNDNOTE ---
wound photo: left lower leg
--- NOTE | 2021-11-21 08:07 | WOUNDNOTE ---
wound photo: left lower leg
--- NOTE | 2021-11-21 08:07 | WOUNDNOTE ---
wound photo: right lower leg
--- NOTE | 2021-11-21 08:08 | WOUNDNOTE ---
wound photo: right lateral lower leg
[2021-11-21] MEDS: Juven (unflavored) Packet 1 PACKET PO ×2 (08:10→16:28)
[2021-11-21] MEDS: predniSONE 20 MG Tablet 40 MG PO (08:10)
[2021-11-21] MEDS: Ammonium Lactate 225 gm Bottle 1 APPLIC TOPICAL ×2 (09:52→22:57)
[2021-11-21] MEDS: DAKIN'S SOL HALF STRENGTH (=0.25%) 1 APPLIC TOPICAL (09:52)
[2021-11-21] MEDS: Enoxaparin 40 MG/0.4 ML Syringe SC (09:53)
[2021-11-21] MEDS: Carvedilol 12.5 MG Tablet PO ×2 (09:53→22:42)
[2021-11-21] MEDS: Lisinopril 10 MG Tablet PO (09:53)
[2021-11-21 10:01] LABS: Reflex Lactate? Y
[2021-11-21 11:11] LABS: Lactic Acid 3.2 mmol/L (0.4-1.9)
--- NOTE | 2021-11-21 11:20 | CASEMGMT ---
GLADYS CURZ assessment: Face to Face with patient for initial transition planning/care coordination assessment. GLADYS CRUZ introduced self and role at [facility], pt voices understanding and consents to assessment. Pt is sitting up in bed on 1-2Lnc with some tachypnea at rest. Pt is A/Ox4 and answers all questions appropriately.? Pt is Care providers, pharmacy,?and demographics verified and pt states has no one to place as contact. ? Presentation: Pt fell down step and landed on back, unable to get up Admitting dx: Bilat LE cellulitis-hx worsened, chronic wounds(last visit 02/2022) PCP: None, pt provided resources for same in past and declines need for any more resources Specialists: None [facility]erred [facility] Insurance: Self pay Prescription Benefit:?Self pay-states no concerns Living Will/HPOA: Pt does not have LW/HPOA and declines AD info. LNOK: None Living Arrangements: Pt lives alone in apt with no steps and states no concerns at home. Pt states independent with ADL's. Transportation: Pt drives self and states no transportation concerns. DME/HHC: Pt has a cane at home and declines need for any further DME. Pt states no hx of HHC or SNF. Pt states no concerns with going home at time of discharge. Pt is unemployed. Pt smokes 1/2 pack cigarettes daily and occasionally drinks ETOH. Pt voices no further concerns/needs. CM to follow for any further discharge planning/needs. Advised pt to ask for CM if any further questions/concerns/needs arise, voices understanding. Pt Goal: Home ? Plan[place] GLADYS CRUZ
--- NOTE | 2021-11-21 12:50 | PN.HOSP_ITS ---
Subjective Subjective She denies any complaints at this time. Denies any shortness of breath or coughing. States he slept well overnight. Objective Data Objective Data Vital Signs: Vital Signs Temp Pulse Resp BP Pulse Ox O2 Del Method O2 Flow Rate 98.3 F 92 18 162/109 H 95 Nasal Cannula 1 11/21/21 10:35 11/21/21 10:35 11/21/21 10:35 11/21/21 10:35 11/21/21 10:35 11/21/21 10:35 11/21/21 10:35 Oxygen Flow Rate (L/min) 1 Oxygen Delivery Method Nasal Cannula Weight: 106.594 kg Body Mass Index (BMI) 35.7 Intake & Output: Intake and Output for Last 24 Hours 11/19/21 11/20/21 11/21/21 23:59 23:59 23:59 Intake Total 1507.5 / 1507.5 2172.5 / 2172.5 Output Total 700 / 700 1950 / 1950 Balance 807.5 / 807.5 222.5 / 222.5 Lab / Micro Data Result Diagrams: 11/21/21 05:50 11/21/21 05:50 Labs: Laboratory Results - last 24 hr 11/20/21 13:55: WBC 9.5, RBC 4.41 L, Hgb 14.4, Hct 43.8, MCV 99.3 H, MCH 32.7 H, MCHC 32.9, RDW Std Deviation 50.7 H, RDW Coeff of Flor 13.7, Plt Count 416, MPV 9.6, Immature Gran % (Auto) 4.100 H, Neut % (Auto) 75.3 H, Lymph % (Auto) 8.4 L, [place] % (Auto) 10.1 H, Eos % (Auto) 1.3, Baso % (Auto) 0.8, Absolute Neuts (auto) 7.2, Absolute Lymphs (auto) 0.80 L, Nucleated RBC % 0 11/20/21 13:55: Sodium 139, Potassium 3.4 L, Chloride 103, Carbon Dioxide 26.0, Anion Gap 10, BUN 15, Creatinine 1.18, Estim Creat Clear Calc 69.24, Est GFR (MDRD) Af Amer 83, Est GFR (MDRD) Non-Af 68, BUN/Creatinine Ratio 12.7, Glucose 96, Calcium 8.7 07/13/22 13:55: Lactic Acid 6.1 H* 11/20/21 17:30: Lactic Acid 4.6 H* 11/20/21 20:30: S.aureus Protein A PCR NEGATIVE, MRSA (PCR) Negative 11/20/21 : S.aureus Protein A PCR NEGATIVE, MRSA (PCR) Negative 11/21/21 05:50: Lactic Acid 2.8 H* 11/21/21 05:50: WBC 8.9, RBC 4.10 L, Hgb 13.2, Hct 41.3, MCV 100.7 H, MCH 32.2 H , MCHC 32.0, RDW Std Deviation 51.2 H, RDW Coeff of Flor 13.8, Plt Count 386, MPV 9.6, Immature Gran % (Auto) 1.600 H, Neut % (Auto) 90.8 H, Lymph % (Auto) 4.1 L, [place] % (Auto) 3.2, Eos % (Auto) 0.0, Baso % (Auto) 0.3, Absolute Neuts (auto) 8.1 H, Absolute Lymphs (auto) 0.37 L, Nucleated RBC % 0, Anisocytosis 1+, Macrocytosis 2+ 11/21/21 05:50: Sodium 136, Potassium 4.0, Chloride 102, Carbon Dioxide 28.0, Anion Gap 6, BUN 11, Creatinine 1.01, Estim Creat Clear Calc 80.89, Est GFR (MDRD) Af Amer 99, Est GFR (MDRD) Non-Af 82, BUN/Creatinine Ratio 10.9, Glucose 159 H, Calcium 8.2 L, Phosphorus 3.8, Magnesium 1.9, Total Bilirubin 0.60, AST 17, ALT 13 L, Alkaline Phosphatase 91, Total Protein 7.4, Albumin 2.5 L, Globulin 4.9 H, Albumin/Globulin Ratio 0.5 L, TSH 2.50 11/21/21 10:30: Lactic Acid 3.2 H* Micro: Microbiology 11/20/21 Unknown Wound Drainage - Aerobic & Anaerobic Swabs Gram Stain - Final 11/20/21 Unknown Wound - Leg Gram Stain - Final 11/20/21 15:22 Nasal Secretion SARS-CoV-2 Antigen (Rapid) - Final Radiography Diagnostic Testing: Radiology Impression Chest X-Ray 11/20/21 15:13 IMPRESSION: Hyperinflation. Mild increased linear markings at the lung bases suggestive of mild bibasilar scarring. Electronically Signed: Alex Brownlee MD at 15:36 EDT , Tibia/Fibula X-Ray 11/20/21 15:18 IMPRESSION: Moderate degree of diffuse soft tissue swelling. Electronically Signed: Alex Brownlee MD at 15:36 EDT , Chest CTA 11/20/21 16:06 IMPRESSION: 1. No acute findings. 2. Hepatic steatosis. Electronically Signed: Stephanie Montes MD at 17:10 EDT Reading Location ID and State: [id number] / Tel , Service support , Physical Exam Const alert, oriented x3, no apparent distress and well nourished Constitutional Narrative: Obese, middle-age male who appears stated age, sitting up in bed, appears comfortable and nontoxic, watching television General Appearance: cooperative HEENT normocephalic, head/scalp atraumatic, hearing grossly normal bilaterally and moist oral mucous membranes HEENT Narrative: Mallampati 2-3, dentition is fair, no thrush Resp normal respiratory effort, no retractions and no use of accessory muscles Resp Narrative: Scattered end expiratory wheezes worse at the bases bilaterally, no rales or rhonchi-improved since admission Auscultation: wheezes; Negative for crackles, rales or rhonchi Cardio regular rate, regular rhythm, S1 normal heart sound, S2 normal heart sound, no murmurs, no rub, no gallops, no clicks and no JVD Cardio Narrative: S4 remains present GI normal to inspection, nondistended, normoactive bowel sounds, soft to palpation, non-tender and non-distended Extremity Extremity Narrative: Bilateral lower extremities are now wrapped and dressed, cap refill is 2+, chronic lymphedema noted, no cyanosis or clubbing Skin No no rashes or lesions noted, No no wounds, skin turgor normal, no jaundice, no petechiae and no mottling Skin Narrative: Nails have been cut, to cap refill 2+ Neuro oriented x3, CN's II-XII intact bilaterally, moves all extremities and no focal motor deficits Neuro Narrative: No sensory abnormalities Sensorium / Orientation: awake, alert, oriented to person, oriented to place and oriented to time Speech: speech normal Assessment & Plan Assessment/Plan (1) Cellulitis of leg, right: (2) Weakness: (3) Acidosis, lactic: (4) Hypertension, uncontrolled: (5) Cellulitis: QUALIFIERS: Site of cellulitis: extremity Site of cellulitis of extremity: lower extremity Laterality: unspecified laterality Qualified Code(s): L03.119 - Cellulitis of unspecified part of limb (6) Hypokalemia: (7) Lymphedema: (8) Hypoxia: PLAN: Plan Bilateral lower extremity cellulitis -Patient appears to have chronic lymphedema although his history is fairly poor and he reports its only been present for approximately 2 to 3 weeks -It looks like he had a recent admission with the same presentation about 9 months ago so I am unclear how long he has had this bilateral lower extremity edema -Echocardiogram was done at that time and only showed diastolic dysfunction -Culture wounds--> previous cultures were not surprising polymicrobial -Blood cultures are pending -MRSA wound/PCR is negative -Continue vancomycin and Zosyn for now -Podiatry following-appreciate input -Wound care following -May need ID input depending on cultures Acute hypoxia -Etiology is unclear however suspect COPD exacerbation -Suspect COPD at baseline with ongoing tobacco abuse and lung appearance on CT exam -Wheezing on exam but improved -Continue as needed and scheduled nebulizers -Incentive spirometry -We will give one-time dose of Solu-Medrol now and then start prednisone tomorrow morning given wheezing on exam -Wean oxygen as able--> has been weaned to 1 L nasal cannula with oxygen saturation at 95% -Patient is not oxygen dependent at baseline -CTA of the chest done on admission given hypoxia and tachycardia-negative for PE shows hepatic steatosis diffusely and fibrotic changes in the right lung as well as mild paraseptal emphysema Lactic acidosis -May be related to hypoxia and tachycardia -Bicarb and anion gap have remained normal -No sepsis criteria present on admission -Patient currently not on any medications that would cause a type B lactic acidosis Hypertension -Patient is not on any medication at baseline however I do anticipate he needs t o be on medication -Recent echocardiogram from 12/07/2020 showed an EF of 65% with moderate concentric LVH and trivial valvular insufficiency -Start Coreg 12.5 mg p.o. twice daily -Start lisinopril 10 mg daily -Trend blood pressures with the addition of antihypertensives -As needed hydralazine and discontinue as needed labetalol Hypokalemia -Resolved Tobacco abuse -Patient indicates he has cut back to approximately 1/2 pack daily -Denies the need for nicotine replacement therapy -Recommend cessation -I do suspect the patient has baseline COPD based on physical exam -Would recommend outpatient PFTs once clinically improved DVT prophylaxis -Lovenox CODE STATUS -Full code
[2021-11-21] MEDS: 0.9% Saline Lock 10 ML Syringe IV (16:28)
[2021-11-22] VITALS (10 sets, daily range): BP systolic 148–180; BP diastolic 90–126; PULSE 64–102; RESP 16–20; TEMP 36.3–36.6; O2SAT 90–94
[2021-11-22 04:51] LABS: Anion Gap 3 (5-15); BUN 17 mg/dL (7-18); BUN/Creat Ratio 16.3 RATIO (10-20); Calcium,Total 8.6 mg/dL (8.5-10.1); Chloride 103 mmol/L (98-107); Creatinine, Serum 1.04 mg/dL (0.70-1.30); EST Glomerular Filtration Rate 79 mL/min (>60); Est Glom Filt Rate - Afr Amer 96 mL/min (>60); Estimated Creatinine Clearance 78.56 ml/min; Glucose 114 mg/dL (74-106); Potassium 3.7 mmol/L (3.5-5.1); Sodium Level 138 mmol/L (136-145)
[2021-11-22 05:06] LABS: Vancomycin, Trough Level 21.9 ug/mL (5.0-15.0)
--- NOTE | 2021-11-22 05:34 | PCM.RX.CS ---
Consult Pharmacy has been consulted to manage selected antiobiotic: Vancomycin Type of Consult: Follow-up Labs: Sodium 138 mmol/L (136-145) 11/22/21 04:30 Potassium 3.7 mmol/L (3.5-5.1) 11/22/21 04:30 Chloride 103 mmol/L (98-107) 11/22/21 04:30 Carbon Dioxide 32.0 mmol/L (21.0-32.0) 11/22/21 04:30 Anion Gap 3 (5-15) L 11/22/21 04:30 BUN 17 mg/dL (7-18) 11/22/21 04:30 Creatinine 1.04 mg/dL (0.70-1.30) 11/22/21 04:30 Est GFR (MDRD) Af Amer 96 mL/min (>60) 11/22/21 04:30 Est GFR (MDRD) Non-Af 79 mL/min (>60) 11/22/21 04:30 BUN/Creatinine Ratio 16.3 RATIO (10-20) 11/22/21 04:30 Glucose 114 mg/dL (74-106) H 11/22/21 04:30 Vancomycin Trough 21.9 ug/mL (5.0-15.0) H 11/22/21 04:30 Microbiology: Microbiology 11/20/21 Unknown Wound Drainage - Aerobic & Anaerobic Swabs Gram Stain - Final 11/20/21 Unknown Wound Drainage - Aerobic & Anaerobic Swabs Wound Culture - Preliminary Mixed Gram Pos & Gram Neg Org 11/20/21 Unknown Wound - Leg Gram Stain - Final 11/20/21 15:22 Nasal Secretion SARS-CoV-2 Antigen (Rapid) - Final Goal Trough: 15-20 mcg/mL Pharmacy Plan for Drug Dosing: Pharmacy Service will continue to monitor and adjust dosing as required. TROUGH 21.9 @ 12 HRS. HOLD CURRENT DOSE AND FOLLOW UP RANDOM LEVEL IN 12 HOURS AND REEVALUATE Follow-Up Labs: Trough Vancomycin Labs to be done on [date and time ordered]: 11/22 @ 1630 RANDOM
[2021-11-22] MEDS: Ammonium Lactate 225 gm Bottle 1 APPLIC TOPICAL ×2 (10:04→20:47)
[2021-11-22] MEDS: Juven (unflavored) Packet 1 PACKET PO ×2 (10:05→17:00)
[2021-11-22] MEDS: DAKIN'S SOL HALF STRENGTH (=0.25%) 1 APPLIC TOPICAL (10:05)
[2021-11-22] MEDS: Enoxaparin 40 MG/0.4 ML Syringe SC (10:05)
[2021-11-22] MEDS: Carvedilol 12.5 MG Tablet PO ×2 (10:06→20:48)
[2021-11-22] MEDS: predniSONE 20 MG Tablet 40 MG PO (10:06)
[2021-11-22] MEDS: Lisinopril 20 MG Tablet PO (10:08)
--- NOTE | 2021-11-22 10:42 | PN.HOSP_ITS ---
Subjective Subjective Patient reports he slept well. No respiratory issues and now on room air. Blood pressures have improved overall with initiation of antihypertensives. Patient does report he will be able to follow-up with the wound care center as an outpatient after discharge as transportation should not be an issue. He states he has a car. He is adamant about going home at discharge. Objective Data Objective Data Vital Signs: Vital Signs Temp Pulse Resp BP Pulse Ox O2 Del Method O2 Flow Rate 97.4 F L 86 20 H 170/117 H 94 Room Air 1 11/22/21 10:01 11/22/21 10:01 11/22/21 10:01 11/22/21 10:01 11/22/21 10:01 11/22/21 10:01 11/21/21 10:35 Oxygen Flow Rate (L/min) 1 Oxygen Delivery Method Room Air Weight: 106.594 kg Body Mass Index (BMI) 35.7 Intake & Output: Intake and Output for Last 24 Hours 11/20/21 11/21/21 11/22/21 23:59 23:59 23:59 Intake Total 1507.5 / 1507.5 3420.0 / 3420.0 100 / 100 Output Total 700 / 700 2300 / 2650 650 / 650 Balance 807.5 / 807.5 1120.0 / 770.0 -550 / -550 Lab / Micro Data Result Diagrams: 11/21/21 05:50 11/22/21 04:30 Labs: Laboratory Results - last 24 hr 11/21/21 10:30: Lactic Acid 3.2 H* 11/22/21 04:30: Vancomycin Trough 21.9 H 11/22/21 04:30: Sodium 138, Potassium 3.7, Chloride 103, Carbon Dioxide 32.0, Anion Gap 3 L, BUN 17, Creatinine 1.04, Estim Creat Clear Calc 78.56, Est GFR (MDRD) Af Amer 96, Est GFR (MDRD) Non-Af 79, BUN/Creatinine Ratio 16.3, Glucose 114 H, Calcium 8.6 Micro: Microbiology 11/20/21 Unknown Wound Drainage - Aerobic & Anaerobic Swabs Gram Stain - Final 11/20/21 Unknown Wound Drainage - Aerobic & Anaerobic Swabs Wound Culture - Preliminary Mixed Gram Pos & Gram Neg Org 11/20/21 Unknown Wound Drainage - Aerobic & Anaerobic Swabs Anaerobic Culture - Preliminary 11/20/21 13:55 Blood Culture (Wb) - Right Forearm Blood Culture - Preliminary No growth in 48 hours. 11/20/21 14:40 Blood Culture (Wb) - Anticubital Left Blood Culture - Pre liminary No growth in 48 hours. 11/20/21 Unknown Wound - Leg Gram Stain - Final 11/20/21 15:22 Nasal Secretion SARS-CoV-2 Antigen (Rapid) - Final Physical Exam Const alert, oriented x3, no apparent distress and well nourished Constitutional Narrative: Obese, middle-age male who appears stated age, sitting up in a chair at the bedside, appears comfortable and nontoxic, watching television and has just finished eating his breakfast General Appearance: cooperative HEENT normocephalic, head/scalp atraumatic, hearing grossly normal bilaterally and moist oral mucous membranes HEENT Narrative: Dentition is poor, Mallampati is 2-3, no thrush Resp normal respiratory effort, no retractions, no use of accessory muscles and clear to auscultation bilaterally Resp Narrative: Diminished but clear Auscultation: Negative for crackles, rales, rhonchi or wheezes Cardio regular rate, regular rhythm, S1 normal heart sound, S2 normal heart sound, no murmurs, no rub, no gallops, no clicks and no JVD GI normal to inspection, nondistended, normoactive bowel sounds, soft to palpation, non-tender and non-distended Extremity Extremity Narrative: Bilateral lower extremities are now wrapped and dressed, cap refill is 2+, chronic lymphedema noted, no cyanosis or clubbing Skin No no rashes or lesions noted, No no wounds, skin turgor normal, no jaundice, no petechiae and no mottling Skin Narrative: cap refill 2+ Neuro oriented x3, CN's II-XII intact bilaterally, moves all extremities and no focal motor deficits Neuro Narrative: No sensory abnormalities Sensorium / Orientation: awake, alert, oriented to person, oriented to place and oriented to time Speech: speech normal Assessment & Plan Assessment/Plan (1) Cellulitis of leg, right: (2) Weakness: (3) Acidosis, lactic: (4) Hypertension, uncontrolled: (5) Cellulitis: QUALIFIERS: Site of cellulitis: extremity Site of cellulitis of extremity: lower extremity Laterality: unspecified laterality Qualified Code(s): L03.119 - Cellulitis of unspecified part of limb (6) Hypokalemia: (7) Lymphedema: (8) Hypoxia: PLAN: Plan Bilateral lower extremity cellulitis -Patient appears to have chronic lymphedema although his history is fairly poor and he reports its only been present for approximately 2 to 3 weeks -It looks like he had a recent admission with the same presentation about 9 months ago so I am unclear how long he has had this bilateral lower extremity edema -Echocardiogram was done at that time and only showed diastolic dysfunction -Wound cultures showing polymicrobial growth with identification pending -Blood cultures show no growth at 48 hours -MRSA wound/PCR is negative however gram-positive cocci noted on the Gram stain -Continue vancomycin and Zosyn for now and narrow as able -Hoping to be able to convert to oral antibiotics once identification and sensitivities has been reported -Podiatry following-appreciate input -Need outpatient follow-up at the wound center and patient states he is able to get there without any issues -Wound care following -May need ID input depending on cultures Acute hypoxia -Etiology is unclear however suspect COPD exacerbation -Suspect COPD at baseline with ongoing tobacco abuse and lung appearance on CT exam -Wheezing has resolved -Continue as needed and scheduled nebulizers -Incentive spirometry -Continue prednisone 40 mg daily and wean every third day by 10 mg--> will wean to 30 tomorrow -Patient now has been weaned to room air -CTA of the chest done on admission given hypoxia and tachycardia-negative for PE shows hepatic steatosis diffusely and fibrotic changes in the right lung as well as mild paraseptal emphysema Lactic acidosis -May be related to hypoxia and tachycardia -Resolved -Bicarb and anion gap have remained normal -No sepsis criteria present on admission -Patient currently not on any medications that would cause a type B lactic acidosis Hypertension -Sugars are better with the initiation of antihypertensives yesterday however he still slightly above goal and therefore we will increase his lisinopril as noted below -Recent echocardiogram from 12/07/2020 showed an EF of 65% with moderate concentric LVH and trivial valvular insufficiency -Continue Coreg 12.5 mg p.o. twice daily -Continue lisinopril but increase to 20 mg daily -Trend blood pressures with the addition of antihypertensives -Continue as needed hydralazine for systolic pressure greater than 160 Tobacco abuse -Patient indicates he has cut back to approximately 1/2 pack daily -Denies the need for nicotine replacement therapy -Recommend cessation -I do suspect the patient has baseline COPD based on physical exam -Would recommend outpatient PFTs once clinically improved DVT prophylaxis -Lovenox CODE STATUS -Full code Charges/Coding Visit Charges Inpatient E&M: 16043 Subs Hosp L2
[2021-11-22] MEDS: 0.9% Saline Lock 10 ML Syringe IV ×2 (13:35→20:10)
--- NOTE | 2021-11-22 15:36 | PN_ITS ---
Subjective Subjective This is a 56-year-old male seen for bilateral lower extremity lymphedema and right lower extremity cellulitis with open wound. He is seen bedside today resting comfortably following physical therapy. He denies any constitutional symptoms. He states that he has been trying to elevate his feet more. He has no further complaints today. Objective Data Objective Data Vital Signs: Vital Signs Temp Pulse Resp BP Pulse Ox O2 Del Method O2 Flow Rate 97.4 F L 86 20 H 170/117 H 94 Room Air 1 11/22/21 10:01 11/22/21 10:01 11/22/21 10:01 11/22/21 10:01 11/22/21 10:01 11/22/21 10:01 11/21/21 10:35 Oxygen Flow Rate (L/min) 1 Oxygen Delivery Method Room Air Weight: 106.594 kg Body Mass Index (BMI) 35.7 Intake & Output: Intake and Output for Last 24 Hours 11/20/21 11/21/21 11/22/21 23:59 23:59 23:59 Intake Total 1507.5 / 1507.5 3420.0 / 3420.0 550 / 550 Output Total 700 / 700 2300 / 2650 850 / 850 Balance 807.5 / 807.5 1120.0 / 770.0 -300 / -300 Lab / Micro Data Result Diagrams: 11/21/21 05:50 11/22/21 04:30 Labs: Laboratory Results - last 24 hr 11/22/21 04:30: Vancomycin Trough 21.9 H 11/22/21 04:30: Sodium 138, Potassium 3.7, Chloride 103, Carbon Dioxide 32.0, Anion Gap 3 L, BUN 17, Creatinine 1.04, Estim Creat Clear Calc 78.56, Est GFR (MDRD) Af Amer 96, Est GFR (MDRD) Non-Af 79, BUN/Creatinine Ratio 16.3, Glucose 114 H, Calcium 8.6 Micro: Microbiology 11/20/21 Unknown Wound Drainage - Aerobic & Anaerobic Swabs Gram Stain - Final 11/20/21 Unknown Wound Drainage - Aerobic & Anaerobic Swabs Wound Culture - Preliminary Mixed Gram Pos & Gram Neg Org 11/20/21 Unknown Wound - Leg Gram Stain - Final 11/20/21 Unknown Wound - Leg Wound Culture - Preliminary Coag Negative Staph Gram positive avtar 11/20/21 13:55 Blood Culture (Wb) - Right Forearm Blood Culture - Preliminary No growth in 48 hours. 11/20/21 14:40 Blood Culture (Wb) - Anticubital Left Blood Culture - P reliminary No growth in 48 hours. 11/20/21 15:22 Nasal Secretion SARS-CoV-2 Antigen (Rapid) - Final Physical Exam Const alert and oriented x3 General Appearance: cooperative HEENT normocephalic Extremity Extremity Narrative: No calf tenderness Diminished pulses secondary to edema Feet are warm to touch from heel extends to toe without evidence of critical limb ischemia bilateral lower extremities Muscle wasting noted Active range of motion digits and ankles are challenging for this patient bilateral General Extremity: edema and no tenderness to palpation of joints or extremities; Negative for cyanosis Skin Skin Narrative: no purulence, no streaking, no odor. Lymphedema bilateral lower extremities right more than left with lichenification and skin plaques. There is some invagination of the right ankle and posterior leg with some serous drainage. The tissue exposes some hemorrhagic and there is no distinct subcutaneous tissue or deep tissue or necrosis noted. There is no evidence of maggots today. Nails are long, thick dystrophic and with subungual debris bilateral 1, 2, 3, 4, 5 bilateral and painful to touch and compress (moderate) General Skin Exam: erythema Neuro Neuro Narrative: epicritic sensation intact via light touch bilateral lower extremities Psych cooperative and affect normal Assessment & Plan Assessment/Plan (1) Cellulitis of right lower extremity: (2) Lymphedema of lower extremity: (3) Maggot infestation: (4) Xerosis cutis: (5) Chronic ulcer of right leg, limited to breakdown of skin: (6) Tinea unguium: (7) Toe pain, right: (8) Toe pain, left: (9) Weakness: PLAN: Plan Patient seen and evaluated I reviewed and discussed his case today. The following work up and care recommendations were made: Dressing: Right lower extremity daily with Dakin wet-to-dry, gauze abdominal pad Kerlix, 4 inch and 6 inch Thomas. No dressing required for the left. Wash: Initial with antibacterial soap and water scrub brush cleanse to further remove additional skin plaques I applied Lac-Hydrin to left leg to improve and reduce xerosis. He is to continue to apply Lac-Hydrin daily to the left leg Offload: To avoid laying directly on the right posterior lateral leg ulcer site of possible. To further offload with edema reduction Edema: Bilateral lower extremity Thomas wraps recommended with bilateral limb elevation. He also has lymphedema suspected and potentially concurrent venous insufficiency as there is staining of the skin secondary to hemosiderin deposition. I agree with Dr. Tineo that in the outpatient setting it is recommend for further work-up for venous insufficiency with reflux test. I also recommend more aggressive compression garments, routine daily exercise, and diet with salt management. Infection: His vitals are stable. White blood cell count currently at 8.9. Patient on IV vancomycin and Zosyn. Blood cultures obtained while in ER 11/20/2021 demonstrate no growth after 48 hours. Wound culture obtained 11/20/2021 demonstrates coagulase-negative staph and a gram-positive avtar. Podiatric surgery is not necessary at this time. Hygiene improvement was discussed. Pain: His pain is controlled. Healing optimization: Smoking cessation was recommended, I discussed how smoking reduces blood flow to his extremities and vital organs and will slow his healing. He voices understanding of our discussion today. Nutritional supplementation to be continued with Devan. Medical management per hospitalist team is noted and appreciated. All questions answered to patient's satisfaction today. The podiatry team will continue to follow him closely while in house. Please do not hesitate to call if you have any questions. Omar Medina Jr. D.P.[facility] [phone] Note: [employer] speech recognition doctor of dental surgery software was used to create portions of this document. Sound-alike and misspelled words, as well as other doctor of dental surgery errors may be contained in the documentation.
[2021-11-22] MEDS: hydrALAZINE 20 MG/ML Vial 10 MG IV (15:59)
[2021-11-22 18:23] LABS: Vancomycin, Random Level 13.6 ug/mL (0.0-15.0)
--- NOTE | 2021-11-22 19:34 | PCM.RX.CS ---
Consult Pharmacy has been consulted to manage selected antiobiotic: Vancomycin Type of Consult: Follow-up Suspected Infection: Skin/Soft tissue Labs: Sodium 138 mmol/L (136-145) 11/22/21 04:30 Potassium 3.7 mmol/L (3.5-5.1) 11/22/21 04:30 Chloride 103 mmol/L (98-107) 11/22/21 04:30 Carbon Dioxide 32.0 mmol/L (21.0-32.0) 11/22/21 04:30 Anion Gap 3 (5-15) L 11/22/21 04:30 BUN 17 mg/dL (7-18) 11/22/21 04:30 Creatinine 1.04 mg/dL (0.70-1.30) 11/22/21 04:30 Est GFR (MDRD) Af Amer 96 mL/min (>60) 11/22/21 04:30 Est GFR (MDRD) Non-Af 79 mL/min (>60) 11/22/21 04:30 BUN/Creatinine Ratio 16.3 RATIO (10-20) 11/22/21 04:30 Glucose 114 mg/dL (74-106) H 11/22/21 04:30 Vancomycin Trough 21.9 ug/mL (5.0-15.0) H 11/22/21 04:30 Random Vancomycin 13.6 ug/mL (0.0-15.0) 11/22/21 16:45 Microbiology: Microbiology 11/20/21 Unknown Wound Drainage - Aerobic & Anaerobic Swabs Gram Stain - Final 11/20/21 Unknown Wound Drainage - Aerobic & Anaerobic Swabs Wound Culture - Preliminary Mixed Gram Pos & Gram Neg Org 11/20/21 Unknown Wound - Leg Gram Stain - Final 11/20/21 Unknown Wound - Leg Wound Culture - Preliminary Coag Negative Staph Gram positive avtar 11/20/21 13:55 Blood Culture (Wb) - Right Forearm Blood Culture - Preliminary No growth in 48 hours. 11/20/21 14:40 Blood Culture (Wb) - Anticubital Left Blood Culture - Preliminary No growth in 48 hours. 11/20/21 15:22 Nasal Secretion SARS-CoV-2 Antigen (Rapid) - Final Goal Trough: 15-20 mcg/mL Pharmacy Plan for Drug Dosing: VANCOMYCIN LEVEL RECEIVED Current Vancomycin Dose: ON HOLD Number of Doses Received: ON HOLD Vancomycin Level: 13.6 Hours Since Last Dose: 24H Renal Function: STABLE Renal Function Trend: STABLE Lab/Micro: G(+) avtar, no sensitivity data yet Vancomycin Plan/Comments: Patient's trough now within therapeutic range (<20). Will resume vancomycin and start patient on 2g IV Q24h to start this evening, 11/22/21, at 2000. Pending Level: 11/25/21 @1930, prior to 3rd dose of new regimen per protocol. Pharmacy Service will continue to monitor and adjust dosing as required.
[2021-11-23] VITALS (12 sets, daily range): BP systolic 151–177; BP diastolic 104–129; PULSE 67–99; RESP 18; TEMP 36.6–36.7; O2SAT 92–94
[2021-11-23] MEDS: 0.9% Saline Lock 10 ML Syringe IV ×2 (03:13→10:15)
[2021-11-23] MEDS: hydrALAZINE 20 MG/ML Vial 10 MG IV ×2 (03:13→10:13)
[2021-11-23] MEDS: Carvedilol 25 MG Tablet PO (09:51)
[2021-11-23] MEDS: Enoxaparin 40 MG/0.4 ML Syringe SC (09:52)
[2021-11-23] MEDS: Juven (unflavored) Packet 1 PACKET PO (09:52)
[2021-11-23] MEDS: hydroCHLOROthiazide 25 MG Tablet PO (09:52)
[2021-11-23] MEDS: Lisinopril 20 MG Tablet PO (09:52)
[2021-11-23] MEDS: predniSONE 10 MG Tablet 30 MG PO (09:54)
--- NOTE | 2021-11-23 11:01 | DS.PCM_ITS ---
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 Comment: Reason for Consult:: BLE wounds Reason For Visit: B LE CELLULITIS Diagnosis Discharge Diagnosis (1) Cellulitis of right lower extremity: Status: Acute Code(s): L03.115 - Cellulitis of right lower limb (2) Lymphedema of lower extremity: Status: Acute Code(s): I89.0 - Lymphedema, not elsewhere classified (3) Maggot infestation: Status: Acute Code(s): B87.9 - Myiasis, unspecified (4) Xerosis cutis: Status: Acute Code(s): L85.3 - Xerosis cutis (5) Chronic ulcer of right leg, limited to breakdown of skin: Status: Acute Code(s): L97.911 - Non-pressure chronic ulcer of unspecified part of right lower leg limited to breakdown of skin (6) Tinea unguium: Status: Acute Code(s): B35.1 - Tinea unguium (7) Toe pain, right: Status: Acute Code(s): M79.674 - Pain in right toe(s) (8) Toe pain, left: Status: Acute Code(s): M79.675 - Pain in left toe(s) (9) Weakness: Status: Acute Code(s): R53.1 - Weakness Plan Bilateral lower extremity cellulitis -Patient appears to have chronic lymphedema although his history is fairly poor and he reports its only been present for approximately 2 to 3 weeks -It looks like he had a recent admission with the same presentation about 9 months ago so I am unclear how long he has had this bilateral lower extremity edema -Echocardiogram was done at that time and only showed diastolic dysfunction -Wound cultures showing polymicrobial growth with identification pending -Blood cultures show no growth at 48 hours -MRSA wound/PCR is negative however gram-positive cocci noted on the Gram stain -Continue vancomycin and Zosyn for now and narrow as able -Hoping to be able to convert to oral antibiotics once identification and sensitivities has been reported -Podiatry following-appreciate input -Need outpatient follow-up at the wound center and patient states he is able to get there without any issues -Wound care following -May need ID input depending on cultures Acute hypoxia -Etiology is unclear however suspect COPD exacerbation -Suspect COPD at baseline with ongoing tobacco abuse and lung appearance on CT exam -Wheezing has resolved -Continue as needed and scheduled nebulizers -Incentive spirometry -Continue prednisone 40 mg daily and wean every third day by 10 mg--> will wean to 30 tomorrow -Patient now has been weaned to room air -CTA of the chest done on admission given hypoxia and tachycardia-negative for PE shows hepatic steatosis diffusely and fibrotic changes in the right lung as well as mild paraseptal emphysema Lactic acidosis -May be related to hypoxia and tachycardia -Resolved -Bicarb and anion gap have remained normal -No sepsis criteria present on admission -Patient currently not on any medications that would cause a type B lactic acidosis Hypertension -Sugars are better with the initiation of antihypertensives yesterday however he still slightly above goal and therefore we will increase his lisinopril as noted below -Recent echocardiogram from 12/07/2020 showed an EF of 65% with moderate concentric LVH and trivial valvular insufficiency -Continue Coreg 12.5 mg p.o. twice daily -Continue lisinopril but increase to 20 mg daily -Trend blood pressures with the addition of antihypertensives -Continue as needed hydralazine for systolic pressure greater than 160 Tobacco abuse -Patient indicates he has cut back to approximately 1/2 pack daily -Denies the need for nicotine replacement therapy -Recommend cessation -I do suspect the patient has baseline COPD based on physical exam -Would recommend outpatient PFTs once clinically improved DVT prophylaxis -Lovenox CODE STATUS -Full code Medications at Discharge Home Medications ammonium lactate 12 % lotion 1 applic topical BID #400 grams 11/23/21 carvedilol 25 mg tablet 25 mg PO BID #60 tabs 11/23/21 hydrochlorothiazide 25 mg tablet 25 mg PO DAILY #30 tabs 11/23/21 levofloxacin 750 mg tablet 750 mg PO DAILY #7 tabs 11/23/21 lisinopril 20 mg tablet 20 mg PO DAILY #30 tabs 11/23/21 prednisone 10 mg tablet 30 mg PO BREAKFAST #15 tabs 11/23/21 sodium hypochlorite 0.25 % solution (HySept) 1 applic topical DAILY #473 mL 11/23/21 Hospital Course Operations None Procedures EKG and - (CTA chest) Summary of Care Provided Minutes Spent on Discharge: 39 Hospital Course: Ady is a 56-year-old white male who presented to the emergency department [facility] on 11/20/2021 after suffering a fall that occurred on the front stoop of his home. The patient reported that he went out to pick up attendant a package and that his legs gave out and he fell onto his buttocks while trying to pick up attendant the package. He was unfortunately able to get back up and the neighbor called the squad. The patient reported on presentation he sits a lot at home and feels like he is deconditioned. Upon EMS arrival they noted the patient had wounds on his lower extremity that had a foul order and emanating from them and they were covered in maggots. The patient reported he had increased swelling for approximately 2 to 3 weeks however he was admitted with a similar presentation in February 2021. At that time he refused to go to a facility and was discharged home. He denied any other concurrent symptoms. Vital signs on pr esentation showed a temperature of 98.6, pulse rate was 113-129 while in the emergency department, his blood pressures were elevated throughout his ED course at 156/93 on presentation, respiratory rate was 20, oxygen saturations were initially 89% on room air.? He was placed on 2 L nasal cannula at which time his oxygen saturation improved to 92 to 97% CBC was fairly unremarkable.? His white count was normal and he had a mild left shift at 75.3% neutrophils.? His chemistry panel showed only mild hypokalemia with a potassium of 3.4.? Lactic acid was obtained and was found to be 6.1.? His chest x-ray showed hyperinflation and mild increased linear markings at the bases suggestive of bibasilar scarring.? Given the presentation of his legs films of his tibia and fibula were performed and showed only moderate degree of diffuse soft tissue swelling.? A CT of his chest was performed given his tachycardia and hypoxia and this was negative for PE and showed only hepatic steatosis and mild fibrotic changes in the right lung as well as paraseptal emphysema. Patient was admitted to the PCU and placed on broad-spectrum antibiotics. Podiatry was consulted and cultures of his wounds were obtained. Upon admission blood cultures were obtained and these had no growth at 48 hours. His blood pressure was markedly elevated throughout his hospitalization and previous echocardiogram noted diastolic dysfunction from February 2021. We started antihypertensives with Coreg that eventually we titrated up to 25 mg twice daily, lisinopril that was titrated up to 20 mg daily, and hydrochlorothiazide at 25 mg daily. He was discharged with these medications. He appeared to have a COPD exacerbation on presentation as well. He does not have a baseline history of COPD however he is a smoker and there were emphysematous changes on his CAT scan. He did well with prednisone and his wheezing resolved and he was able to be weaned to room air. His lactic acid trended down. I suspect this was a type B lactic acidosis as he had no anion gap and his bicarb was normal throughout his entire hospitalization including upon presentation. He presented similarly last time as well. He was seen by physical and Occupational Therapy and did have some significant debility. With everything going on including his wounds, blood pressure issues, and debility we did recommend skilled facility with Medicaid pending number upon discharge however he is adamant he was going to go home. I discussed with him the importance of outpatient follow-up and he reported he agreed and stated he would follow-up with the wound care center as directed. I have also directed him to follow-up with a primary care physician-name, address, and phone number were given, Dr. Tineo from podiatry in 1 week, and he was given the number for the wound care center for outpatient follow-up as well. His wound cultures as expected were polymicrobial with suspected Enterobacter and Pseudomonas after talking to microbiology as well as other organisms most probable. We will discharge him on Levaquin to complete a 10-day course of antibiotics and as noted above he will have outpatient follow-up. We will follow cultures after discharge to assure Levaquin will cover all organisms. He did express some depression during his hospital course and was seen by social work. He was reluctant to start any medication for depression as he stated he did not like mind altering drugs. He was instructed by nursing in the care of his wounds and dressings and given prescriptions for topical medications and cleansing including Dakin's solution upon discharge. With his ambulation difficulties we got him a prescription for a walker upon discharge. I do suspect there is some underlying psychiatric issues but the patient is not suicidal or homicidal and I have no reason for him to follow with crisis at this time. Social work has given him resources to follow-up with as an outpatient. He was discharged home in stable condition on 11/23/2021. Discharge diagnoses: Bilateral lower extremity cellulitis Acute hypoxia-resolved Lactic acidosis-resolved Hypertension Suspected depression Failure to thrive in the adult Tobacco abuse-recommend cessation Physical Exam Narrative Patient states he is feeling well and having no issues. He does note that ambulating is a bit difficult secondary to weakness and he is used a walker consistently however he does not have one at home. I told him we could write a prescription since he is not interested in being placed. Const alert, oriented x3, no apparent distress and well nourished Constitutional Narrative: Obese, middle-age male who appears stated age, sitting up in his bed, appears comfortable and nontoxic, watching television General Appearance: cooperative, comfortable and well developed Orientation / Consciousness: awake Exam Limitations: no limitations Nutritional Appearance: obese HEENT normocephalic, head/scalp atraumatic, hearing grossly normal bilaterally and moist oral mucous membranes HEENT Narrative: Dentition is fair, Mallampati is 2, no thrush Eyes PERRL, EOMs intact bilaterally and conjunctivae normal Eyes Narrative: No scleral icterus Neck no lymphadenopathy, supple, no JVD and no carotid bruits Neck Narrative: Trachea midline, no thyroid enlargement Resp normal respiratory effort, no retractions, no use of accessory muscles and clear to auscultation bilaterally Resp Narrative: Diminished but clear Auscultation: Negative for crackles, rales, rhonchi or wheezes Cardio regular rate, regular rhythm, S1 normal heart sound, S2 normal heart sound, no murmurs, no rub, no gallops, no clicks and no JVD GI normal to inspection, nondistended, normoactive bowel sounds, soft to palpation, non-tender and non-distended Extremity Extremity Narrative: Bilateral lower extremities are now wrapped and dressed, cap refill is 2+, chronic lymphedema noted, no cyanosis or clubbing Skin No no rashes or lesions noted, No no wounds, skin turgor normal, no jaundice, no petechiae and no mottling Skin Narrative: cap refill 2+ Neuro oriented x3, CN's II-XII intact bilaterally, moves all extremities and no focal motor deficits Neuro Narrative: No sensory abnormalities, generalized weakness specifically bilateral lower extremities Sensorium / Orientation: awake, alert, oriented to person, oriented to place and oriented to time Speech: speech normal Psych affect normal Psych Narrative: Very pleasant and appropriate Weight / BMI Weight Weight: 106.594 kg Body Mass Index (BMI) 35.7 ABG / Lab / Microbiology Data Result Diagrams: 11/21/21 05:50 11/22/21 04:30 Laboratory: Laboratory Results - last 24 hr 11/22/21 16:45: Random Vancomycin 13.6 Microbiology: Microbiology 11/20/21 Unknown Wound - Leg Gram Stain - Final 11/20/21 Unknown Wound - Leg Wound Culture - Final Coag Negative Staph Gram positive avtar 11/20/21 Unknown Wound Drainage - Aerobic & Anaerobic Swabs Gram Stain - Final 11/20/21 Unknown Wound Drainage - Aerobic & Anaerobic Swabs Wound Culture - Preliminary Gram negative avtar Gram negative avtar#2 Gram positive organism 11/20/21 13:55 Blood Culture (Wb) - Right Forearm Blood Culture - Preliminary No growth in 48 hours. 11/20/21 14:40 Blood Culture (Wb) - Anticubital Left Blood Culture - Preliminary No growth in 48 hours. 11/20/21 15:22 Nasal Secretion SARS-CoV-2 Antigen (Rapid) - Final D/C Instructions Discharge Diet: Low fat / Low cholesterol Meaningful Use Info Meaningful Use Diagnoses (Choose all that apply): None applicable Discharge Plan Admission Admit Date/Time: 11/20/21 15:55 Primary Reason for Your Visit: Weakness/Leg wounds Attending Provider: Nina Mccollum Primary Care Provider: Care Physician,No Primary Consulting Providers: Demi Tineo Instructions Additional Instructions / Restrictions: 1. Call wound center at [phone] to make appt for as soon as possible to be seen next week 2. Please do dressings as instructed Discharge Orders/Prescriptions Prescriptions: New levofloxacin 750 mg tablet 750 mg PO DAILY Qty: 7 0RF carvedilol 25 mg Tablet 25 mg PO BID Qty: 60 0RF hydrochlorothiazide 25 mg Tablet 25 mg PO DAILY Qty: 30 0RF lisinopril 20 mg Tablet 20 mg PO DAILY Qty: 30 0RF prednisone 10 mg Tablet 30 mg PO BREAKFAST Qty: 15 0RF Rx Instructions: 3 tablets x 2 days, 2 tablets x 3 days, 1 tablet x 3 days HySept 0.25 % Solution 1 applic topical DAILY Qty: 473 0RF Protocol: *Topical Application Instructions APPLICATION INSTRUCTIONS: apply right leg daily with dressing change ammonium lactate 12 % Lotion 1 applic topical BID Qty: 400 0RF Protocol: *Topical Application Instructions APPLICATION INSTRUCTIONS: apply daily left leg only Referrals / Follow Up: Demi Tineo DPM [STAFF PHYSICIAN] - In 1 Week (call thursday for appt to be seen in 1 week) Molly Prakash MD [STAFF PHYSICIAN] - Within 2 Weeks (call thursday to make an appt for new pt visit/hospital follow up) Care Physician,No Primary [Primary Care Provider] - Disposition Disposition (needs filled in before D/C Order can be placed): Home, Self Care Charges/Coding Visit Charges Inpatient E&M: [id number] Disch Hosp
[2021-11-23] MEDS: DAKIN'S SOL HALF STRENGTH (=0.25%) 1 APPLIC TOPICAL (11:05)
[2021-11-23] MEDS: Ammonium Lactate 225 gm Bottle 1 APPLIC TOPICAL (11:05)
--- NOTE | 2021-11-23 11:36 | CASEMGMT ---
Addendum entered by Zaynab Rojas 11/23/21 19:53: 1800: Per Salma pt has been able to properly demonstrate his own wound care/dressing changes. GLADYS CRUZ to room to talk w/pt. He states he feels comfortable w/doing this at home. He confirms w/RN CM he plans to contact the [facility] on Thursday to schedule an appt and he states he will let them know if he feels he is unable to continue doing the wound care/dsg changes at home. Pt also made aware, if/when he is approved for PIO, if on-going wound care is still needed, to discuss options of HHC w/the [facility]. He voices understanding. Addendum entered by Zaynab Rojas 11/23/21 19:47: 1500: Per Salma GRAHAM, pt voices concern re: doing own dressing changes. GLADYS CRUZ to room to talk w/pt. Pt states same to GLADYS CRUZ and states he does not have anyone who can come assist him in the home. Discussed various options w/pt, such as SNF and HHC. Per pt HHC, private pay, is not affordable, and pt states he does not want to go to SNF, unless it is absolutely necessary. GLADYS CRUZ informed pt, if he is unable to do dressing change, SNF may be necessary for proper wound healing. Pt voices understanding. GLADYS CRUZ recommended he try to complete them today w/RN instruction/teaching. Pt states he is willing to try. Salma GRAHAM, @ bedside and will provide education and have pt try to do his own wound care/dressing changes today with nurse instruction. Original Note: GLADYS CRUZ NOTE: Pt discharging home today. Per Dr Mccollum, pt needs a walker and script received. GLADYS CRUZ to pt's room. Pt does not have insurance/is self-pay. Pt states he does not have any money here @ [facility] to pay for the walker, but he does have money at home. He does not have anyone that can bring money to the hospital to pay for it and he does not have a ride home. Pt was made aware he caml be provided w/taxi voucher home. Pt denies having preference of DME co and is agreeable to [facility]. Script faxed to [facility] along w/demographic sheet. Call to [facility] and spoke w/Preet. She was made aware pt does not have insturance. She states she will bring paperwork to [facility] for pt to sign when she delivers the walker to pt's room. Pt was made aware. 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 He did not give a reason as to why. Explained [facility] rx assistance program and made aware this can only be used once a year. He voices understanding. Rx's to be transferred to [facility] retail pharmacy for pt to get meds before he discharges home and [facility] rx assistance to be applied. Pt denies having further discharge planning needs or concerns. Pt aware he is to f[facility]u [facility] TOVARN RN CM
--- NOTE | 2021-11-23 13:32 | PCM.PROGNOTE ---
Subjective Subjective This is a 56-year-old male seen for bilateral lower extremity lymphedema and right lower extremity cellulitis with open wound.? He is seen bedside today sitting up and eating lunch.? He states that he feels good today and that he will be going home later this afternoon. He denies any constitutional symptoms.? He states that he has been trying to elevate his feet more.? He still admits to a little bit of weakness in his legs. He has no further complaints today. Objective Data Objective Data Vital Signs: Vital Signs Temp Pulse Resp BP Pulse Ox O2 Del Method O2 Flow Rate 98.1 F 87 18 151/104 H 93 Room Air 2 11/23/21 11:11 11/23/21 11:11 11/23/21 11:11 11/23/21 11:11 11/23/21 11:11 11/23/21 11:11 11/22/21 14:10 Oxygen Flow Rate (L/min) 2 Oxygen Delivery Method Room Air Weight: 106.594 kg Body Mass Index (BMI) 35.7 Intake & Output: Intake and Output for Last 24 Hours 11/21/21 11/22/21 11/23/21 23:59 23:59 23:59 Intake Total 3420.0 / 3420.0 1640 / 1640 50 / 50 Output Total 2300 / 2650 2450 / 2450 250 / 250 Balance 1120.0 / 770.0 -810 / -810 -200 / -200 Lab / Micro Data Result Diagrams: 11/21/21 05:50 11/22/21 04:30 Labs: Laboratory Results - last 24 hr 11/22/21 16:45: Random Vancomycin 13.6 Micro: Microbiology 11/20/21 Unknown Wound - Leg Gram Stain - Final 11/20/21 Unknown Wound - Leg Wound Culture - Final Coag Negative Staph Gram positive avtar 11/20/21 Unknown Wound Drainage - Aerobic & Anaerobic Swabs Gram Stain - Final 11/20/21 Unknown Wound Drainage - Aerobic & Anaerobic Swabs Wound Culture - Preliminary Gram negative avtar Gram negative avtar#2 Gram positive organism 11/20/21 13:55 Blood Culture (Wb) - Right Forearm Blood Culture - Preliminary No growth in 48 hours. 11/20/21 14:40 Blood Culture (Wb) - Anticubital Left Blood Culture - Preliminary No growth in 48 hours. 11/20/21 15:22 Nasal Secretion SARS-CoV-2 Antigen (Rapid) - Final Physical Exam Const alert and oriented x3 General Appearance: cooperative HEENT normocephalic Extremity Extremity Narrative: No calf tenderness Diminished pulses secondary to edema Feet are warm to touch from heel extends to toe without evidence of critical limb ischemia bilateral lower extremities Muscle wasting noted Active range of motion digits and ankles are challenging for this patient bilateral General Extremity: edema and no tenderness to palpation of joints or extremities; Negative for cyanosis Skin Skin Narrative: no purulence, no streaking, no odor. Lymphedema bilateral lower extremities right more than left with lichenification and skin plaques. There is some invagination of the right ankle and posterior leg with some serous drainage. The tissue exposes some hemorrhagic and there is no distinct subcutaneous tissue or deep tissue or necrosis noted. There is no evidence of maggots today. Nails are long, thick dystrophic and with subungual debris bilateral 1, 2, 3, 4, 5 bilateral and painful to touch and compress (moderate) General Skin Exam: erythema Neuro Neuro Narrative: epicritic sensation intact via light touch bilateral lower extremities Psych cooperative and affect normal Assessment & Plan Assessment/Plan (1) Cellulitis of right lower extremity: (2) Lymphedema of lower extremity: (3) Maggot infestation: (4) Xerosis cutis: (5) Chronic ulcer of right leg, limited to breakdown of skin: (6) Tinea unguium: (7) Toe pain, right: (8) Toe pain, left: (9) Weakness: PLAN: Plan Patient seen and evaluated I reviewed and discussed his case today. His erythema is resolved today. Vital signs are stable. He was instructed to continue to utilize his walker for assistance in ambulation upon his discharge home. The following work up and care recommendations were made: Dressing: Right lower extremity daily with Dakin wet-to-dry, gauze abdominal pad Kerlix, 4 inch and 6 inch Thomas. No dressing required for the left. Wash: Initial with antibacterial soap and water scrub brush cleanse to further remove additional skin plaques I applied Lac-Hydrin to left leg to improve and reduce xerosis. He is to continue to apply Lac-Hydrin daily to the left leg Offload: To avoid laying directly on the right posterior lateral leg ulcer site of possible. To further offload with edema reduction Edema: Bilateral lower extremity Thomas wraps recommended with bilateral limb elevation. He also has lymphedema suspected and potentially concurrent venous insufficiency as there is staining of the skin secondary to hemosiderin deposition. I agree with Dr. Tineo that in the outpatient setting it is recommend for further work-up for venous insufficiency with reflux test. I also recommend more aggressive compression garments, routine daily exercise, and diet with salt management. Infection: His vitals are stable. White blood cell count currently at 8.9. Patient on IV vancomycin and Zosyn. Blood cultures obtained while in ER 11/20/2021 demonstrate no growth after 48 hours. Wound culture obtained 11/20/2021 demonstrates coagulase-negative staph and a gram-positive avtar. Podiatric surgery is not necessary at this time. Hygiene improvement was discussed. Pain: His pain is controlled. Healing optimization: Smoking cessation was recommended, I discussed how smoking reduces blood flow to his extremities and vital organs and will slow his healing. He voices understanding of our discussion today. Nutritional supplementation to be continued with Devan. Medical management per hospitalist team is noted and appreciated. All questions answered to patient's satisfaction today. He was instructed to follow-up in the wound care center following his discharge with either Dr. Grant, Dr. Tineo, or Dr. Medina. Please do not hesitate to call if you have any questions. Jr. Janki Guerra.P.M. [facility] [phone] Note: [employer] speech recognition real estate administrator software was used to create portions of this document. Sound-alike and misspelled words, as well as other real estate administrator errors may be contained in the documentation.
--- NOTE | 2021-11-23 14:09 | CASEMGMT ---
Addendum entered by Jessica Gandhi 11/23/21 23:03: Of note, APS cannot be called on pt at this time as pt is not age 60 or above. Original Note: Social Work Note SW completed RX assist for pt per RN CM's request. SW received call from RN requesting SW to speak to pt regarding home situation, community resources, etc. SW in to speak with pt. SW introduced self and role at [facility]. Pt states that he got his medications delivered. SW noticed bag of medications on pt's table. Pt states his only real concern right now is getting into his apartment. Pt states that he is texting his landlord as the landlord has his keys. Pt states that once he is able to get into his home, he has no concerns. Pt states that he has access to food and transportation. Pt states that is managing ok at home. Pt states that he does not have assistance at home. Pt states that he is able to cook, clean, and bath himself. Pt states that his apartment is cluttered. Pt states that he signed up for food delivery services [employer]. Pt states that they delivered a lot of food and it was too much food for him so he has a lot of the boxes sitting around. Pt states that currently he is not physically able to drag the boxes around at this time, pt states that he will need to get someone to help him move the boxes. SW asked pt about Mental Health History, pt states not really. Pt denied any current suicidal or homicidal thoughts. SW provided pt with a lot of community resources including [employer] [place] card, Private Duty Aides, [facility] [facility], Emergency Alert, HHC, SNF, Assisted Livings, Self-pay/financial packet, and food resources. Pt thanked this worker. Jessica Gandhi REGIONAL EHS MANAGER, [employer] MACHINE OPERATOR
--- NOTE | 2021-11-23 18:44 | NURSING ---
Addendum entered by Ashlyn See 11/23/21 19:30: Call place to Officer Fidencio to see if he could offer any assistance in contacting pt's landlord d/t them not returning calls to pt or hospital. Officer Fidencio also unsuccessful in making contact with pt's apartment complex landlord or after hours number. Officer Fidencio recommended a frida mullins to which pt was agreeable too. Pt spoke with li and will meet them at his apartment. Call placed to [employer], they will be here in 5-10 mins. Pt is ready to go and was taken to main entrance to go home. Original Note: Per pt, he has had several unsuccessful attempts to contact his landlord in order to get keys to get into his apartment. This RN has call the after hours number x2 and left message on behalf of pt asking for a call back. CM & charge aware.
== END 2021-11-23 17:35 | disposition home or self-care (01) | DRG 571 ==
LOC: ED 15:51 → PCU 16:11
PROVIDERS: Podiatrist; Admitting Provider Internal Medicine; Emergency Provider Emergency Medicine; Visit Provider Internal Medicine
DX: L03.115 Cellulitis of right lower limb (principal); E87.2 Acidosis; L97.911 Non-pressure chronic ulcer of unspecified part of right lower leg limited to breakdown of skin; R62.7 Adult failure to thrive; B35.1 Tinea unguium; J84.10 Pulmonary fibrosis, unspecified; J43.8 Other emphysema; I89.0 Lymphedema, not elsewhere classified; I10 Essential (primary) hypertension; E87.6 Hypokalemia; K76.0 Fatty (change of) liver, not elsewhere classified; F17.210 Nicotine dependence, cigarettes, uncomplicated; L85.3 Xerosis cutis; R26.2 Difficulty in walking, not elsewhere classified; R09.02 Hypoxemia; L03.116 Cellulitis of left lower limb; B87.1 Wound myiasis; B95.2 Enterococcus as the cause of diseases classified elsewhere; B96.5 Pseudomonas (aeruginosa) (mallei) (pseudomallei) as the cause of diseases classified elsewhere; B96.89 Other specified bacterial agents as the cause of diseases classified elsewhere; B95.7 Other staphylococcus as the cause of diseases classified elsewhere; M62.81 Muscle weakness (generalized); F32.A Depression, unspecified; R53.81 Other malaise; Z68.35 Body mass index [BMI] 35.0-35.9, adult; Z79.899 Other long term (current) drug therapy
CPT/HCPCS: 36415; 71045; 71275; 73590; 80048; 80053; 80202; 83605; 83735; 84100; 84443; 85025; 87040; 87070; 87075; 87077; 87186; 87205; 87640; 87811; 93005; 94640; 97162; 97166; 97530; 97535; 99251; 99285; 99406; J7030; J7040; Q9967; A4216; G0463; J0295